=== PATIENT | female | born 1930 | race Caucasian/White ===

== ENCOUNTER 2017-04-16 09:51 | Inpatient (IN) | payer OTHER ==
[~2017-04-16] VITALS: Ht 152.4 cm; Wt 54.2 kg
[~2017-04-16 09:51] MED LIST: ACET1SUP84 PO; ALLO100T PO; CALC-220 PO; CEPH500C PO; FERR1TAB23 PO; GABA10PO PO; LSN/2025 PO; MELA1TAB4 PO; METO25TA56 PO; PANT40TA PO; PRT40 PO; PRVC/40 PO; SENN1TAB65 PO; TRAM-10 PO; ULT50X PO
[2017-04-16] MEDS ORDERED: ACET325T96 PO (10:09)
[2017-04-16] MEDS ORDERED: SODIUM CHLORIDE 0.9% 1000ML 500 ML IV STA (10:09)
[2017-04-16] MEDS ORDERED: CALC-354 PO (10:09)
--- NOTE | 2017-04-16 10:17 | EMERGENCY ROOM VISIT NOTE ---
History Report prepared by Portia: Niyah Fernandez Under the Supervision of: Dr. Hector Andrade M.D. First contact with patient: 10:01 Stated Complaint: ALTERED MENTAL STATUS History of Present Illness The patient is an 86 year old female who presents to the Emergency Room via ALS with an episode of confusion that occurred nine hours ago. Per the patient's daughter, the patient was started in Xarelto in February after finding a DVT from her left groin to her left lower leg. She notes that since then, the patient has been weak and fatigued. The patient's daughter states that the patient has had difficulty transferring herself from a scooter to the toilet. She states that the patient is supposed to be on Xarelto until April. The patient's daughter states that at 0100 this morning the patient needed to go to the bathroom, noting that the patient became combative. She states that the patient had difficulty walking back after using the bathroom. She additionally notes that this morning the patient has been experiencing shakiness, clamminess , and still appears confused, noting that she is not quite herself. The patient 's daughter notes that the patient has been following with the wound clinic, noting that her left lower extremity swelling has improved. She states that the patient has been experiencing intermittent vomiting and diarrhea, noting that the patient took Imodium yesterday. The patient's daughter denies the patient having any fever, urinary symptoms, melena, or hematochezia. Source of History: patient Onset: nine hours ago Position: other (global) Quality: other (confusion) Timing: other (an episode) Associated Symptoms: + vomiting, + diarrhea, + fatigue, + weakness, No fevers, No melena, No hematochezia, No urinary symptoms Review of Systems See HPI for pertinent positives & negatives. A total of 10 systems reviewed and were otherwise negative. Past Medical & Surgical Medical Problems: (1) Arthritis (2) CVA (cerebral vascular accident) (3) HTN (hypertension) (4) Intetinal removal of cancerous polyp (5) Kidney disease Family History Diabetes mellitus Hypertension Kidney disease Kidney stones Social History Smoking Status: Never Smoker Alcohol Use: none Drug Use: none Marital Status: Housing Status: lives with family Occupation Status: retired Current/Historical Medications Scheduled Allopurinol (Zyloprim), 100 MG PO QAM Calcium Carbonate-Cholecalcife (Caltrate 600+D), 1 TAB PO BID Ferrous Sulfate (Iron), 325 MG PO BID Gabapentin (Neurontin), 300 MG PO TID Hctz/Lisinopril (Lisinopril/Hctz 20/25 Mg), 1 TAB PO QAM Metoprolol Tartrate (Lopressor) (Lopressor), 25 MG PO BID Pantoprazole (Protonix), 40 MG PO QAM Pravastatin Sod (Pravastatin Sodium), 40 MG PO DAILY Prednisone (Prednisone), 5 MG PO DAILY Rivaroxaban (Xarelto), 15 MG PO DAILY Scheduled PRN Hydrocodone/Acetaminophen 5MG/325MG ([place] 5MG/325MG), 1 TABLET PO Q6H PRN for Pain Polyethylene Glycol-Propylene (Systane), 1 DROPS OPB DAILY PRN for DRYNESS Allergies Coded Allergies: Horse-derived Products (Verified Allergy, Unknown, Tetanus - with horse serum (equine), 04/16/17) NO KNOWN DRUG ALLERGIES (Verified Allergy, Unknown, ., 03/22/15) Physical Exam Vital Signs Date Time Temp Pulse Resp B/P (MAP) Pulse Ox O2 Delivery O2 Flow Rate FiO2 04/16/17 13:13 72 04/16/17 13:05 70 18 91/42 99 Room Air 04/16/17 12:58 Room Air 04/16/17 12:29 79 16 143/90 95 Room Air 04/16/17 11:11 84 18 143/90 94 Room Air 04/16/17 10:46 95 Room Air 04/16/17 10:11 36.6 108 18 170/82 95 Room Air 04/16/17 10:02 78 Physical Exam GENERAL: Patient is in no acute distress. HEENT: No acute trauma, normocephalic atraumatic, mucous membranes moist, no nasal congestion, no scleral icterus. NECK: No stridor, no adenopathy, no meningismus, trachea is midline. CHEST: Contusions to the right breast. LUNGS: Clear to auscultation bilaterally, no wheeze, no rhonchi, breath sounds equal. HEART: Without murmurs gallops or rubs, regular rate and rhythm. ABDOMEN: Soft, nontender, bowel sounds positive, no hernias, no peritonitis. EXTREMITIES: Healing wound to the distal left leg/ankle, no drainage, surrounding erythema and warmth from the ankle down, including the foot, edema of the left foot. NEUROLOGIC: Awake, somewhat confused, moving all extremities SKIN: No rash, no jaundice, no diaphoresis. Medical Decision & Procedures ER Provider Diagnostic Interpretation: Radiology results as stated below per my review and radiologist interpretation: CT OF THE HEAD WITHOUT CONTRAST CLINICAL HISTORY: Altered mental status. Weakness. COMPARISON STUDY: No previous studies for comparison. CT DOSE: 614.27 mGy.cm TECHNIQUE: Helical axial images of the head were obtained without IV contrast. Automated exposure control was utilized for the study. A dose lowering technique was utilized adhering to the principles of ALARA. FINDINGS: No acute intracranial hemorrhage, midline shift or mass effect is present. Ventricular system is mildly dilated likely to due atrophy. Basilar cisterns are patent. There are no extra-axial collections. Chang-white differentiation is maintained. There are no findings to suggest acute dural sinus thrombosis or acute territorial infarct. There are are no significant calvarial abnormalities. IMPRESSION: No acute intracranial findings. Electronically signed by: Felix Koroma M.D. 04/16/2017 11:34 AM Dictated Date/Time: 04/16/2017 11:32 AM CHEST ONE VIEW PORTABLE CLINICAL HISTORY: Altered mental status. Weakness. COMPARISON STUDY: Chest radiograph December 07, 2014. FINDINGS: The patient is rotated. Linear left midlung opacity represents atelectasis. There is no consolidation to suggest pneumonia and there is no evidence of pulmonary edema. Cardiac size is at upper limits of normal. No pneumothorax or pleural effusion is present. Elevation of the right humeral head may reflect a chronic rotator cuff tear. Extensive vascular calcification is noted within the upper abdomen. IMPRESSION: No acute cardiopulmonary findings. Electronically signed by: Felix Koroma M.D. 04/16/2017 11:18 AM Dictated Date/Time: 04/16/2017 11:16 AM Laboratory Results 04/16/17 09:25 Red Blood Count 3.63, Mean Corpuscular Volume 97.5, Mean Corpuscular Hemoglobin 33.6, Mean Corpuscular Hemoglobin Concent 34.5, Mean Platelet Volume 9.9, Neutrophils (%) (Auto) 83.3, Lymphocytes (%) (Auto) 6.8, Monocytes (%) (Auto) 9.0, Eosinophils (%) (Auto) 0.4, Basophils (%) (Auto) 0.1, Neutrophils # (Auto) 13.26, Lymphocytes # (Auto) 1.09, Monocytes # (Auto) 1.43, Eosinophils # (Auto) 0.07, Basophils # (Auto) 0.02 04/16/17 09:25 Test 04/16/17 09:25 04/16/17 10:30 04/16/17 10:45 White Blood Count 15.94 K/uL (4.8-10.8) Red Blood Count 3.63 M/uL (4.2-5.4) Hemoglobin 12.2 g/dL (12.0-16.0) Hematocrit 35.4 % (37-47) Mean Corpuscular Volume 97.5 fL (80-100) Mean Corpuscular Hemoglobin 33.6 pg (25-34) Mean Corpuscular Hemoglobin Concent 34.5 g/dl (32-36) Platelet Count 283 K/uL (130-400) Mean Platelet Volume 9.9 fL (7.4-10.4) Neutrophils (%) (Auto) 83.3 % Lymphocytes (%) (Auto) 6.8 % Monocytes (%) (Auto) 9.0 % Eosinophils (%) (Auto) 0.4 % Basophils (%) (Auto) 0.1 % Neutrophils # (Auto) 13.26 K/uL (1.4-6.5) Lymphocytes # (Auto) 1.09 K/uL (1.2-3.4) Monocytes # (Auto) 1.43 K/uL (0.11-0.59) Eosinophils # (Auto) 0.07 K/uL (0-0.5) Basophils # (Auto) 0.02 K/uL (0-0.2) RDW Standard Deviation 51.5 fL (36.4-46.3) RDW Coefficient of Variation 14.6 % (11.5-14.5) Immature Granulocyte % (Auto) 0.4 % Immature Granulocyte # (Auto) 0.07 K/uL (0.00-0.02) Prothrombin Time 19.4 SECONDS (9.0-12.0) Prothromb Time International Ratio 1.8 (0.9-1.1) Activated Partial Thromboplast Time 59.9 SECONDS (21.0-31.0) Partial Thromboplastin Ratio 2.3 Anion Gap 9.0 mmol/L (3-11) Est Creatinine Clear Calc Drug Dose 14.5 ml/min Estimated GFR () 25.6 Estimated GFR (Non- 22.0 BUN/Creatinine Ratio 24.4 (10-20) Calcium Level 8.9 mg/dl (8.5-10.1) Magnesium Level 1.5 mg/dl (1.8-2.4) Total Bilirubin 0.4 mg/dl (0.2-1) Aspartate Amino Transf (AST/SGOT) 18 U/L (15-37) Alanine Aminotransferase (ALT/SGPT) 14 U/L (12-78) Alkaline Phosphatase 99 U/L (45-117) Troponin I < 0.015 ng/ml (0-0.045) Total Protein 6.8 gm/dl (6.4-8.2) Albumin 2.8 gm/dl (3.4-5.0) Globulin 4.0 gm/dl (2.5-4.0) Albumin/Globulin Ratio 0.7 (0.9-2) Thyroid Stimulating Hormone (TSH) 1.900 uIu/ml (0.300-4.500) Chemistry Specimen Hemolysis Lactic Acid Level 1.5 mmol/L (0.4-2.0) Ammonia < 10.0 umol/L (11-32) Urine Color YELLOW Urine Appearance CLEAR (CLEAR) Urine pH 5.0 (4.5-7.5) Urine Specific [place] 1.015 (1.000-1.030) Urine Protein NEG (NEG) Urine Glucose (UA) NEG (NEG) Urine Ketones NEG (NEG) Urine Occult Blood NEG (NEG) Urine Nitrite NEG (NEG) Urine Bilirubin NEG (NEG) Urine Urobilinogen NEG (NEG) Urine Leukocyte Esterase MODERATE (NEG) Urine WBC (Auto) 10-30 /hpf (0-5) Urine RBC (Auto) 0-4 /hpf (0-4) Urine Hyaline Casts (Auto) 0 /lpf (0-5) Urine Epithelial Cells (Auto) 0-5 /lpf (0-5) Urine Bacteria (Auto) 1+ (NEG) Laboratory results reviewed by me. Medications Administered Medications (Trade) Dose Ordered Sig/Alicia Route Start Time Stop Time Status Last Admin Dose Admin Sodium Chloride 500 ml @ 999 mls/hr Q31M STAT IV 04/16/17 10:09 04/16/17 10:39 DC 04/16/17 10:09 999 MLS/HR Acetaminophen (Tylenol Tab) 1,000 mg NOW STAT PO 04/16/17 10:56 04/16/17 10:57 DC 04/16/17 11:06 1,000 MG Sodium Chloride 1,000 ml @ 125 mls/hr Q8H STAT IV 04/16/17 11:16 04/16/17 19:15 04/16/17 11:38 125 MLS/HR Piperacillin Sod/ Tazobactam Sod (Zosyn Iv) 4.5 gm NOW STAT IV 04/16/17 11:16 04/16/17 11:17 DC 04/16/17 11:38 4.5 GM Morphine Sulfate (MoRPHine SULFATE INJ) 2 mg NOW STAT IV 04/16/17 12:24 04/16/17 12:25 DC 04/16/17 12:29 2 MG ECG Indication: other (confusion) Rate (beats per minute): 84 Rhythm: normal sinus Findings: nonspecific-ST abn, no acute ischemic change, no ectopy, other ( significant baseline artifact) ED Course 1002: The patient was evaluated in room B5. A complete history and physical exam was performed. 1009: Ordered Sodium Chloride 500 ml @ 999 mls/hr IV. 1056: Ordered Tylenol Tab 1000 mg PO. 1116: Ordered Zosyn IV 4.5 gm IV, Sodium Chloride 1000 ml @ 125 mls/hr IV. 1147: I reevaluated the patient and she is resting. I discussed the exam findings with her daughters and I discussed the treatment plan. They verbalized complete understanding and agreement. The patient will be evaluated for further treatment. 1158: I discussed the patients case with Tawanna Forrest. He is going to evaluate the patient for further treatment. 1224: Ordered Morphine Sulfate 2 mg IV. Medical Decision The patient is an 86 year old female who presents to the ED with complaints of confusion. Differential diagnoses considered include Sepsis, cellulitis, dehydration, electrolyte imbalance, liver or renal failure, pneumonia, stroke, intracranial bleeding, UTI. There is a moderate leukocytosis which would be consistent with infection. No concerning anemia. There is evidence for dehydration and acute renal failure. Magnesium is somewhat low. No hepatitis or thyroid dysfunction. Urinalysis shows possible infection versus contamination, urine culture is pending. Blood cultures are pending. EKG shows a normal sinus rhythm, no acute ischemia. Cardiac enzyme testing times one is not consistent with acute cardiac injury. Chest x-ray does not show pneumonia or CHF. Brain CT shows no acute bleed or mass effect. Lactic acid level is not elevated making sepsis less likely. A coagulopathy is present, likely consistent with her Xarelto use. Ammonia level is not elevated. The patient received IV saline, oral Tylenol, IV morphine. She was given IV Zosyn. The patient appears to have a left ankle and foot cellulitis. I think this has caused her confusion. She also is acutely dehydrated and in some renal failure. Her white count is elevated. Admission/observation is warranted. I spoke to the family, I talked to the patient. Case management has been involved. The on-call hospitalist was consulted. Medication Reconcilliation Current Medication List: was personally reviewed by me Blood Pressure Screening Patient's blood pressure: Elevated blood pressure Blood pressure disposition: Elevated BP felt to be situational, Did not require urgent referral Consults Time Called: 1146 Consulting Physician: Tawanna Forrest Returned Call: 1158 I discussed the patients case with Tawanna Forrest. He is going to evaluate the patient for further treatment. Impression Primary Impression: Cellulitis of left foot Additional Impressions: Acute renal failure Change in mental status Scribe Attestation The scribe's documentation has been prepared under my direction and personally reviewed by me in its entirety. I confirm that the note above accurately reflects all work, treatment, procedures, and medical decision making performed by me. Departure Information Dispostion Being Evaluated By Hospitalist Referrals Santi Diaz M.D. (PCP) Problem Qualifiers
[2017-04-16] MEDS ORDERED: GABA-113 PO (10:25)
[2017-04-16] MEDS ORDERED: RIVA1.5T PO (10:31)
[2017-04-16] MEDS ORDERED: HYDR-5688 PO (10:32)
[2017-04-16] MEDS ORDERED: PRED-301 PO (10:34)
[2017-04-16] MEDS ORDERED: POLYSOL4 OPB (10:36)
[2017-04-16 10:42] LABS: BASO % 0.1 %; BASO ABS # 0.02 K/uL (0-0.2); COMPLETE YES; EOS % 0.4 %; HEMATOCRIT 35.4 % (37-47); IG% 0.4 %; LYMPH % 6.8 %; LYMPH ABS # 1.09 K/uL (1.2-3.4); MEAN CELL VOLUME 97.5 fL (80-100); MEAN CORPUSCULAR HEMOGLOBIN 33.6 pg (25-34); MEAN CORPUSCULAR HGB CONC 34.5 g/dl (32-36); MEAN PLATELET VOLUME 9.9 fL (7.4-10.4); NEUT % 83.3 %; PLATELET COUNT 283 K/uL (130-400); RED BLOOD COUNT 3.63 M/uL (4.2-5.4); WHITE BLOOD COUNT 15.94 K/uL (4.8-10.8)
[2017-04-16 10:56] LABS: ALT/SGPT 14 U/L (12-78); AST/SGOT 18 U/L (15-37); BLOOD UREA NITROGEN 49 mg/dl (7-18); BUN/CREATININE RATIO 24.4 (10-20); CALCIUM 8.9 mg/dl (8.5-10.1); CARBON DIOXIDE 24 mmol/L (21-32); CHLORIDE 100 mmol/L (98-107); GLUCOSE 99 mg/dl (70-99); MAGNESIUM 1.5 mg/dl (1.8-2.4); POTASSIUM 4.8 mmol/L (3.5-5.1); SODIUM 133 mmol/L (136-145)
[2017-04-16] MEDS ORDERED: ACETAMINOPHEN 500 MG TAB PO STA (10:56)
[2017-04-16 10:57] LABS: INR 1.8 (0.9-1.1); PARTIAL THROMBOPLASTIN RATIO 2.3; PROTHROMBIN TIME (PATIENT) 19.4 SECONDS (9.0-12.0)
[2017-04-16 11:01] LABS: URINE APPEARANCE CLEAR (CLEAR); URINE BILIRUBIN NEG (NEG); URINE COLOR YELLOW; URINE EPITHELIAL CELL AUTO 0-5 /lpf (0-5); URINE NITRITE NEG (NEG); URINE SPECIFIC GRAVITY 1.015 (1.000-1.030); UROBILINOGEN NEG (NEG); ZZURINE CULT IF INDIC CATH YES
[2017-04-16 11:02] LABS: MANUAL MICROSCOPIC REQUIRED? NO; REVIEW REQ? NO
[2017-04-16 11:03] LABS: ALB/GLOB RATIO 0.7 (0.9-2); ALKALINE PHOSPHATASE 99 U/L (45-117)
[2017-04-16] MEDS ORDERED: SODIUM CHLORIDE 0.9% 1000ML 1,000 ML IV STA (11:16)
[2017-04-16] MEDS ORDERED: PIPERACILLIN/TAZOBACTAM 4.5 GM/100ML D5W IV STA (11:16)
--- NOTE | 2017-04-16 11:19 | DIAGNOSTIC IMAGING REPORT ---
CHEST ONE VIEW PORTABLE CLINICAL HISTORY: Altered mental status. Weakness. COMPARISON STUDY: Chest radiograph December 07, 2014. FINDINGS: The patient is rotated. Linear left midlung opacity represents atelectasis. There is no consolidation to suggest pneumonia and there is no evidence of pulmonary edema. Cardiac size is at upper limits of normal. No pneumothorax or pleural effusion is present. Elevation of the right humeral head may reflect a chronic rotator cuff tear. Extensive vascular calcification is noted within the upper abdomen. IMPRESSION: No acute cardiopulmonary findings. Electronically signed by: Felix Koroma M.D. 04/16/2017 11:18 AM Dictated Date/Time: 04/16/2017 11:16 AM
--- NOTE | 2017-04-16 11:36 | DIAGNOSTIC IMAGING REPORT ---
CT OF THE HEAD WITHOUT CONTRAST CLINICAL HISTORY: Altered mental status. Weakness. COMPARISON STUDY: No previous studies for comparison. CT DOSE: 614.27 mGy.cm TECHNIQUE: Helical axial images of the head were obtained without IV contrast. Automated exposure control was utilized for the study. A dose lowering technique was utilized adhering to the principles of ALARA. FINDINGS: No acute intracranial hemorrhage, midline shift or mass effect is present. Ventricular system is mildly dilated likely to due atrophy. Basilar cisterns are patent. There are no extra-axial collections. Chang-white differentiation is maintained. There are no findings to suggest acute dural sinus thrombosis or acute territorial infarct. There are are no significant calvarial abnormalities. IMPRESSION: No acute intracranial findings. Electronically signed by: Felix Koroma M.D. 04/16/2017 11:34 AM Dictated Date/Time: 04/16/2017 11:32 AM
[2017-04-16] MEDS ORDERED: MoRPHine SULFATE 2 MG/ML CARP IV STA (12:24)
[2017-04-16 12:58] VITALS: Ht 152.4 cm; Wt 54.2 kg
--- NOTE | 2017-04-16 14:13 | DIAGNOSTIC IMAGING REPORT ---
ULTRASOUND BILATERAL LOWER EXTREMITY VENOUS CLINICAL HISTORY: Change in mental status. Reported history of deep venous thrombosis.. COMPARISON STUDY: No priors. TECHNIQUE: Real-time, grayscale, and color Doppler sonography of the deep veins of the right and left lower extremity was performed from the inguinal crease to the calf. Compression and augmentation were utilized. Examination is significantly degraded by lack of patient cooperation. FINDINGS: Right lower extremity: There is no sonographic evidence of deep venous thrombosis identified in the right lower extremity. The common femoral, superficial femoral, and popliteal veins are patent and normally compressible. The greater saphenous vein and the profunda femoris vein at the junction with the common femoral vein are clear. The visualized calf veins are patent. Left lower extremity: There is no sonographic evidence of deep venous thrombosis identified in the visualized vessels of the left lower extremity. The common femoral as well as the proximal to mid portions of the superficial femoral vein are patent and normally compressible. The distal superficial femoral vein, popliteal vein, and the calf vessels are not well visualized. The greater saphenous vein and the profunda femoris vein at the junction with the common femoral vein are clear. IMPRESSION: There is no sonographic evidence of deep venous thrombosis identified in the right or left lower extremity noting nonvisualization of the distal veins of the left lower extremity as detailed above. Electronically signed by: Hector Thakkar M.D. 04/16/2017 2:11 PM Dictated Date/Time: 04/16/2017 2:09 PM
[2017-04-16 14:56] VITALS: BP 123/71; PULSE 72; TEMP 36.4; O2SAT 100
[2017-04-16] MEDS ORDERED: PIPERACILL/TAZOBAC CONSULT ACTIVE PRN (15:00)
--- NOTE | 2017-04-16 15:43 | History and Physical ---
History & Physical Date & Time of Service: Apr 16, 2017 at 15:22 Chief Complaint: Cellulitis Of Left Foot, Cva, Kidney Disease Primary Care Physician: Santi Diaz M.D. History of Present Illness This is an 86yo F with a PMH of L lower extremity DVT, paroxysmal A fib, CKD III , HTN who presents with confusion and increased agitation at night over the past week. Patient lives with her daughter, who reports that patient has become combative and agitated at night. Family has also noticed patient become increasingly confused about short terms events and her location over the past few days. In February, patient was diagnosed with an extensive L DVT at an outside hospital and was discharged on Xarelto. Was originally taking 15mg BID for the first three weeks but dose has since been decreased to 15mg daily. Over the past few days, family has noticed her L LE, specifically around the lateral ankle, becoming red and swollen. Patient has also become increasingly fatigued. Patient was confused and lethargic on exam, resulting in a limited ROS. Endorsed pain in L LE as well as mild, diffuse abdominal pain. Denies fever, chills, CP, SOB, nausea/vomiting, urinary symptoms. 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 Past Medical/Surgical History Medical Problems: (1) Arthritis Status: Chronic (2) CVA (cerebral vascular accident) Status: Resolved (3) HTN (hypertension) Status: Chronic (4) Intetinal removal of cancerous polyp Status: Resolved (5) Kidney disease Status: Chronic Family History Diabetes mellitus Hypertension Kidney disease Kidney stones Social History Smoking Status: Never Smoker Drug Use: none Marital Status: Occupational Status: retired Allergies Coded Allergies: Horse-derived Products (Verified Allergy, Unknown, Tetanus - with horse serum (equine), 04/16/17) NO KNOWN DRUG ALLERGIES (Verified Allergy, Unknown, ., 03/22/15) Home Medications Scheduled Allopurinol (Zyloprim), 100 MG PO QAM Calcium Carbonate-Cholecalcife (Caltrate 600+D), 1 TAB PO BID Ferrous Sulfate (Iron), 325 MG PO BID Gabapentin (Neurontin), 300 MG PO TID Hctz/Lisinopril (Lisinopril/Hctz 20/25 Mg), 1 TAB PO QAM Metoprolol Tartrate (Lopressor) (Lopressor), 25 MG PO BID Pantoprazole (Protonix), 40 MG PO QAM Pravastatin Sod (Pravastatin Sodium), 40 MG PO DAILY Prednisone (Prednisone), 5 MG PO DAILY Rivaroxaban (Xarelto), 15 MG PO DAILY Scheduled PRN Hydrocodone/Acetaminophen 5MG/325MG ([place] 5MG/325MG), 1 TABLET PO Q6H PRN for Pain Polyethylene Glycol-Propylene (Systane), 1 DROPS OPB DAILY PRN for DRYNESS Review of Systems Ten systems reviewed and negative except as noted in the HPI. Physical Exam Vital Signs Date Time Temp Pulse Resp B/P (MAP) Pulse Ox O2 Delivery O2 Flow Rate FiO2 04/16/17 14:56 36.4 72 16 123/71 (88) 100 Room Air 04/16/17 13:13 72 04/16/17 13:05 70 18 91/42 99 Room Air 04/16/17 12:58 Room Air 04/16/17 12:29 79 16 143/90 95 Room Air 04/16/17 11:11 84 18 143/90 94 Room Air 04/16/17 10:46 95 Room Air 04/16/17 10:11 36.6 108 18 170/82 95 Room Air 04/16/17 10:02 78 General Appearance: WD/WN (Patient sleeping during exam but arousable to questions. Limited mobility 2/2 chronic L sided weakness ), + mild distress Head: normocephalic, atraumatic Eyes: normal inspection, sclerae normal ENT: hearing grossly normal Neck: supple, no adenopathy, trachea midline Respiratory/Chest: chest non-tender, lungs clear, normal breath sounds, no respiratory distress, no accessory muscle use Cardiovascular: regular rate, rhythm, no murmur Abdomen/GI: normal bowel sounds, non tender, soft, no organomegaly Back: normal inspection Extremities/Musculoskelatal: no calf tenderness, no pedal edema (Some breakdown noted on L heel that has been present for years, per daughter. No drainage, swelling, etc.), + pertinent finding (L lateral ankle with erythema, minimal swelling and a few small areas of skin breakdown. No warmth to touch or visbale drainage.) Neurologic/Psych: alert (Oriented to person and sitatuion, but not to time or place), + motor weakness (Chronic L sided weakness. Unable to fully assess due to pt with AMS ) Skin: normal color, warm/dry Diagnostics Laboratory Results Results Past 24 Hours Test 04/16/17 09:25 04/16/17 10:30 04/16/17 10:45 Range/Units White Blood Count 15.94 4.8-10.8 K/uL Red Blood Count 3.63 4.2-5.4 M/uL Hemoglobin 12.2 12.0-16.0 g/dL Hematocrit 35.4 37-47 % Mean Corpuscular Volume 97.5 80-100 fL Mean Corpuscular Hemoglobin 33.6 25-34 pg Mean Corpuscular Hemoglobin Concent 34.5 32-36 g/dl Platelet Count 283 130-400 K/uL Mean Platelet Volume 9.9 7.4-10.4 fL Neutrophils (%) (Auto) 83.3 % Lymphocytes (%) (Auto) 6.8 % Monocytes (%) (Auto) 9.0 % Eosinophils (%) (Auto) 0.4 % Basophils (%) (Auto) 0.1 % Neutrophils # (Auto) 13.26 1.4-6.5 K/uL Lymphocytes # (Auto) 1.09 1.2-3.4 K/uL Monocytes # (Auto) 1.43 0.11-0.59 K/uL Eosinophils # (Auto) 0.07 0-0.5 K/uL Basophils # (Auto) 0.02 0-0.2 K/uL RDW Standard Deviation 51.5 36.4-46.3 fL RDW Coefficient of Variation 14.6 11.5-14.5 % Immature Granulocyte % (Auto) 0.4 % Immature Granulocyte # (Auto) 0.07 0.00-0.02 K/uL Prothrombin Time 19.4 9.0-12.0 SECONDS Prothromb Time International Ratio 1.8 0.9-1.1 Activated Partial Thromboplast Time 59.9 21.0-31.0 SECONDS Partial Thromboplastin Ratio 2.3 Sodium Level 133 136-145 mmol/L Potassium Level 4.8 3.5-5.1 mmol/L Chloride Level 100 98-107 mmol/L Carbon Dioxide Level 24 21-32 mmol/L Anion Gap 9.0 3-11 mmol/L Blood Urea Nitrogen 49 7-18 mg/dl Creatinine 2.00 0.60-1.20 mg/dl Est Creatinine Clear Calc Drug Dose 14.5 ml/min Estimated GFR () 25.6 Estimated GFR (Non- 22.0 BUN/Creatinine Ratio 24.4 10-20 Random Glucose 99 70-99 mg/dl Calcium Level 8.9 8.5-10.1 mg/dl Magnesium Level 1.5 1.8-2.4 mg/dl Total Bilirubin 0.4 0.2-1 mg/dl Aspartate Amino Transf (AST/SGOT) 18 15-37 U/L Alanine Aminotransferase (ALT/SGPT) 14 12-78 U/L Alkaline Phosphatase 99 45-117 U/L Troponin I < 0.015 0-0.045 ng/ml Total Protein 6.8 6.4-8.2 gm/dl Albumin 2.8 3.4-5.0 gm/dl Globulin 4.0 2.5-4.0 gm/dl Albumin/Globulin Ratio 0.7 0.9-2 Thyroid Stimulating Hormone (TSH) 1.900 0.300-4.500 uIu/ml Chemistry Specimen Hemolysis Lactic Acid Level 1.5 0.4-2.0 mmol/L Ammonia < 10.0 11-32 umol/L Urine Color YELLOW Urine Appearance CLEAR CLEAR Urine pH 5.0 4.5-7.5 Urine Specific [place] 1.015 1.000-1.030 Urine Protein NEG NEG Urine Glucose (UA) NEG NEG Urine Ketones NEG NEG Urine Occult Blood NEG NEG Urine Nitrite NEG NEG Urine Bilirubin NEG NEG Urine Urobilinogen NEG NEG Urine Leukocyte Esterase MODERATE NEG Urine WBC (Auto) 10-30 0-5 /hpf Urine RBC (Auto) 0-4 0-4 /hpf Urine Hyaline Casts (Auto) 0 0-5 /lpf Urine Epithelial Cells (Auto) 0-5 0-5 /lpf Urine Bacteria (Auto) 1+ NEG Microbiology Results 04/16/17 Blood Culture, Received Pending 04/16/17 Blood Culture, Received Pending 04/16/17 Urine Culture, Received Pending Diagnostic Radiology Head CT: IMPRESSION: No acute intracranial findings. Bilateral LE U/S: IMPRESSION: There is no sonographic evidence of deep venous thrombosis identified in the right or left lower extremity noting nonvisualization of the distal veins of the left lower extremity as detailed above. CXR normal EKG Normal sinus rhythm Low voltage QRS Nonspecific ST and T wave abnormality Impression Assessment and Plan This is an 86yo F with a PMH of L lower extremity DVT, paroxysmal A fib, CKD III , HTN who presents with confusion and increased agitation at night over the past week. AMS: -Patient oriented to self but not place and time -Likely 2/2 L leg cellulitis vs. bacteria in urine -Denies urinary symptoms at this time -CT head without acute abnormalities -Started broad spectrum antibiotics -Will continue to monitor L LE Cellulitis: -Leukocytosis of 15.9 -Erythema and mild swelling on exam -Started on Zosyn -Monitor CBC L heel breakdown: -Chronic breakdown since a hospitalization a year prior -Patient with decreased sensation on L side 2/2 CVA years ago -Wound care consulted H/o L LE DVT: -Diagnosed in February, -No L LE DVT visualized on today's LE ultrasound -Continue course of Xarelto (3 months in total) -Follow up with PCP for continued management DICKSON on CKD III: -Cr elevated to 2 from a baseline ~1.2 -Renally dosed antibiotic -Held Lisinopril/HCTZ -Started IVF Paroxysmal A Fib: -Rate controlled -NSR on EKG -Continue metoprolol, anticoagulation Hypomagnesemia: -H/o fluctuating Mg -Replaced -Continue to monitor HTN: -Normotensive -Held Lisinopril/HCTZ 2/2 DICKSON -Started Amlodipine 5mg Remote CVA with residual L sided weakness: -Chronic L sided weakness -Unable to fully assess motor/sensory function due to AMS -Head CT with enlarged ventricles 2/2 atrophy -No acute findings on head CT DVT Ppx: On Xarelto Code status: FULL PCP: Alirio Dispo: SW consulted to help with discharge placement. Lives with daughter but may require rehab after admission. Attending Physician Dr. Hobbs Addendum I have seen and examined the patient with JANIS Magdaleno and agree with the assessment and plan and would like to comment This is a 86 F with history of deep vein thrombus of lower extremity who as per her daughter occurred around 3 months ago in December 2016 and has remaining tablets of Xarelto due for completion next month in April, who on ultrasound in the admission has no evidence of residual deep vein thrombosis. Patient has has history of lower extremity ulcers near the ankle area of left foot in stages of healing with areas of erythema. As per patient's daughter, this was noticeable x 4 days ago on Wednesday and patient has been following care at outpatient wound care center. However was observed to be more "combative" at night and daughter brought patient to the ED for evaluation. On labs patient has leukocytosis suggestive of infectious process likely due to cellulitis of left lower extremity. Patient was seen and examined in the ED. She was lethargic but arousable to voice and able to answer questions in short sentences but majority of history was provided by patient's daughter. The patient is alert to person but not to time or place. Patient has history of stroke in 1987 with residual weakness of left side but this was difficult to assess as patient was lethargic. No acute stroke on head CT on this admission Will treat cellulitis with renally dosed Zosyn because of CKD vs DICKSON on CKD. There is some pyuria in the urine however patient denies dsyuria. Give IV hydration and replace electrolytes including magnesium. Despite lack of deep vein thrombi found on this admission's ultrasound will continue Xarelto to complete outpatient DVT therapy and because of history of arrhythmia. May need to re-evaluate anticoagulation use as outpatient. Level of Care Med/Surg Advanced Directives Existing Living Will: No Existing Power of Crew Clerk: No Resuscitation Status FULL RESUSCITATION VTE Prophylaxis VTE Risk Assessment Done? Y/N: Yes Risk Level: High Given or contraindicated: Other Anticoagulation (Xarelto)
[2017-04-16] MEDS: GABAPENTIN 300 MG CAP PO SCH ×2 (15:51→20:05)
[2017-04-16] MEDS: SODIUM CHLORIDE 0.9% 1000ML 1,000 ML IV SCH (16:56)
[2017-04-16] MEDS: MAGNESIUM SULFATE 1GM / D5W 1 GM in PREMIXED IN D5W 100 ML IV SCH ×2 (16:56→18:09)
[2017-04-16] MEDS ORDERED: MAGNESIUM SULFATE 1GM / D5W 2 GM in PREMIXED IN D5W 100 ML IV SCH (18:00)
[2017-04-16] MEDS: PIPERACILL/TAZOBAC IV 3.375 GM in DEXTROSE 5% 100ML 100 ML IV SCH (18:10)
[2017-04-16 19:12] VITALS: BP 114/69; PULSE 82; TEMP 36.4; O2SAT 97
[2017-04-16] MEDS: METOPROLOL TARTRATE 25 MG TAB PO SCH (20:05)
[2017-04-16] MEDS: HYDROCODONE/ACETAMOPHEN 5/325MG TAB PO PRN (22:23)
[2017-04-17 00:17] VITALS: BP 122/65; PULSE 89; TEMP 36.5; O2SAT 98
[2017-04-17 03:52] VITALS: BP 125/74; PULSE 73; TEMP 36.3; O2SAT 97
[2017-04-17] MEDS: SODIUM CHLORIDE 0.9% 1000ML 1,000 ML IV SCH ×2 (05:19→17:35)
[2017-04-17] MEDS: PIPERACILL/TAZOBAC IV 3.375 GM in DEXTROSE 5% 100ML 100 ML IV SCH ×2 (05:19→17:32)
[2017-04-17] MEDS: HYDROCODONE/ACETAMOPHEN 5/325MG TAB PO PRN ×2 (07:47→13:37)
[2017-04-17] MEDS: PRAVASTATIN SOD 40 MG TAB PO SCH (07:48)
[2017-04-17] MEDS: PANTOprazole SOD 40 MG TAB PO SCH (07:48)
[2017-04-17] MEDS: RIVAROXABAN TAB 15 MG TAB PO SCH (07:48)
[2017-04-17] MEDS: METOPROLOL TARTRATE 25 MG TAB PO SCH ×2 (07:48→20:00)
[2017-04-17] MEDS: GABAPENTIN 300 MG CAP PO SCH ×3 (07:49→21:55)
[2017-04-17 07:55] VITALS: BP 111/58; PULSE 80; TEMP 36.3; O2SAT 99
[2017-04-17] MEDS ORDERED: AMLODIPINE BESYLATE 5 MG TAB PO SCH (08:00)
[2017-04-17 08:22] LABS: BASO % 0.2 %; BASO ABS # 0.03 K/uL (0-0.2); COMPLETE YES; EOS % 0.7 %; HEMATOCRIT 29.1 % (37-47); IG% 0.6 %; LYMPH % 7.4 %; LYMPH ABS # 0.95 K/uL (1.2-3.4); MEAN CORPUSCULAR HEMOGLOBIN 32.3 pg (25-34); MEAN CORPUSCULAR HGB CONC 33.3 g/dl (32-36); MEAN PLATELET VOLUME 9.2 fL (7.4-10.4); MONO % 7.8 %; NEUT % 83.3 %; PLATELET COUNT 214 K/uL (130-400); WHITE BLOOD COUNT 12.77 K/uL (4.8-10.8)
[2017-04-17 08:31] LABS: INR 1.3 (0.9-1.1); PROTHROMBIN TIME (PATIENT) 14.3 SECONDS (9.0-12.0)
[2017-04-17 08:52] LABS: BUN/CREATININE RATIO 24.8 (10-20); CALCIUM 8.1 mg/dl (8.5-10.1); CREATININE 1.6 mg/dl (0.60-1.20); POTASSIUM 4.1 mmol/L (3.5-5.1)
[2017-04-17 08:58] LABS: ALB/GLOB RATIO 0.7 (0.9-2)
[2017-04-17] MEDS ORDERED: LISINOPRIL/HCTZ 20/25MG TAB PO SCH (09:00)
[2017-04-17 11:43] VITALS: BP 94/52; PULSE 65; TEMP 36.8; O2SAT 99
[2017-04-17 15:55] VITALS: BP 94/53; PULSE 83; TEMP 36.4; O2SAT 95
[2017-04-17] MEDS: HYDROCODONE/ACETAMOPHEN 5/325MG TAB PO SCH (20:00)
[2017-04-17 20:04] VITALS: BP 88/50; PULSE 94; TEMP 36.6; O2SAT 98
--- NOTE | 2017-04-17 22:34 | Progress Note ---
Medicine Progress Note Date & Time of Visit: Apr 17, 2017 at 12:28. Subjective -tolerating PO -afebrile -reports that she is hospitalized for her leg but cannot verbalize whether her leg looks better or not -cannot report clearly if she feels pain or not -appears appropriate but cannot accurately tell her story -brother and sister are in the room but they don't see her often or know her baseline -lives with daughter Ros whom I called Objective Last 8 Hrs Date Time Temp Pulse Resp B/P (MAP) Pulse Ox O2 Delivery O2 Flow Rate FiO2 04/17/17 11:43 36.8 65 18 94/52 (66) 99 Room Air 04/17/17 08:00 Room Air 04/17/17 07:55 36.3 80 20 111/58 (75) 99 Room Air Physical Exam: GEN: frail, elderly, in no acute distress, alert and appropriate. Generally has contractures of L sided extremities. HEENT: NC/AT, normal sclerae CARDIO: reg rate, S1/2 heard without m/g/r LUNGS: CTA bilaterally, no crackles, rales or wheezes, good diaphragmatic excursion ABD: soft, non-tender, non-distended, no rebound or guarding, +BS, no CVA tenderness. EXTREMITY: RP and DP palpable 2+ bilat, no LE swelling or edema, extremities are warm and well-perfused NEURO: CN 2-12 grossly intact MUSC: generally weak and contracted on the L side. Very difficult for her to move her extremities the slightest bit SKIN: warm and dry, Stage II decub on heel. Small crusted lesion that is dry and non-draining on the L ankle. Some erythema surrounding this area. Laboratory Results: 04/17/17 07:33 Red Blood Count 3.00, Mean Corpuscular Volume 97.0, Mean Corpuscular Hemoglobin 32.3, Mean Corpuscular Hemoglobin Concent 33.3, Mean Platelet Volume 9.2, Neutrophils (%) (Auto) 83.3, Lymphocytes (%) (Auto) 7.4, Monocytes (%) (Auto) 7.8, Eosinophils (%) (Auto) 0.7, Basophils (%) (Auto) 0.2, Neutrophils # (Auto) 10.63, Lymphocytes # (Auto) 0.95, Monocytes # (Auto) 0.99, Eosinophils # (Auto) 0.09, Basophils # (Auto) 0.03 04/17/17 07:33 Test 04/16/17 09:25 04/16/17 10:30 04/16/17 10:45 04/17/17 07:33 Activated Partial Thromboplast Time 59.9 SECONDS (21.0-31.0) Partial Thromboplastin Ratio 2.3 Troponin I < 0.015 ng/ml (0-0.045) Thyroid Stimulating Hormone (TSH) 1.900 uIu/ml (0.300-4.500) Chemistry Specimen Hemolysis Lactic Acid Level 1.5 mmol/L (0.4-2.0) Ammonia < 10.0 umol/L (11-32) Urine Color YELLOW Urine Appearance CLEAR (CLEAR) Urine pH 5.0 (4.5-7.5) Urine Specific [place] 1.015 (1.000-1.030) Urine Protein NEG (NEG) Urine Glucose (UA) NEG (NEG) Urine Ketones NEG (NEG) Urine Occult Blood NEG (NEG) Urine Nitrite NEG (NEG) Urine Bilirubin NEG (NEG) Urine Urobilinogen NEG (NEG) Urine Leukocyte Esterase MODERATE (NEG) Urine WBC (Auto) 10-30 /hpf (0-5) Urine RBC (Auto) 0-4 /hpf (0-4) Urine Hyaline Casts (Auto) 0 /lpf (0-5) Urine Epithelial Cells (Auto) 0-5 /lpf (0-5) Urine Bacteria (Auto) 1+ (NEG) White Blood Count 12.77 K/uL (4.8-10.8) Red Blood Count 3.00 M/uL (4.2-5.4) Hemoglobin 9.7 g/dL (12.0-16.0) Hematocrit 29.1 % (37-47) Mean Corpuscular Volume 97.0 fL (80-100) Mean Corpuscular Hemoglobin 32.3 pg (25-34) Mean Corpuscular Hemoglobin Concent 33.3 g/dl (32-36) Platelet Count 214 K/uL (130-400) Mean Platelet Volume 9.2 fL (7.4-10.4) Neutrophils (%) (Auto) 83.3 % Lymphocytes (%) (Auto) 7.4 % Monocytes (%) (Auto) 7.8 % Eosinophils (%) (Auto) 0.7 % Basophils (%) (Auto) 0.2 % Neutrophils # (Auto) 10.63 K/uL (1.4-6.5) Lymphocytes # (Auto) 0.95 K/uL (1.2-3.4) Monocytes # (Auto) 0.99 K/uL (0.11-0.59) Eosinophils # (Auto) 0.09 K/uL (0-0.5) Basophils # (Auto) 0.03 K/uL (0-0.2) RDW Standard Deviation 51.6 fL (36.4-46.3) RDW Coefficient of Variation 14.5 % (11.5-14.5) Immature Granulocyte % (Auto) 0.6 % Immature Granulocyte # (Auto) 0.08 K/uL (0.00-0.02) Prothrombin Time 14.3 SECONDS (9.0-12.0) Prothromb Time International Ratio 1.3 (0.9-1.1) Anion Gap 9.0 mmol/L (3-11) Est Creatinine Clear Calc Drug Dose 18.1 ml/min Estimated GFR () 33.5 Estimated GFR (Non- 28.9 BUN/Creatinine Ratio 24.8 (10-20) Calcium Level 8.1 mg/dl (8.5-10.1) Magnesium Level 2.0 mg/dl (1.8-2.4) Total Bilirubin 0.3 mg/dl (0.2-1) Aspartate Amino Transf (AST/SGOT) 12 U/L (15-37) Alanine Aminotransferase (ALT/SGPT) 9 U/L (12-78) Alkaline Phosphatase 79 U/L (45-117) Total Protein 5.3 gm/dl (6.4-8.2) Albumin 2.1 gm/dl (3.4-5.0) Globulin 3.2 gm/dl (2.5-4.0) Albumin/Globulin Ratio 0.7 (0.9-2) Date/Time Source Procedure Growth Status 04/16/17 10:30 Blood Blood Culture Pending Received 04/16/17 10:45 Urine,Catheterized Urine Culture - Preliminary Gram Negative Bacilli Gram Negative Bacilli#2 Resulted Last 24 Hours Test 04/16/17 19:05 04/17/17 07:33 Magnesium Level 2.3 mg/dl 2.0 mg/dl White Blood Count 12.77 K/uL Red Blood Count 3.00 M/uL Hemoglobin 9.7 g/dL Hematocrit 29.1 % Mean Corpuscular Volume 97.0 fL Mean Corpuscular Hemoglobin 32.3 pg Mean Corpuscular Hemoglobin Concent 33.3 g/dl Platelet Count 214 K/uL Mean Platelet Volume 9.2 fL Neutrophils (%) (Auto) 83.3 % Lymphocytes (%) (Auto) 7.4 % Monocytes (%) (Auto) 7.8 % Eosinophils (%) (Auto) 0.7 % Basophils (%) (Auto) 0.2 % Neutrophils # (Auto) 10.63 K/uL Lymphocytes # (Auto) 0.95 K/uL Monocytes # (Auto) 0.99 K/uL Eosinophils # (Auto) 0.09 K/uL Basophils # (Auto) 0.03 K/uL RDW Standard Deviation 51.6 fL RDW Coefficient of Variation 14.5 % Immature Granulocyte % (Auto) 0.6 % Immature Granulocyte # (Auto) 0.08 K/uL Prothrombin Time 14.3 SECONDS Prothromb Time International Ratio 1.3 Sodium Level 136 mmol/L Potassium Level 4.1 mmol/L Chloride Level 105 mmol/L Carbon Dioxide Level 22 mmol/L Anion Gap 9.0 mmol/L Blood Urea Nitrogen 40 mg/dl Creatinine 1.60 mg/dl Est Creatinine Clear Calc Drug Dose 18.1 ml/min Estimated GFR () 33.5 Estimated GFR (Non- 28.9 BUN/Creatinine Ratio 24.8 Random Glucose 67 mg/dl Calcium Level 8.1 mg/dl Total Bilirubin 0.3 mg/dl Aspartate Amino Transf (AST/SGOT) 12 U/L Alanine Aminotransferase (ALT/SGPT) 9 U/L Alkaline Phosphatase 79 U/L Total Protein 5.3 gm/dl Albumin 2.1 gm/dl Globulin 3.2 gm/dl Albumin/Globulin Ratio 0.7 Assessment & Plan 86 yo F presented to ER via EMS after family had difficulty with her bring confused and combative at home in addition to noticing more weakness than usual. She had a stroke in the past with chronic L sided weakness and has limited mobility as a result. Her baseline is bedbound and she is able to perform transfers on her own only. She recently underwent two rounds of abx for 10 days at a time which ended recently; she simultaneously had issues with diarrhea off and on for about one week that was controlled with Imodium per daughter/paint formulator. She is noted to be on [place] 5/325mg BID and chronic daily prednisone at home for pain control with severe OA. She also was recently diagnosed with an extensive DVT in the L leg for which she is on Xarelto and has almost completed her 3 month treatment. Venous doppler of the leg revealed no evidence of DVT yesterday. She had some increased agitation overnight but when Hedrick was placed she calmed down per nursing staff. They report she was having issues with urinary retention. 1. Metabolic encephalopathy-multifactorial including UTI with urinary retention , DICKSON 2/2 dehydration from diarrhea, [place], steroid use, etc. CT head was nonacute and patient seems improved from a mental standpoint today. She is alert and following the conversation. Leg wound does not appear infected. 2. UTI-GNB on culture, cont with empiric Zosyn until culture returns. Leukocytosis has improved. 3. Acute urinary retention likely 2/2 UTI-cont Hedrick and after a few days of treatment of infection, attempt Hedrick trial. 4. L ankle wound-two rounds of abx as outpatient and no infection present at this time. Wound is closed and non-draining. Appreciate wound care consult for this and heel pressure ulcer that is more chronic. 5. Stage II heel ulcer-h/o stroke, turn [id number]. Wound care. Waffle boots are in place. 6. LLE DVT-on Xarelto, patient has leg pain and knee pain which may be related to thromboembolic disease, however, no residual major DVT was seen on admission doppler u/s. She also has severe OA for which she is on prednisone 5mg PO daily , [place] and gabapentin. Finish 3 month Xarelto course. 7. Long-term steroid use-restarted prednisone held on admission to avoid adrenal insufficiency 8. OA-severe, cont [place] BID (now scheduled), gabapentin and prednisone, however, may want to do a trial of Tylenol/Tramadol scheduled to get pain under better control. Will follow clinical course. 9. DICKSON on CKD III-likely related to recent diarrhea with diuretic use. Meds renally dosed and lis/HCTZ held. IVF continued until she is reliably tolerating PO. Improved. 10. h/o stroke with residual L sided weakness and decreased baseline functioning. PT/OT to evaluate. 11. PAF-rate controlled, sinus on EKG and on exam. Cont metoprolol and on Xarelto at this time 12. HTN-Lis/HCTZ held and amlodipine 5mg started. 13. Anemia-uncertain etiology, poss phlebotomy vs dilution from IVF. No indication for transfusion at this time. Will monitor. DVT Ppx: On Xarelto Code status: FULL PCP: Alirio Dispo: SW consulted to help with discharge placement. Lives with daughter but may require rehab after admission. PT/OT ordered for evaluation. Kimberly Silva DO [facility] Hospitalist 1800: I spoke with daughter shantell for 20 minutes and reviewed the assessment and plan with her. All questions were answered. Current Inpatient Medications: Current Inpatient Medications Medications (Trade) Dose Ordered Sig/Alicia Route Start Time Stop Time Status Last Admin Dose Admin Piperacillin Sod/ Tazobactam Sod 3.375 gm/Dextrose 115 ml @ 28.75 mls/ hr Q12H IV 04/16/17 18:00 04/26/17 17:59 04/17/17 05:19 28.75 MLS/HR Gabapentin (Neurontin Cap) 300 mg TID PO 04/16/17 14:00 05/16/17 13:59 04/17/17 07:49 300 MG Metoprolol Tartrate (Lopressor Tab) 25 mg BID PO 04/16/17 20:00 05/16/17 20:59 04/17/17 07:48 25 MG Pantoprazole Sodium (Protonix Tab) 40 mg QAM PO 04/17/17 08:00 05/17/17 08:59 04/17/17 07:48 40 MG Pravastatin Sodium (Pravachol Tab) 40 mg DAILY PO 04/17/17 08:00 05/17/17 08:59 04/17/17 07:48 40 MG Rivaroxaban (Xarelto Tab) 15 mg DAILY PO 04/17/17 08:00 05/17/17 08:59 04/17/17 07:48 15 MG Amlodipine Besylate (Norvasc Tab) 5 mg QAM PO 04/17/17 08:00 05/17/17 08:59 04/17/17 07:49 5 MG Piperacillin Sod/ Tazobactam Sod (Consult) 1 ea UD PRN N/A 04/16/17 15:00 05/16/17 14:59 Sodium Chloride 1,000 ml @ 75 mls/hr [id number] IV 04/16/17 16:00 05/16/17 15:59 04/17/17 05:19 75 MLS/HR Acetaminophen/ Hydrocodone Bitart ([place] 5/325 Tab) 1 tab Q6H PRN PO 04/16/17 22:00 04/30/17 21:59 04/17/17 07:47 1 TAB
[2017-04-18] VITALS (8 sets, daily range): BP systolic 82–119; BP diastolic 47–79; PULSE 64–106; TEMP 36.3–36.7; O2SAT 93–98
[2017-04-18] MEDS: HYDROCODONE/ACETAMOPHEN 5/325MG TAB PO SCH (04:18)
[2017-04-18] MEDS: SODIUM CHLORIDE 0.9% 1000ML 1,000 ML IV SCH (05:02)
[2017-04-18] MEDS: PIPERACILL/TAZOBAC IV 3.375 GM in DEXTROSE 5% 100ML 100 ML IV SCH (05:55)
[2017-04-18 08:32] LABS: HEMATOCRIT 27.1 % (37-47); MEAN CELL VOLUME 97.5 fL (80-100); MEAN CORPUSCULAR HEMOGLOBIN 33.1 pg (25-34); MEAN CORPUSCULAR HGB CONC 33.9 g/dl (32-36); PLATELET COUNT 204 K/uL (130-400); RED BLOOD COUNT 2.78 M/uL (4.2-5.4); WHITE BLOOD COUNT 8.37 K/uL (4.8-10.8)
[2017-04-18 08:58] LABS: BUN/CREATININE RATIO 22.5 (10-20); CALCIUM 7.4 mg/dl (8.5-10.1); CREATININE 1.2 mg/dl (0.60-1.20)
[2017-04-18] MEDS: PRAVASTATIN SOD 40 MG TAB PO SCH (09:21)
[2017-04-18] MEDS: RIVAROXABAN TAB 15 MG TAB PO SCH (09:21)
[2017-04-18] MEDS: PANTOprazole SOD 40 MG TAB PO SCH (09:21)
[2017-04-18] MEDS: GABAPENTIN 300 MG CAP PO SCH ×3 (09:21→21:12)
[2017-04-18] MEDS: CIPROFLOXACIN 500 MG TAB PO SCH ×2 (11:09→21:12)
[2017-04-18] MEDS ORDERED: POLYETHYLENE (MIRALAX) 17 GM PACK PO ONE (14:43)
[2017-04-18] MEDS ORDERED: SODIUM CHLORIDE 0.9% 500ML 500 ML IV SCH (15:00)
[2017-04-18] MEDS: ACETAMINOPHEN 500 MG TAB PO SCH ×2 (15:28→21:53)
[2017-04-18] MEDS: TRAMADOL HCL 50 MG TAB PO SCH ×2 (15:33→22:17)
[2017-04-19] MEDS: ACETAMINOPHEN 500 MG TAB PO SCH ×3 (05:32→22:34)
[2017-04-19] MEDS: TRAMADOL HCL 50 MG TAB PO SCH (06:26)
[2017-04-19 07:45] VITALS: BP 121/65; PULSE 82; TEMP 36.5; O2SAT 100
[2017-04-19] MEDS: POLYETHYLENE (MIRALAX) 17 GM PACK PO SCH (09:00)
--- NOTE | 2017-04-19 09:12 | Progress Note ---
Medicine Progress Note Date & Time of Visit: Apr 18, 2017 at 14:45. Subjective tolerating PO mentating well reporting pain in her L knee that is significant and not much improved with the norco no diarrhea or BM today moved closer to nurses station overnight Objective Last 8 Hrs Date Time Temp Pulse Resp B/P (MAP) Pulse Ox O2 Delivery O2 Flow Rate FiO2 04/18/17 08:00 Room Air 04/18/17 07:42 36.6 89 16 96/57 (70) 98 Room Air Physical Exam: GEN: frail, elderly, in slight distress holding her L knee and reporting pain, alert and appropriate. Generally has contractures of L sided extremities. HEENT: NC/AT, normal sclerae CARDIO: reg rate, S1/2 heard without m/g/r LUNGS: CTA bilaterally, no crackles, rales or wheezes, good diaphragmatic excursion ABD: soft, non-tender, non-distended, no rebound or guarding, +BS, no CVA tenderness. EXTREMITY: RP and DP palpable 2+ bilat, no LE swelling or edema, extremities are warm and well-perfused NEURO: CN 2-12 grossly intact MUSC: generally weak and contracted on the L side. Very difficult for her to move her extremities or move around in the bed on her own. SKIN: warm and dry, Stage II decub on heel. Small crusted lesion that is dry and non-draining on the L ankle. Some pink area surrounding. Laboratory Results: Last 24 Hours Test 04/18/17 07:51 White Blood Count 8.37 K/uL Red Blood Count 2.78 M/uL Hemoglobin 9.2 g/dL Hematocrit 27.1 % Mean Corpuscular Volume 97.5 fL Mean Corpuscular Hemoglobin 33.1 pg Mean Corpuscular Hemoglobin Concent 33.9 g/dl RDW Standard Deviation 52.0 fL RDW Coefficient of Variation 14.4 % Platelet Count 204 K/uL Mean Platelet Volume 9.0 fL Sodium Level 136 mmol/L Potassium Level 4.0 mmol/L Chloride Level 109 mmol/L Carbon Dioxide Level 20 mmol/L Anion Gap 7.0 mmol/L Blood Urea Nitrogen 27 mg/dl Creatinine 1.20 mg/dl Est Creatinine Clear Calc Drug Dose 24.2 ml/min Estimated GFR () 47.4 Estimated GFR (Non- 40.9 BUN/Creatinine Ratio 22.5 Random Glucose 71 mg/dl Calcium Level 7.4 mg/dl Assessment & Plan 86 yo F presented to ER via EMS after family had difficulty with her bring confused and combative at home in addition to noticing more weakness than usual. She had a stroke in the past with chronic L sided weakness and has limited mobility as a result. Her baseline is bedbound and she is able to perform transfers on her own only. She recently underwent two rounds of abx for 10 days at a time which ended recently; she simultaneously had issues with diarrhea off and on for about one week that was controlled with Imodium per daughter/javascript ui developer. She is noted to be on Cambria 5/325mg BID and chronic daily prednisone at home for pain control with severe OA. She also was recently diagnosed with an extensive DVT in the L leg for which she is on Xarelto and has almost completed her 3 month treatment. Venous doppler of the leg revealed no evidence of DVT on admission. She had some increased agitation overnight just after arriving to floor, but when Hedrick was placed she calmed down per nursing staff. They report she was having issues with urinary retention. The patient has a UTI. 1. Metabolic encephalopathy-multifactorial including UTI with urinary retention , DICKSON 2/2 dehydration from diarrhea, Cambria, steroid use, etc. CT head was nonacute and patient seems improved from a mental standpoint today. She is alert and following the conversation. Leg wound does not appear infected. DICKSON is improved to baseline, no diarrhea noted this admission. However, she has significant pain in her L knee presumably from OA for which daily prednisone, gabapentin and Cambria do not seem to be helping. Stopping Cambria at this time, starting scheduled Tylenol 1000mg q8hrs with Tramadol 50 q8h to get more in control of the pain. Gave some Miralax to help her continue to move her bowels in light of narcotics. 2. UTI-E coli and Klebsiella present in urine. Zosyn changed to Cipro PO 3. Acute urinary retention likely 2/2 UTI-cont Hedrick and after a few days of treatment of infection, attempt Hedrick trial. I would like to see her more clinically improved prior to removing. 4. L ankle wound-two rounds of abx as outpatient and no infection present at this time. Wound is closed and non-draining. Appreciate wound care consult for this and heel pressure ulcer that is more chronic. 5. Stage II heel ulcer-h/o stroke, turn [id number]. Wound care. Waffle boots are in place. 6. LLE DVT-on Xarelto, patient has leg pain and knee pain which may be related to thromboembolic disease, however, no residual major DVT was seen on admission doppler u/s. She also has severe OA for which she is on prednisone 5mg PO daily , Cambria and gabapentin. Finish 3 month Xarelto course. 7. Long-term steroid use-restarted prednisone held on admission to avoid adrenal insufficiency. consider stopping as outpatient as appears to have none to minimal benefit in controlling her pain. 8. OA-severe, plan as above. 9. DICKSON on CKD III-resolved to baseline. Likely related to recent diarrhea with diuretic use. Meds renally dosed and lis/HCTZ held. IVF. 10. h/o stroke with residual L sided weakness and decreased baseline functioning. PT/OT to evaluate. 11. PAF-rate controlled, sinus on EKG and on exam. Cont metoprolol and on Xarelto at this time 12. HTN-Lis/HCTZ held and amlodipine 5mg started, which was held after patient became hypotensive requiring fluids. No antihypertensives at this time. 13. Anemia-uncertain etiology, poss phlebotomy vs dilution from IVF. No indication for transfusion at this time. Will monitor. DVT Ppx: On Xarelto Code status: FULL PCP: Alirio Dispo: KB consulted to help with discharge placement. Lives with daughter but may require rehab/ permanent placement? after admission. PT/OT ordered for evaluation. Kimberly Silva DO [facility] Hospitalist Current Inpatient Medications: Current Inpatient Medications Medications (Trade) Dose Ordered Sig/Alicia Route Start Time Stop Time Status Last Admin Dose Admin Gabapentin (Neurontin Cap) 300 mg TID PO 04/16/17 14:00 05/16/17 13:59 04/18/17 13:49 300 MG Metoprolol Tartrate (Lopressor Tab) 25 mg BID PO 04/16/17 20:00 05/16/17 20:59 Future Hold 04/17/17 07:48 25 MG Pantoprazole Sodium (Protonix Tab) 40 mg QAM PO 04/17/17 08:00 05/17/17 08:59 04/18/17 09:21 40 MG Pravastatin Sodium (Pravachol Tab) 40 mg DAILY PO 04/17/17 08:00 05/17/17 08:59 04/18/17 09:21 40 MG Rivaroxaban (Xarelto Tab) 15 mg DAILY PO 04/17/17 08:00 05/17/17 08:59 04/18/17 09:21 15 MG Prednisone (PredniSONE TAB) 5 mg DAILY PO 04/18/17 08:00 05/18/17 07:59 04/18/17 09:21 5 MG Acetaminophen/ Hydrocodone Bitart (Cambria 5/325 Tab) 1 tab BID PO 04/17/17 20:00 04/30/17 21:59 04/18/17 04:18 1 TAB Ciprofloxacin (Cipro Tab) 500 mg BID PO 04/18/17 09:30 04/22/17 09:29 04/18/17 11:09 500 MG
[2017-04-19] MEDS: GABAPENTIN 300 MG CAP PO SCH ×3 (09:20→20:21)
[2017-04-19] MEDS: CIPROFLOXACIN 500 MG TAB PO SCH ×2 (09:20→20:21)
[2017-04-19] MEDS: PANTOprazole SOD 40 MG TAB PO SCH (09:20)
[2017-04-19] MEDS: RIVAROXABAN TAB 15 MG TAB PO SCH (09:20)
[2017-04-19] MEDS: PRAVASTATIN SOD 40 MG TAB PO SCH (09:20)
[2017-04-19 14:57] VITALS: BP 144/82; PULSE 106; TEMP 36.5; O2SAT 96
[2017-04-19 23:32] VITALS: BP 137/73; PULSE 117; TEMP 36.7; O2SAT 93
--- NOTE | 2017-04-20 00:08 | Progress Note ---
Medicine Progress Note Date & Time of Visit: Apr 19, 2017 at 14:19. Subjective tolerating PO had BM today states that her pain is well controlled on the Tylenol/Tramadol combination schedule-would continue with this and stop Bountiful. afebrile Feeling well Objective Last 8 Hrs Date Time Temp Pulse Resp B/P (MAP) Pulse Ox O2 Delivery O2 Flow Rate FiO2 04/19/17 07:55 Room Air 04/19/17 07:45 36.5 82 16 121/65 (83) 100 Room Air Physical Exam: GEN: frail, elderly, in slight distress holding her L knee and reporting pain, alert and appropriate. Generally has contractures of L sided extremities. HEENT: NC/AT, normal sclerae CARDIO: reg rate, S1/2 heard without m/g/r LUNGS: CTA bilaterally, no crackles, rales or wheezes, good diaphragmatic excursion ABD: soft, non-tender, non-distended, no rebound or guarding, +BS, no CVA tenderness. EXTREMITY: RP and DP palpable 2+ bilat, no LE swelling or edema, extremities are warm and well-perfused NEURO: CN 2-12 grossly intact MUSC: generally weak and contracted on the L side. Very difficult for her to move her extremities or move around in the bed on her own. SKIN: warm and dry, Stage II decub on heel. Small crusted lesion that is dry and non-draining on the L ankle. Some pink area surrounding. Assessment & Plan 86 yo F presented to ER via EMS after family had difficulty with her bring confused and combative at home in addition to noticing more weakness than usual. She had a stroke in the past with chronic L sided weakness and has limited mobility as a result. Her baseline is bedbound and she is able to perform transfers on her own only. She recently underwent two rounds of abx for 10 days at a time which ended recently; she simultaneously had issues with diarrhea off and on for about one week that was controlled with Imodium per daughter/crib tender. She is noted to be on Bountiful 5/325mg BID and chronic daily prednisone at home for pain control with severe OA. She also was recently diagnosed with an extensive DVT in the L leg for which she is on Xarelto and has almost completed her 3 month treatment. Venous doppler of the leg revealed no evidence of DVT on admission. She had some increased agitation overnight just after arriving to floor, but when Hedrick was placed she calmed down per nursing staff. They report she was having issues with urinary retention. The patient has a UTI. 1. Metabolic encephalopathy-multifactorial including UTI with urinary retention , DICKSON 2/2 dehydration from diarrhea, Bountiful, steroid use, etc. CT head was nonacute and patient seems improved from a mental standpoint today. She is alert and following the conversation. Leg wound does not appear infected. DICKSON is improved to baseline, no diarrhea noted this admission. However, she has significant pain in her L knee presumably from OA for which daily prednisone, gabapentin and Bountiful do not seem to be helping. Stopping Bountiful at this time, starting scheduled Tylenol 1000mg q8hrs with Tramadol 50 q8h to get more in control of the pain. Gave some Miralax to help her continue to move her bowels in light of narcotics. 2. UTI-E coli and Klebsiella present in urine. Zosyn changed to Cipro PO 3. Acute urinary retention likely 2/2 UTI-Hedrick removed on 04/20 4. L ankle wound-two rounds of abx as outpatient and no infection present at this time. Wound is closed and non-draining. Appreciate wound care consult for this and heel pressure ulcer that is more chronic. 5. Stage II heel ulcer-h/o stroke, turn [id number]. Wound care. Waffle boots are in place. 6. LLE DVT-on Xarelto, patient has leg pain and knee pain which may be related to thromboembolic disease, however, no residual major DVT was seen on admission doppler u/s. She also has severe OA for which she is on prednisone 5mg PO daily , Bountiful and gabapentin. Finish 3 month Xarelto course. 7. Long-term steroid use-restarted prednisone held on admission to avoid adrenal insufficiency. consider stopping as outpatient as appears to have none to minimal benefit in controlling her pain. 8. OA-severe, plan as above. She is out of pain today. 9. DICKSON on CKD III-resolved to baseline. Likely related to recent diarrhea with diuretic use. Meds renally dosed and lis/HCTZ held. IVF. 10. h/o stroke with residual L sided weakness and decreased baseline functioning. PT/OT to evaluate. 11. PAF-rate controlled, sinus on EKG and on exam. Cont metoprolol and on Xarelto at this time 12. HTN-Lis/HCTZ held and amlodipine 5mg started, which was held after patient became hypotensive requiring fluids. No antihypertensives at this time. 13. Anemia-uncertain etiology, poss phlebotomy vs dilution from IVF. No indication for transfusion at this time. Will monitor. DVT Ppx: On Xarelto Code status: FULL PCP: Alirio Dispo: SW consulted to help with discharge placement. Lives with daughter but may require rehab/ permanent placement? after admission. PT/OT ordered for evaluation and recommends 24/7 supervision or SNF. Will need to discuss with the daughter what she would like to do. Pt is currently against any rehab centers despite being bedbound. Appreciate CM assistance with this. Kimberly Silva DO [facility] Hospitalist Current Inpatient Medications: Current Inpatient Medications Medications (Trade) Dose Ordered Sig/Alicia Route Start Time Stop Time Status Last Admin Dose Admin Gabapentin (Neurontin Cap) 300 mg TID PO 04/16/17 14:00 05/16/17 13:59 04/19/17 13:57 300 MG Metoprolol Tartrate (Lopressor Tab) 25 mg BID PO 04/16/17 20:00 05/16/17 20:59 Future Hold 04/17/17 07:48 25 MG Pantoprazole Sodium (Protonix Tab) 40 mg QAM PO 04/17/17 08:00 05/17/17 08:59 04/19/17 09:20 40 MG Pravastatin Sodium (Pravachol Tab) 40 mg DAILY PO 04/17/17 08:00 05/17/17 08:59 04/19/17 09:20 40 MG Rivaroxaban (Xarelto Tab) 15 mg DAILY PO 04/17/17 08:00 05/17/17 08:59 04/19/17 09:20 15 MG Prednisone (PredniSONE TAB) 5 mg DAILY PO 04/18/17 08:00 05/18/17 07:59 04/19/17 09:20 5 MG Ciprofloxacin (Cipro Tab) 500 mg BID PO 04/18/17 09:30 04/22/17 09:29 04/19/17 09:20 500 MG Acetaminophen (Tylenol Tab) 1,000 mg Q8 PO 04/18/17 14:45 05/18/17 14:44 04/19/17 13:57 1,000 MG Tramadol HCl (Ultram Tab) 50 mg Q8H PO 04/18/17 14:45 04/19/17 14:44 04/19/17 06:26 50 MG Polyethylene (Miralax Powder Packet) 17 gm DAILY PO 04/19/17 09:00 05/19/17 08:59
[2017-04-20] MEDS: ACETAMINOPHEN 500 MG TAB PO SCH ×3 (06:23→20:20)
[2017-04-20 07:25] VITALS: BP 102/67; PULSE 127; TEMP 36.5; O2SAT 99
[2017-04-20] MEDS: POLYETHYLENE (MIRALAX) 17 GM PACK PO SCH (08:41)
[2017-04-20] MEDS: CIPROFLOXACIN 500 MG TAB PO SCH ×2 (08:43→20:20)
[2017-04-20] MEDS: PANTOprazole SOD 40 MG TAB PO SCH (08:43)
[2017-04-20] MEDS: RIVAROXABAN TAB 15 MG TAB PO SCH (08:43)
[2017-04-20] MEDS: PRAVASTATIN SOD 40 MG TAB PO SCH (08:43)
[2017-04-20] MEDS: GABAPENTIN 300 MG CAP PO SCH ×3 (08:43→20:20)
--- NOTE | 2017-04-20 10:56 | Progress Note ---
Subjective Date of Service: Apr 20, 2017. Subjective Pt evaluation today including: conversation w/ patient, physical exam, lab review, review of studies, review of inpatient medication list Saw/examined the patient in room 254 Family is in the room at bedside patient is seated in a chair conversing appropriately Problem List Medical Problems: (1) Acute renal failure Status: Acute (2) Cellulitis of left foot Status: Acute (3) Kidney disease Status: Chronic Review of Systems Cardiac: No chest pain All Other Systems: Reviewed and Negative Medications Current Inpatient Medications Medications (Trade) Dose Ordered Sig/Alicia Route Start Time Stop Time Status Last Admin Dose Admin Gabapentin (Neurontin Cap) 300 mg TID PO 04/16/17 14:00 05/16/17 13:59 04/20/17 08:43 300 MG Metoprolol Tartrate (Lopressor Tab) 25 mg BID PO 04/16/17 20:00 05/16/17 20:59 Future hold 04/17/17 07:48 25 MG Pantoprazole Sodium (Protonix Tab) 40 mg QAM PO 04/17/17 08:00 05/17/17 08:59 04/20/17 08:43 40 MG Pravastatin Sodium (Pravachol Tab) 40 mg DAILY PO 04/17/17 08:00 05/17/17 08:59 04/20/17 08:43 40 MG Rivaroxaban (Xarelto Tab) 15 mg DAILY PO 04/17/17 08:00 05/17/17 08:59 04/20/17 08:43 15 MG Prednisone (PredniSONE TAB) 5 mg DAILY PO 04/18/17 08:00 05/18/17 07:59 04/20/17 08:43 5 MG Ciprofloxacin (Cipro Tab) 500 mg BID PO 04/18/17 09:30 04/22/17 09:29 04/20/17 08:43 500 MG Acetaminophen (Tylenol Tab) 1,000 mg Q8 PO 04/18/17 14:45 05/18/17 14:44 04/20/17 06:23 1,000 MG Polyethylene (Miralax Powder Packet) 17 gm DAILY PO 04/19/17 09:00 05/19/17 08:59 Objective Vital Signs Date Time Temp Pulse Resp B/P (MAP) Pulse Ox O2 Delivery O2 Flow Rate FiO2 04/20/17 08:00 Room Air 04/20/17 07:25 36.5 127 18 102/67 (79) 99 Room Air 04/20/17 00:00 Room Air 04/19/17 23:32 36.7 117 18 137/73 (94) 93 Room Air 04/19/17 16:00 Room Air 04/19/17 14:57 36.5 106 18 144/82 (102) 96 Room Air Physical Exam General Appearance: no apparent distress, + pertinent finding (seated in a chair, no distress) Respiratory/Chest: lungs clear, normal breath sounds, no respiratory distress, no accessory muscle use Cardiovascular: regular rate, rhythm, no edema, no murmur Extremities: normal inspection, no pedal edema Neurologic/Psychiatric: alert, normal mood/affect, + motor weakness (chronic motor weakness, does not ambulate much at baseline) Assessment and Plan This is an 86 year old female with a PMH of L LE DVT, paroxysmal atrial fibrillation on long-term anticoagulation, HTN, HLD, CKD stage 3, anemia of chronic kidney disease presents with encephalopathy and altered mental status Metabolic Encephalopathy - improving secondary to UTI/Cellulitis and Dehydration multifactorial: UTI, cellulitis, uremia/dehydration patient presented with dehydrated; UTI Urine culture - Klebsiella and E. coli - pansensitive currently on Cipro Cellulitic changes of the LLE - improving was given IVFs, improved kidney function Acute Kidney Injury superimposed on CKD stage 3 secondary to Dehydration creat on admission = 2.0 improving to 1.2 no current IVFs running, encouraged PO intake and doing well Paroxysmal A. Fib rates are elevated slightly this morning restart Metoprolol, as blood pressures are improving currently on Xarelto, which we will continue L LE DVT Xarelto x3 months continue until outpatient PCP follow-up Anemia of Chronic Kidney Disease Hgb ~ 9.2 today (04/20) - monitor no need for transfusion currently HTN blood pressure improving can continue b-deb Gouty Arthritis continue prednisone DVT ppx Xarelto FULL CODE
[2017-04-20] MEDS ORDERED: TRAMADOL HCL 50 MG TAB PO PRN (14:45)
[2017-04-20 15:50] VITALS: BP 152/81; PULSE 111; TEMP 36.4; O2SAT 98
[2017-04-20] MEDS ORDERED: OXYCODONE/ACETAMINOPHEN 5-325 TAB PO PRN (19:45)
[2017-04-20] MEDS ORDERED: ONDANSETRON INJ 2 MG/ML 2 ML VIAL IV PRN (19:45)
[2017-04-20] MEDS: HYDROmorphone INJ 0.5 MG/0.5 ML SYR IV PRN (20:18)
[2017-04-20] MEDS: METOPROLOL TARTRATE 25 MG TAB PO SCH (20:20)
[2017-04-21] MEDS: ACETAMINOPHEN 500 MG TAB PO SCH (06:27)
[2017-04-21] MEDS: HYDROmorphone INJ 0.5 MG/0.5 ML SYR IV PRN (06:27)
[2017-04-21] MEDS: POLYETHYLENE (MIRALAX) 17 GM PACK PO SCH (07:23)
[2017-04-21 08:10] LABS: HEMATOCRIT 30.6 % (37-47); MEAN CORPUSCULAR HEMOGLOBIN 31.1 pg (25-34); MEAN CORPUSCULAR HGB CONC 31.4 g/dl (32-36); MEAN PLATELET VOLUME 8.6 fL (7.4-10.4); PLATELET COUNT 284 K/uL (130-400); RED BLOOD COUNT 3.09 M/uL (4.2-5.4); WHITE BLOOD COUNT 5.99 K/uL (4.8-10.8)
[2017-04-21 08:16] VITALS: BP 163/76; PULSE 93; TEMP 36.7; O2SAT 98
[2017-04-21 08:38] LABS: BUN/CREATININE RATIO 11.5 (10-20); CALCIUM 8.2 mg/dl (8.5-10.1); CREATININE 1.1 mg/dl (0.60-1.20)
[2017-04-21 08:45] VITALS: BP 159/82; PULSE 111
[2017-04-21] MEDS: GABAPENTIN 300 MG CAP PO SCH ×2 (08:48→13:31)
[2017-04-21] MEDS: CIPROFLOXACIN 500 MG TAB PO SCH (08:48)
[2017-04-21] MEDS: PANTOprazole SOD 40 MG TAB PO SCH (08:48)
[2017-04-21] MEDS: RIVAROXABAN TAB 15 MG TAB PO SCH (08:48)
[2017-04-21] MEDS: METOPROLOL TARTRATE 25 MG TAB PO SCH (08:49)
[2017-04-21] MEDS: PRAVASTATIN SOD 40 MG TAB PO SCH (09:08)
[2017-04-21] MEDS: TRAMADOL HCL 50 MG TAB PO PRN ×2 (09:12→12:59)
[2017-04-21] MEDS ORDERED: CPR500 PO (12:35)
--- NOTE | 2017-04-21 12:35 | Progress Note ---
Subjective Date of Service: Apr 21, 2017. Subjective Pt evaluation today including: conversation w/ patient, conversation w/ family , physical exam, lab review, review of studies, review of inpatient medication list Saw/examined the patient in room 254 She is doing okay, as per family; mentally back to baseline No other complaints; eager to go home Problem List Medical Problems: (1) Acute renal failure Status: Acute (2) Cellulitis of left foot Status: Acute (3) Kidney disease Status: Chronic Review of Systems Constitutional: No fever, No chills Respiratory: No shortness of breath Cardiac: No chest pain Abdomen: No pain, No nausea, No vomiting, No diarrhea Medications Current Inpatient Medications Medications (Trade) Dose Ordered Sig/Alicia Route Start Time Stop Time Status Last Admin Dose Admin Gabapentin (Neurontin Cap) 300 mg TID PO 04/16/17 14:00 05/16/17 13:59 04/21/17 08:48 300 MG Metoprolol Tartrate (Lopressor Tab) 25 mg BID PO 04/16/17 20:00 05/16/17 20:59 Future hold 04/21/17 08:49 25 MG Pantoprazole Sodium (Protonix Tab) 40 mg QAM PO 04/17/17 08:00 05/17/17 08:59 04/21/17 08:48 40 MG Pravastatin Sodium (Pravachol Tab) 40 mg DAILY PO 04/17/17 08:00 05/17/17 08:59 04/21/17 09:08 40 MG Rivaroxaban (Xarelto Tab) 15 mg DAILY PO 04/17/17 08:00 05/17/17 08:59 04/21/17 08:48 15 MG Prednisone (PredniSONE TAB) 5 mg DAILY PO 04/18/17 08:00 05/18/17 07:59 04/21/17 08:48 5 MG Ciprofloxacin (Cipro Tab) 500 mg BID PO 04/18/17 09:30 04/22/17 09:29 04/21/17 08:48 500 MG Acetaminophen (Tylenol Tab) 1,000 mg Q8 PO 04/18/17 14:45 05/18/17 14:44 04/21/17 06:27 1,000 MG Polyethylene (Miralax Powder Packet) 17 gm DAILY PO 04/19/17 09:00 05/19/17 08:59 Tramadol HCl (Ultram Tab) not relieved by tylenol @ Q6H PRN PO 04/20/17 19:45 05/20/17 19:44 04/21/17 09:12 50 MG Oxycodone/ Acetaminophen (Percocet 5-325mg Tab) 1 tab Q6H PRN PO 04/20/17 19:45 05/04/17 19:44 04/21/17 01:33 1 TAB Hydromorphone HCl (Dilaudid Inj) 0.5 mg Q3H PRN IV 04/20/17 19:45 05/04/17 19:44 04/21/17 06:27 0.5 MG Ondansetron HCl (Zofran Inj) 4 mg Q6H PRN IV 04/20/17 19:45 05/20/17 19:44 Objective Vital Signs Date Time Temp Pulse Resp B/P (MAP) Pulse Ox O2 Delivery O2 Flow Rate FiO2 04/21/17 08:45 111 159/82 (107) 04/21/17 08:16 36.7 93 18 163/76 (105) 98 Room Air 04/21/17 08:00 Room Air 04/21/17 00:00 Room Air 04/20/17 20:00 Room Air 04/20/17 16:00 Room Air 04/20/17 15:50 36.4 111 18 152/81 (104) 98 Room Air Physical Exam General Appearance: no apparent distress Respiratory/Chest: no respiratory distress, no accessory muscle use Cardiovascular: no edema, no murmur, + tachycardia Extremities: normal inspection, no pedal edema Laboratory Results Last 24 Hours Test 04/21/17 07:34 White Blood Count 5.99 K/uL Red Blood Count 3.09 M/uL Hemoglobin 9.6 g/dL Hematocrit 30.6 % Mean Corpuscular Volume 99.0 fL Mean Corpuscular Hemoglobin 31.1 pg Mean Corpuscular Hemoglobin Concent 31.4 g/dl RDW Standard Deviation 53.5 fL RDW Coefficient of Variation 14.8 % Platelet Count 284 K/uL Mean Platelet Volume 8.6 fL Sodium Level 139 mmol/L Potassium Level 4.0 mmol/L Chloride Level 109 mmol/L Carbon Dioxide Level 24 mmol/L Anion Gap 6.0 mmol/L Blood Urea Nitrogen 13 mg/dl Creatinine 1.10 mg/dl Est Creatinine Clear Calc Drug Dose 26.4 ml/min Estimated GFR () 52.6 Estimated GFR (Non- 45.4 BUN/Creatinine Ratio 11.5 Random Glucose 71 mg/dl Calcium Level 8.2 mg/dl Assessment and Plan This is an 86 year old female with a PMH of L LE DVT, paroxysmal atrial fibrillation on long-term anticoagulation, HTN, HLD, CKD stage 3, anemia of chronic kidney disease presents with encephalopathy and altered mental status Metabolic Encephalopathy - improving secondary to UTI/Cellulitis and Dehydration 04/21 doing better today; plan is to d/c home with home health will d/c with Cipro x 4 days outpatient PCP follow-up 04/20 multifactorial: UTI, cellulitis, uremia/dehydration patient presented with dehydrated; UTI Urine culture - Klebsiella and E. coli - pansensitive currently on Cipro Cellulitic changes of the LLE - improving was given IVFs, improved kidney function Acute Kidney Injury superimposed on CKD stage 3 secondary to Dehydration 04/21 creatinine at around 1.1 good PO intake 04/20 creat on admission = 2.0 improving to 1.2 no current IVFs running, encouraged PO intake and doing well Paroxysmal A. Fib rates are elevated slightly this morning restart Metoprolol, as blood pressures are improving currently on Xarelto, which we will continue L LE DVT Xarelto x3 months continue until outpatient PCP follow-up Anemia of Chronic Kidney Disease Hgb ~ 9.2 today (04/20) - monitor no need for transfusion currently HTN blood pressure improving can continue b-deb Gouty Arthritis continue prednisone DVT ppx Xarelto FULL CODE
--- NOTE | 2017-04-21 12:37 | Discharge Instructions ---
Discharge Instructions Date of Service Apr 21, 2017. Admission Reason for Admission: Cellulitis Of Left Foot, Cva, Kidney Disease Discharge Discharge Diagnosis / Problem: Cellulitis of the L foot, Urinary tract infection, dehydration Discharge Goals Goal(s): Decrease discomfort, Improve function, Diagnostic testing, Therapeutic intervention Activity Recommendations Activity Limitations: resume your previous activity . Instructions / Follow-Up Instructions / Follow-Up Please follow-up with Dr. Diaz on April 28 at 12:45PM (your appointment for April 22 is canceled) * You will be discharged on Cipro twice a day for four days (antibiotic) * Continue taking Xarelto for now until it is okay with your primary care physician to stop Current Hospital Diet Patient's current hospital diet: Regular Diet Discharge Diet Recommended Diet: Regular Diet Pending Studies Studies pending at discharge: no Medical Emergencies . Who to Call and When: Medical Emergencies: If at any time you feel your situation is an emergency, please call 911 immediately. . Non-Emergent Contact Non-Emergency issues call your: Primary Care Provider . . "Provider Documentation" section prepared by Lakeshia Gracia. . VTE Core Measure Inpt VTE Proph given/why not?: Other Anticoagulation (Xarelto)
--- NOTE | 2017-04-21 12:45 | Discharge Summary ---
Discharge Summary Date of Service Apr 21, 2017. Discharge Summary Admission Date: Apr 16, 2017 at 12:57 Discharge Date: Apr 21, 2017 Discharge Disposition: Home with services Principal Diagnosis: L foot cellulitis Urinary Tract infection Acute Kidney Injury superimposed on CKD stage 3 Medication Reconciliation New Medications: Ciprofloxacin (Ciprofloxacin HCl) 500 Mg Tab 500 MG PO BID for 4 Days, #8 TAB Continued Medications: Allopurinol (Zyloprim) 100 Mg Tab 100 MG PO QAM, TAB Calcium Carbonate-Cholecalcife (Caltrate 600+D) 1 Tab Tab 1 TAB PO BID Ferrous Sulfate (Iron) 325 Mg Tab 325 MG PO BID Gabapentin (Neurontin) 300 Mg Cap 300 MG PO TID, CAP Hctz/Lisinopril (Lisinopril/Hctz 20/25 Mg) 1 Ea Tab 1 TAB PO QAM, TAB Hydrocodone/Acetaminophen 5MG/325MG ([place] 5MG/325MG) Tab 1 TABLET PO Q6H PRN for Pain, TAB PRN PAIN Metoprolol Tartrate (Lopressor) (Lopressor) 25 Mg Tab 25 MG PO BID, TAB Pantoprazole (Protonix) 40 Mg Tab 40 MG PO QAM, #30 TAB Polyethylene Glycol-Propylene (Systane) 1 Thi Thi 1 DROPS OPB DAILY PRN for DRYNESS, #30 ML 6 Refills Pravastatin Sod (Pravastatin Sodium) 40 Mg Tab 40 MG PO DAILY Prednisone (Prednisone) 5 Mg Tab 5 MG PO DAILY, TAB Rivaroxaban (Xarelto) 15 Mg Tab 15 MG PO DAILY, TAB TAKE 15MG DAILY TILL GONE Admission Information HPI (per Admitting provider): This is an 86yo F with a PMH of L lower extremity DVT, paroxysmal A fib, CKD III , HTN who presents with confusion and increased agitation at night over the past week. Patient lives with her daughter, who reports that patient has become combative and agitated at night. Family has also noticed patient become increasingly confused about short terms events and her location over the past few days. In February, patient was diagnosed with an extensive L DVT at an outside hospital and was discharged on Xarelto. Was originally taking 15mg BID for the first three weeks but dose has since been decreased to 15mg daily. Over the past few days, family has noticed her L LE, specifically around the lateral ankle, becoming red and swollen. Patient has also become increasingly fatigued. Patient was confused and lethargic on exam, resulting in a limited ROS. Endorsed pain in L LE as well as mild, diffuse abdominal pain. Denies fever, chills, CP, SOB, nausea/vomiting, urinary symptoms. 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 Physical Exam (per Admitting): General Appearance: WD/WN (Patient sleeping during exam but arousable to questions. Limited mobility 2/2 chronic L sided weakness ), + mild distress Head: normocephalic, atraumatic Eyes: normal inspection, sclerae normal ENT: hearing grossly normal Neck: supple, no adenopathy, trachea midline Respiratory/Chest: chest non-tender, lungs clear, normal breath sounds, no respiratory distress, no accessory muscle use Cardiovascular: regular rate, rhythm, no murmur Abdomen/GI: normal bowel sounds, non tender, soft, no organomegaly Back: normal inspection Extremities/Musculoskelatal: no calf tenderness, no pedal edema (Some breakdown noted on L heel that has been present for years, per daughter. No drainage, swelling, etc.), + pertinent finding (L lateral ankle with erythema, minimal swelling and a few small areas of skin breakdown. No warmth to touch or visbale drainage.) Neurologic/Psych: alert (Oriented to person and sitatuion, but not to time or place), + motor weakness (Chronic L sided weakness. Unable to fully assess due to pt with AMS ) Skin: normal color, warm/dry Hospital Course This is an 86 year old female with a PMH of L LE DVT, paroxysmal atrial fibrillation on long-term anticoagulation, HTN, HLD, CKD stage 3, anemia of chronic kidney disease presents with encephalopathy and altered mental status Metabolic Encephalopathy - improving secondary to UTI/Cellulitis and Dehydration 04/21 doing better today; plan is to d/c home with home health will d/c with Cipro x 4 days outpatient PCP follow-up 04/20 multifactorial: UTI, cellulitis, uremia/dehydration patient presented with dehydrated; UTI Urine culture - Klebsiella and E. coli - pansensitive currently on Cipro Cellulitic changes of the LLE - improving was given IVFs, improved kidney function Acute Kidney Injury superimposed on CKD stage 3 secondary to Dehydration 04/21 creatinine at around 1.1 good PO intake 04/20 creat on admission = 2.0 improving to 1.2 no current IVFs running, encouraged PO intake and doing well Paroxysmal A. Fib rates are elevated slightly this morning restart Metoprolol, as blood pressures are improving currently on Xarelto, which we will continue L LE DVT Xarelto x3 months continue until outpatient PCP follow-up Anemia of Chronic Kidney Disease Hgb ~ 9.2 today (04/20) - monitor no need for transfusion currently HTN blood pressure improving can continue b-deb Gouty Arthritis continue prednisone DVT ppx Xarelto FULL CODE Total time spent on discharge = 40 minutes This includes examination of the patient, discharge planning, medication reconciliation, and communication with other providers. Discharge Instructions Please follow-up with Dr. Diaz on April 28 at 12:45PM (your appointment for April 22 is canceled) * You will be discharged on Cipro twice a day for four days (antibiotic) * Continue taking Xarelto for now until it is okay with your primary care physician to stop
[2017-04-21] MEDS ORDERED: NURSING VERBAL MED ORDER ONE (13:00)
[2017-04-21 13:14] VITALS: BP 159/82; PULSE 111; TEMP 36.7; O2SAT 98
[2017-04-21] MEDS ORDERED: TRAMADOL HCL 50 MG TAB PO ONE (13:15)
== END 2017-04-21 13:35 | disposition home health service (06) | DRG 602 ==
LOC: EDBD 09:51 → C.EDB 09:53 → C.4E 12:57 → ENRESERV 13:18 → C.MS2W 04-17 22:27
PROVIDERS: ADMIT Hospitalist; ATTEND Family Medicine
DX: L03.116 Cellulitis of left lower limb (principal); G93.41 Metabolic encephalopathy; N39.0 Urinary tract infection, site not specified; N17.9 Acute kidney failure, unspecified; I69.354 Hemiplegia and hemiparesis following cerebral infarction affecting left non-dominant side; E86.0 Dehydration; B96.20 Unspecified Escherichia coli [E. coli] as the cause of diseases classified elsewhere; B96.1 Klebsiella pneumoniae [K. pneumoniae] as the cause of diseases classified elsewhere; E83.42 Hypomagnesemia; L89.622 Pressure ulcer of left heel, stage 2; R33.8 Other retention of urine; N18.3 Chronic kidney disease, stage 3 (moderate); I48.0 Paroxysmal atrial fibrillation; M19.90 Unspecified osteoarthritis, unspecified site; I13.10 Hypertensive heart and chronic kidney disease without heart failure, with stage 1 through stage 4 chronic kidney disease, or unspecified chronic kidney disease; D63.1 Anemia in chronic kidney disease; M10.9 Gout, unspecified; Z51.81 Encounter for therapeutic drug level monitoring; Z79.899 Other long term (current) drug therapy; Z79.01 Long term (current) use of anticoagulants; Z79.52 Long term (current) use of systemic steroids; Z86.718 Personal history of other venous thrombosis and embolism; Z83.3 Family history of diabetes mellitus; Z82.49 Family history of ischemic heart disease and other diseases of the circulatory system; Z84.1 Family history of disorders of kidney and ureter

== ENCOUNTER 2017-10-19 11:15 | Inpatient (IN) | payer OTHER ==
[~2017-10-19] VITALS: Ht 157.5 cm; Wt 60.1 kg
[~2017-10-19 11:15] MED LIST changes: -ACET1SUP84 PO; -CALC-220 PO; +CALC-354 PO; -CEPH500C PO; +CPR500 PO; +GABA-113 PO; -GABA10PO PO; +HYDR-5688 PO; -MELA1TAB4 PO; +POLYSOL4 OPB; +PRED-301 PO; -PRT40 PO; +RIVA1.5T PO; -SENN1TAB65 PO; -TRAM-10 PO; -ULT50X PO
[2017-10-19] MEDS ORDERED: ACET-1256 PO (11:47)
[2017-10-19] MEDS ORDERED: SODIUM CHLORIDE 0.9% 1000ML 500 ML IV STA ×2 (12:09→14:02)
--- NOTE | 2017-10-19 13:18 | EMERGENCY ROOM VISIT NOTE ---
History Report prepared by Portia: Lance Lino Under the Supervision of: Dr. Edmar Garcia M.D. First contact with patient: 11:59 Chief Complaint: ILLNESS Stated Complaint: ILLNESS History of Present Illness The patient is a 87 year old female who presents to the Emergency Room by EMS with complaints of persistent generalized illness beginning eight hours ago. Her symptoms include generalized weakness, diarrhea, and vomiting. Patient has taken Pepto Bismol for her symptoms. She was given IV fluids en route which appears to have improved her symptoms. Per family, the patient has had no blood in her stool, or fevers. She notes that the patient was able to eat breakfast today after her symptoms began. The patient denies chest pain, SOB, cough, abdominal pain, urinary symptoms, or headache. She has a history of chronic joint pain secondary to arthritis, and states that this is unchanged from her normal. She is not currently on blood thinners. Source of History: patient Onset: Eight hours ago Position: other (generalized) Quality: other (illness) Timing: other (persistent) Modifying Factors (Relieving): other (IV fluids) Associated Symptoms: + vomiting, + diarrhea, + weakness (generalized), No fevers, No headache, No cough, No chest pain, No SOB, No abdominal pain, No hematochezia, No urinary symptoms Review of Systems See HPI for pertinent positives & negatives. A total of 10 systems reviewed and were otherwise negative. Past Medical & Surgical Medical Problems: (1) Arthritis (2) Colon cancer (3) H/O: CVA (cerebrovascular accident) (4) HTN (hypertension) (5) Kidney disease (6) Left leg DVT (7) Macular degeneration (8) Paroxysmal atrial fibrillation Old medical records were reviewed. Nurse's notes were reviewed and I agree with. Family History Diabetes mellitus Hypertension Kidney disease Kidney stones Social History Smoking Status: Unknown if Ever Smoked Alcohol Use: none Drug Use: none Marital Status: Housing Status: lives with family Occupation Status: retired Current/Historical Medications Scheduled Allopurinol (Zyloprim), 100 MG PO QAM Calcium Carbonate-Cholecalcife (Caltrate 600+D), 1 TAB PO BID Ferrous Sulfate (Iron), 325 MG PO BID Gabapentin (Neurontin), 300 MG PO TID Hctz/Lisinopril (Lisinopril/Hctz 20/25 Mg), 1 TAB PO QAM Metoprolol Tartrate (Metoprolol Tartrate), 50 MG PO BID Pantoprazole (Protonix), 40 MG PO QAM Pravastatin Sod (Pravastatin Sodium), 40 MG PO DAILY Prednisone (Prednisone), 10 MG PO DAILY Scheduled PRN Acetaminophen (Tylenol), 500 MG PO Q8 PRN for Pain Hydrocodone/Acetaminophen 5MG/325MG ([place] 5MG/325MG), 1 TABLET PO Q6H PRN for Pain Polyethylene Glycol-Propylene (Systane), 1 DROPS OPB DAILY PRN for DRYNESS Allergies Coded Allergies: Horse-derived Products (Verified Allergy, Unknown, Tetanus - with horse serum (equine), 10/19/17) NO KNOWN DRUG ALLERGIES (Verified Allergy, Unknown, ., 10/19/17) Physical Exam Vital Signs Date Time Temp Pulse Resp B/P (MAP) Pulse Ox O2 Delivery O2 Flow Rate FiO2 10/19/17 16:12 81 16 120/68 96 Room Air 10/19/17 14:32 79 20 101/57 96 Room Air 10/19/17 14:08 77 18 91/56 96 Room Air 10/19/17 13:00 75 20 88/47 95 Room Air 10/19/17 11:54 77 10/19/17 11:17 37.3 80 20 108/57 94 Room Air Physical Exam General: Non-ill appearing older female in no acute distress. HEENT: Normal cephalic atraumatic. Pupils are equal round and reactive to light. Extraocular movements are intact. Oropharynx is pink with moist mucous membranes. No swelling of the mouth lips or tongue. Neck: Supple with a midline trachea. No meningeal signs or stiffness, no JVD or bruits. No Stridor. Chest: Clear to auscultation bilaterally. No wheezes or rhonchi. No increased work of breathing. Heart: regular rate and rhythm. Abdomen: Soft nontender, nondistended without rebound guarding or rigidity. Extremities: No cyanosis clubbing or edema. No calf tenderness or assymetry. Healed ulcer on the left heel. Spine/Back. Non tender to palpation. No CVA tenderness Skin: Good turgor without rashes. Neurologic exam: Cranial nerves two through 12 are intact. Baseline weakness of the left arm and contracture of left leg. Medical Decision & Procedures Laboratory Results 2/27/18 13:46 Red Blood Count 3.46, Mean Corpuscular Volume 94.2, Mean Corpuscular Hemoglobin 31.8, Mean Corpuscular Hemoglobin Concent 33.7, Mean Platelet Volume 9.6, Neutrophils (%) (Auto) 86.0, Lymphocytes (%) (Auto) 5.0, Monocytes (%) (Auto) 7.3, Eosinophils (%) (Auto) 0.0, Basophils (%) (Auto) 0.2, Neutrophils # (Auto) 20.76, Lymphocytes # (Auto) 1.20, Monocytes # (Auto) 1.76, Eosinophils # (Auto) 0.01, Basophils # (Auto) 0.04 10/19/17 12:44 Test 10/19/17 12:44 10/19/17 13:46 10/19/17 15:21 Anion Gap 8.0 mmol/L (3-11) Est Creatinine Clear Calc Drug Dose 19.7 ml/min Estimated GFR () 33.5 Estimated GFR (Non- 28.9 BUN/Creatinine Ratio 20.7 (10-20) Calcium Level 8.5 mg/dl (8.5-10.1) Total Bilirubin 0.4 mg/dl (0.2-1) Direct Bilirubin < 0.1 mg/dl (0-0.2) Aspartate Amino Transf (AST/SGOT) 14 U/L (15-37) Alanine Aminotransferase (ALT/SGPT) 12 U/L (12-78) Alkaline Phosphatase 50 U/L (45-117) Troponin I 0.051 ng/ml (0-0.045) Total Protein 5.3 gm/dl (6.4-8.2) Albumin 2.7 gm/dl (3.4-5.0) Lipase 107 U/L (73-393) White Blood Count 24.12 K/uL (4.8-10.8) Red Blood Count 3.46 M/uL (4.2-5.4) Hemoglobin 11.0 g/dL (12.0-16.0) Hematocrit 32.6 % (37-47) Mean Corpuscular Volume 94.2 fL (80-100) Mean Corpuscular Hemoglobin 31.8 pg (25-34) Mean Corpuscular Hemoglobin Concent 33.7 g/dl (32-36) Platelet Count 134 K/uL (130-400) Mean Platelet Volume 9.6 fL (7.4-10.4) Neutrophils (%) (Auto) 86.0 % Lymphocytes (%) (Auto) 5.0 % Monocytes (%) (Auto) 7.3 % Eosinophils (%) (Auto) 0.0 % Basophils (%) (Auto) 0.2 % Neutrophils # (Auto) 20.76 K/uL (1.4-6.5) Lymphocytes # (Auto) 1.20 K/uL (1.2-3.4) Monocytes # (Auto) 1.76 K/uL (0.11-0.59) Eosinophils # (Auto) 0.01 K/uL (0-0.5) Basophils # (Auto) 0.04 K/uL (0-0.2) RDW Standard Deviation 52.2 fL (36.4-46.3) RDW Coefficient of Variation 15.2 % (11.5-14.5) Immature Granulocyte % (Auto) 1.5 % Immature Granulocyte # (Auto) 0.35 K/uL (0.00-0.02) Toxic Vacuolation 1+ Urine Color YELLOW Urine Appearance CLOUDY (CLEAR) Urine pH 5.0 (4.5-7.5) Urine Specific [place] 1.015 (1.000-1.030) Urine Protein NEG (NEG) Urine Glucose (UA) NEG (NEG) Urine Ketones NEG (NEG) Urine Occult Blood NEG (NEG) Urine Nitrite POS (NEG) Urine Bilirubin NEG (NEG) Urine Urobilinogen NEG (NEG) Urine Leukocyte Esterase SMALL (NEG) Urine WBC (Auto) 10-30 /hpf (0-5) Urine RBC (Auto) 0-4 /hpf (0-4) Urine Hyaline Casts (Auto) 1-5 /lpf (0-5) Urine Epithelial Cells (Auto) >30 /lpf (0-5) Urine Bacteria (Auto) 2+ (NEG) Laboratory studies as stated above per my review. Medications Administered Medications (Trade) Dose Ordered Sig/Alicia Route Start Time Stop Time Status Last Admin Dose Admin Sodium Chloride 500 ml @ 999 mls/hr Q31M STAT IV 10/19/17 12:09 10/19/17 12:39 DC 10/19/17 12:55 999 MLS/HR Sodium Chloride 500 ml @ 999 mls/hr Q31M STAT IV 10/19/17 14:02 10/19/17 14:32 DC 10/19/17 14:02 999 MLS/HR Piperacillin Sod/ Tazobactam Sod 3.375 gm/Dextrose 115 ml @ 230 mls/hr NOW ONCE IV 10/19/17 14:30 10/19/17 14:59 DC 10/19/17 15:18 230 MLS/HR Vancomycin HCl 1250 mg/Sodium Chloride 275 ml @ 125 mls/hr NOW ONCE IV 10/19/17 14:45 10/19/17 16:56 DC 10/19/17 15:52 125 MLS/HR ECG Per My Interpretation Indication: weakness Rate (beats per minute): 73 Rhythm: normal sinus Findings: other (LVH. Poor baseline. T-wave abnormalities inferior and lateral. ) Comparison ECG Date: April 16, 2015 Change: no significant change ED Course 1200: Past medical records reviewed. The patient was evaluated in room B2, and a complete history and physical examination were performed. 1209: Ordered Sodium Chloride 500 ml @ 999 mls/hr IV. 1305: I reassessed the patient. She appears comfortable and in no distress. She has just had blood work. 1402: Ordered Sodium Chloride 500 ml @ 999 mls/hr IV. 1400: Upon reevaluation, the patient is resting comfortably and is non-ill appearing. I discussed the results and treatment plan with the patient. She verbalized agreement of the treatment plan. The patient will be evaluated for further management. 1430: I checked in on the patient. She appears comfortable. She denies any abdominal pain. The patient's systolic blood pressure is in the 90's. Medical Decision Differentials include, but are not limited to; dehydration, gastroenteritis, cardiac disease, sepsis, and electrolyte or metabolic abnormality. This patient comes in as described above. She was placed in room B2. She's had nausea vomiting diarrhea since last evening she received 800 mL of IV normal saline prior arrival is feeling better. She was normotensive upon arrival. IV access had been established and blood testing was obtained also chest x-ray and EKG. She's had no fever. She's had no blood in her stool. She has no significant complaints specifically she has no abdominal pain or urinary symptoms. Extensive workup was done. EKG does not suggest acute coronary syndrome or arrhythmia. Her troponin is minimally elevated 0.05 her BUN and creatinine are also moderately elevated and this could be relation hydration status. Her white count came back significantly elevated at 24,000. Lactic acid is mildly elevated 2.5. She received additional IV fluids here and received another liter which put her over 30 mL/kg IV in the ER. She was reassessed frequently. Her blood pressure did seem to drop into the 80s and it did seem to respond to fluids and came up into the 90s but was still a little on the low side. I did a CAT scan of her abdomen there is no obstruction. She does apparently have a pneumonia. Her urinalysis on a cath specimen also suggest a UTI. She was given broad-spectrum IV antibiotics for presumed sepsis with IV Zosyn and IV vancomycin. This was done in consultation with her eating pharmacist. I have consulted Dr. Marcelino as I do think she needs to be admitted for further treatment and evaluation Medication Reconcilliation Current Medication List: was personally reviewed by me Blood Pressure Screening Patient's blood pressure: Normal blood pressure Blood pressure disposition: Did not require urgent referral Consults Time Called: 1400 Consulting Physician: Dr. Marcelino [facility] Hospitalist Returned Call: [phone] Discussed the patient's case. The patient will be evaluated for further management. Impression Primary Impression: Sepsis Additional Impressions: Dehydration Hypotension Critical Care I have personally spent greater than 35 minutes of critical care time in the direct management of this patient. This includes bedside care, interpretation of diagnostic studies, and testing, discussion with consultants, patient, and family members, and other required patient management activities. This 30 minutes is in excess of all separately billable procedures. Scribe Attestation The scribe's documentation has been prepared under my direction and personally reviewed by me in its entirety. I confirm that the note above accurately reflects all work, treatment, procedures, and medical decision making performed by me. Departure Information Dispostion Being Evaluated By Hospitalist Referrals Santi Diaz M.D. (PCP) Patient Instructions [facility] Problem Qualifiers
[2017-10-19 13:31] LABS: ALBUMIN 2.7 gm/dl (3.4-5.0); BLOOD UREA NITROGEN 33 mg/dl (7-18); CALCIUM 8.5 mg/dl (8.5-10.1); CARBON DIOXIDE 24 mmol/L (21-32); GLUCOSE 79 mg/dl (70-99); LIPASE 107 U/L (73-393); SODIUM 135 mmol/L (136-145)
[2017-10-19 13:39] LABS: ALT/SGPT 12 U/L (12-78); CREATININE 1.59 mg/dl (0.60-1.20); POTASSIUM 4.1 mmol/L (3.5-5.1)
[2017-10-19 13:41] LABS: AST/SGOT 14 U/L (15-37)
[2017-10-19 13:48] LABS: ALKALINE PHOSPHATASE 50 U/L (45-117); TOTAL PROTEIN 5.3 gm/dl (6.4-8.2)
[2017-10-19 14:00] LABS: HEMATOCRIT 32.6 % (37-47); MEAN CELL VOLUME 94.2 fL (80-100); MEAN CORPUSCULAR HEMOGLOBIN 31.8 pg (25-34); MEAN CORPUSCULAR HGB CONC 33.7 g/dl (32-36); MEAN PLATELET VOLUME 9.6 fL (7.4-10.4); PLATELET COUNT 134 K/uL (130-400); RED CELL DISTRIBUTION WIDTH CV 15.2 % (11.5-14.5); RED CELL DISTRIBUTION WIDTH SD 52.2 fL (36.4-46.3); WHITE BLOOD COUNT 24.12 K/uL (4.8-10.8)
[2017-10-19 14:19] LABS: BASO % 0.2 %; BASO ABS # 0.04 K/uL (0-0.2); EOS ABS # 0.01 K/uL (0-0.5); IG# 0.35 K/uL (0.00-0.02); MONO % 7.3 %; MONO ABS # 1.76 K/uL (0.11-0.59); NEUT ABS # 20.76 K/uL (1.4-6.5)
--- NOTE | 2017-10-19 14:22 | DIAGNOSTIC IMAGING REPORT ---
CHEST ONE VIEW PORTABLE HISTORY: 87 years-old Female CHEST PAIN acute atypical chest pain. COMPARISON: Chest radiograph 04/16/2017 TECHNIQUE: Portable AP view of the chest FINDINGS: Cardiac silhouette is again enlarged, unchanged. The patient is slightly rotated to the left. There is atherosclerosis of the aorta. There is mild pulmonary vascular congestion without overt pulmonary edema. There is no pneumothorax or large pleural effusion. There are hazy subsegmental left basilar opacities noted. The bones of the chest appear grossly intact. Osteoporotic appearance of the bones noted with severe degenerative changes of the spine and shoulders. IMPRESSION: 1. Cardiomegaly and mild pulmonary vascular congestion without overt pulmonary edema. 2. Subsegmental left basilar opacities favor atelectasis. The above report was generated using voice recognition software. It may contain grammatical, syntax or spelling errors. Electronically signed by: Joe Soriano M.D. 10/19/2017 2:21 PM Dictated Date/Time: 10/19/2017 2:19 PM
[2017-10-19] MEDS ORDERED: PIPERACILL/TAZOBAC IV 3.375 GM in DEXTROSE 5% 100ML IV ONE (14:30)
[2017-10-19] MEDS ORDERED: VANCOMYCIN IV 1,250 MG in SODIUM CHLORIDE 0.9% 250ML 250 ML IV ONE (14:45)
--- NOTE | 2017-10-19 15:00 | DIAGNOSTIC IMAGING REPORT ---
ABD/PELVIS NO IV OR ORAL CONT CLINICAL HISTORY: 87 years-old Female presenting with eval for infection, diarrhea and vomiting. TECHNIQUE: Multidetector CT of the abdomen and pelvis was performed without the use of intravenous contrast. IV contrast: None. A dose lowering technique was used consistent with the principles of ALARA (as low as reasonably achievable). COMPARISON: 11/30/2014. CT DOSE (mGy.cm): The estimated cumulative dose is 416.45 mGy.cm. FINDINGS: Conciliator topogram: Splenic arterial calcification. Lung bases: Interval increase in peribronchovascular consolidation in the left lower lobe, which is extensive. Less extensive patchy groundglass opacities in the right lower lobe. Bronchial wall thickening. Multichamber enlargement of the heart. Coronary artery calcification. No pericardial or pleural effusion. Liver: Normal morphology. No liver lesion. Patent hepatic vasculature. Biliary: Mild biliary ductal prominence suggested allowing for noncontrast technique. Physiologic distention of the normal-appearing gallbladder. Pancreas: Moderate parenchymal atrophy. Spleen: Normal. Adrenal glands: Normal. Kidneys and ureters: Normal noncontrast appearance of the kidneys. Extensive renal vascular calcification. Extrarenal pelvises bilaterally. No hydronephrosis. No nephrolithiasis. Ureters normal. Bladder: Normal. Pelvic organs: Normal noncontrast appearance. Bowel: Anastomotic suture line noted in the mid rectum. This is unchanged from prior exam and likely implies prior partial sigmoidectomy. Fluid noted in the right and transverse colon consistent with a diarrheal state. No bowel obstruction. Appendix not visualized. Prominent duodenal diverticulum posterior to the superior mesenteric artery. Peritoneal cavity: No free fluid or intraperitoneal gas. Lymph nodes: No gross lymphadenopathy allowing for noncontrast technique. Vasculature: Extensive atherosclerosis. Slight tortuosity or ectasia of the infrarenal abdominal aorta. Abdominal wall: Diastasis of the rectus abdominis. Musculoskeletal: Degenerative changes of the spine. Severe degenerative changes of the bilateral hip joints and muscular atrophy in the pelvis likely from chronic contractures. Osteopenia. Chronic fracture of the left sixth rib. Few old healed fracture deformities and other ribs also noted. Compression deformities of several vertebral bodies, including L4, L1, T12 and T8. IMPRESSION: 1. Extensive peribronchovascular consolidation in the left lower lobe consistent with pneumonia. 2. Fluid in the colon suggests a diarrheal state. No evidence to suggest severe colitis. No free air for bowel obstruction. 3. Osteopenia with multiple compression deformities which are fairly similar to the prior exam 2014. 4. Postsurgical changes of partial sigmoidectomy with rectal anastomosis. Electronically signed by: Vel Gallardo M.D. 10/19/2017 2:58 PM Dictated Date/Time: 10/19/2017 2:48 PM
[2017-10-19] MEDS ORDERED: ONDANSETRON INJ 2 MG/ML 2 ML VIAL IV PRN (16:30)
[2017-10-19] MEDS ORDERED: ACETAMINOPHEN 325 MG TAB PO PRN (16:30)
[2017-10-19] MEDS ORDERED: LPR50X PO (16:32)
--- NOTE | 2017-10-19 16:37 | History and Physical ---
History & Physical Date & Time of Service: Oct 19, 2017 at 16:36 . Chief Complaint: Nausea, vomiting, diarrhea, weakness . Primary Care Physician: Santi Diaz M.D. . History of Present Illness Source: patient, clinic records, hospital records 87-year-old female followed by Dr. Amezquita. History of paroxysmal atrial fibrillation, cerebrovascular disease, DVT, and other problems as noted below. She is bed-chair bound due to history of stroke and arthritis. Lives at home, cared for by her family. She has had a mild cough for about a week, but did not feel ill. This morning she experienced nausea, vomiting, diarrhea. No associated hematemesis, melena, hematochezia, abdominal pain. No fever, chills, sweats. Brought to the ED for evaluation. Found to be hypertensive and received fluid resuscitation with improvement of blood pressures. . Past Medical/Surgical History Chronic Medical Problems: (1) Arthritis Status: Chronic (2) Chronic kidney disease (CKD), stage III (moderate) Status: Chronic (3) H/O: CVA (cerebrovascular accident) Permanent Comment: With residual L sided weakness Status: Chronic (4) History of colon cancer Status: Chronic (5) History of DVT of lower extremity Status: Chronic (6) HTN (hypertension) Status: Chronic (7) Kidney disease Status: Chronic (8) Macular degeneration Status: Chronic (9) Paroxysmal atrial fibrillation Status: Chronic Surgical Problems: (1) S/P exploratory laparotomy Permanent Comment: 2014 perforated viscus Status: Chronic Family History Diabetes mellitus Hypertension Kidney disease Kidney stones Social History Smoking Status: Never Smoker Alcohol Use: none Drug Use: none Marital Status: Occupational Status: retired Allergies Coded Allergies: Horse-derived Products (Verified Allergy, Unknown, Tetanus - with horse serum (equine), 10/19/17) NO KNOWN DRUG ALLERGIES (Verified Allergy, Unknown, ., 10/19/17) Home Medications Scheduled Allopurinol (Zyloprim), 100 MG PO QAM Calcium Carbonate-Cholecalcife (Caltrate 600+D), 1 TAB PO BID Ferrous Sulfate (Iron), 325 MG PO BID Gabapentin (Neurontin), 300 MG PO TID Hctz/Lisinopril (Lisinopril/Hctz 20/25 Mg), 1 TAB PO QAM Metoprolol Tartrate (Metoprolol Tartrate), 50 MG PO BID Pantoprazole (Protonix), 40 MG PO QAM Pravastatin Sod (Pravastatin Sodium), 40 MG PO DAILY Prednisone (Prednisone), 10 MG PO DAILY Scheduled PRN Acetaminophen (Tylenol), 500 MG PO Q8 PRN for Pain Hydrocodone/Acetaminophen 5MG/325MG ([place] 5MG/325MG), 1 TABLET PO Q6H PRN for Pain Polyethylene Glycol-Propylene (Systane), 1 DROPS OPB DAILY PRN for DRYNESS Review of Systems Constitutional: No fever, No weight loss Eyes: + worsening of vision (Macular degeneration) ENT: No hearing loss, No nasal symptoms, No sore throat Respiratory: + cough (Mild), No shortness of breath Cardiovascular: + edema (Chronic), No chest pain Abdomen: + problem reported (As noted above in HPI) Musculoskeletal: + joint pain (Chronic arthritis) Genitourinary - Female: No dysuria, No hematuria Neurologic: + problem reported (No headaches), No memory loss Endocrine: + fatigue, No excessive thirst, No excessive urination Hematologic / Lymphatic: + abnormal bleeding/bruising (Bruises easily), No swollen lymph nodes Integumentary: + problem reported (Skin tear left arm), No rash, No new/ changing skin lesions Physical Exam Vital Signs Date Time Temp Pulse Resp B/P (MAP) Pulse Ox O2 Delivery O2 Flow Rate FiO2 10/19/17 16:12 81 16 120/68 96 Room Air 10/19/17 14:32 79 20 101/57 96 Room Air 10/19/17 14:08 77 18 91/56 96 Room Air 10/19/17 13:00 75 20 88/47 95 Room Air 10/19/17 11:54 77 10/19/17 11:17 37.3 80 20 108/57 94 Room Air Constitutional- vital signs as noted above; elderly female well-developed well- nourished ; no acute distress Eyes- PERRL; sclerae anicteric; conjunctivae clear ENT -external examination of ears and nose unremarkable; hearing grossly intact ; edentulous; oropharynx clear Neck- no masses; trachea midline; no thyromegaly or thyroid masses Lungs- rales left base clear to percussion; no respiratory distress Cardiovascular- RRR; 2/6 systolic murmur at base; no gallop appreciated; no JVD ; trace pretibial edema; pedal pulses diminished Abdomen-quiet bowel sounds; nondistended; nontender; no palpable masses or hepatosplenomegaly Extremities- no cyanosis; no calf tenderness Musculoskeletal- neck supple; contractures of left hip and left knee Neuro- alert, oriented; PERRL, EOMI, no facial palsy; no dysarthria; left hemiparesis Psychiatric- normal affect Skin- warm & dry; chronic venous stasis changes left lower extremity; skin tear left upper arm . Diagnostics Laboratory Results Results Past 24 Hours Test 10/19/17 12:44 10/19/17 13:46 10/19/17 15:21 10/19/17 16:24 Range/Units Sodium Level 135 136-145 mmol/L Potassium Level 4.1 3.5-5.1 mmol/L Chloride Level 102 98-107 mmol/L Carbon Dioxide Level 24 21-32 mmol/L Anion Gap 8.0 3-11 mmol/L Blood Urea Nitrogen 33 7-18 mg/dl Creatinine 1.59 0.60-1.20 mg/dl Est Creatinine Clear Calc Drug Dose 19.7 ml/min Estimated GFR () 33.5 Estimated GFR (Non- 28.9 BUN/Creatinine Ratio 20.7 10-20 Random Glucose 79 70-99 mg/dl Calcium Level 8.5 8.5-10.1 mg/dl Total Bilirubin 0.4 0.2-1 mg/dl Direct Bilirubin < 0.1 0-0.2 mg/dl Aspartate Amino Transf (AST/SGOT) 14 15-37 U/L Alanine Aminotransferase (ALT/SGPT) 12 12-78 U/L Alkaline Phosphatase 50 45-117 U/L Troponin I 0.051 0-0.045 ng/ml Total Protein 5.3 6.4-8.2 gm/dl Albumin 2.7 3.4-5.0 gm/dl Lipase 107 73-393 U/L White Blood Count 24.12 4.8-10.8 K/uL Red Blood Count 3.46 4.2-5.4 M/uL Hemoglobin 11.0 12.0-16.0 g/dL Hematocrit 32.6 37-47 % Mean Corpuscular Volume 94.2 80-100 fL Mean Corpuscular Hemoglobin 31.8 25-34 pg Mean Corpuscular Hemoglobin Concent 33.7 32-36 g/dl Platelet Count 134 130-400 K/uL Mean Platelet Volume 9.6 7.4-10.4 fL Neutrophils (%) (Auto) 86.0 % Lymphocytes (%) (Auto) 5.0 % Monocytes (%) (Auto) 7.3 % Eosinophils (%) (Auto) 0.0 % Basophils (%) (Auto) 0.2 % Neutrophils # (Auto) 20.76 1.4-6.5 K/uL Lymphocytes # (Auto) 1.20 1.2-3.4 K/uL Monocytes # (Auto) 1.76 0.11-0.59 K/uL Eosinophils # (Auto) 0.01 0-0.5 K/uL Basophils # (Auto) 0.04 0-0.2 K/uL RDW Standard Deviation 52.2 36.4-46.3 fL RDW Coefficient of Variation 15.2 11.5-14.5 % Immature Granulocyte % (Auto) 1.5 % Immature Granulocyte # (Auto) 0.35 0.00-0.02 K/uL Toxic Vacuolation 1+ Urine Color YELLOW Urine Appearance CLOUDY CLEAR Urine pH 5.0 4.5-7.5 Urine Specific [place] 1.015 1.000-1.030 Urine Protein NEG NEG Urine Glucose (UA) NEG NEG Urine Ketones NEG NEG Urine Occult Blood NEG NEG Urine Nitrite POS NEG Urine Bilirubin NEG NEG Urine Urobilinogen NEG NEG Urine Leukocyte Esterase SMALL NEG Urine WBC (Auto) 10-30 0-5 /hpf Urine RBC (Auto) 0-4 0-4 /hpf Urine Hyaline Casts (Auto) 1-5 0-5 /lpf Urine Epithelial Cells (Auto) >30 0-5 /lpf Urine Bacteria (Auto) 2+ NEG Microbiology Results 10/19/17 Blood Culture, Received Pending 10/19/17 Blood Culture, Received Pending 10/19/17 MRSA DNA Surveillance Screen, Daniela Batch Pending 10/19/17 C.difficile Toxin B Gene (PCR), Daniela Batch Pending 10/19/17 Urine Culture, Received Pending Diagnostic Radiology CHEST X-RAY IMPRESSION: 1. Cardiomegaly and mild pulmonary vascular congestion without overt pulmonary edema. 2. Subsegmental left basilar opacities favor atelectasis. The above report was generated using voice recognition software. It may contain grammatical, syntax or spelling errors. Electronically signed by: Joe Soriano M.D. 10/19/2017 2:21 PM Dictated Date/Time: 10/19/2017 2:[address] ABDOMEN & PELVIS IMPRESSION: 1. Extensive peribronchovascular consolidation in the left lower lobe consistent with pneumonia. 2. Fluid in the colon suggests a diarrheal state. No evidence to suggest severe colitis. No free air for bowel obstruction. 3. Osteopenia with multiple compression deformities which are fairly similar to the prior exam 2014. 4. Postsurgical changes of partial sigmoidectomy with rectal anastomosis. Electronically signed by: Vel Gallardo M.D. 10/19/2017 2:58 PM Dictated Date/Time: 10/19/2017 2:48 PM . EKG EKG performed at 1313 demonstrated normal sinus rhythm at 70/minute, baseline artifact, biphasic T waves inferior leads, biphasic/inverted T waves lateral precordial leads. . Impression Assessment and Plan PNEUMONIA Patient reports cough for 1 week. Chest x-ray demonstrates left lower lobe infiltrate. WBC elevated, but does not meet other SIRS criteria. Blood cultures obtained. Received intravenous piperacillin/tazobactam in the ED which will be continued. Also received intravenous vancomycin in ED. Nasal MRSA swab negative, so MRSA pneumonia very unlikely. POSSIBLE UTI Urinalysis demonstrates pyuria and bacteriuria; epithelial cells were also noted. Patient denies urinary symptoms. Check urine culture. Received intravenous piperacillin/tazobactam in the ED which will be continued. DIARRHEA Multiple episodes of diarrhea at home. Check stools for C. difficile. HYPOTENSION BP as low as 88 systolic in the ED. Improved with fluid resuscitation. IV hydrocortisone ordered in light of chronic prednisone therapy. Follow hemodynamics. ABNORMAL EKG / ELEVATED TROPONIN Patient denies any chest pain. Serum troponin slightly elevated at 0.051-may be nonspecific elevation secondary to infection. EKG shows inferolateral T-wave changes. Continue metoprolol and statin. Add aspirin. Check follow-up EKG and troponin. HYPERTENSION Blood pressure usually managed with metoprolol 50 mg twice daily and lisinopril/ hydrochlorothiazide. BP low in the ED. Hold lisinopril/hydrochlorothiazide. Decrease metoprolol to 25 mg twice daily. Follow and titrate therapy. CKD III Serum creatinine 1.59. Received IV fluids. Follow. GOUT Continue allopurinol and prednisone. Continue usual analgesics. RESUSCITATION STATUS Discussed with patient and her family. She believes that she has a living will. She would like resuscitation attempted in the event of a cardiopulmonary arrest if there is a reasonable chance of a meaningful recovery, but does not want prolonged extraordinary measures if prognosis is poor. Therefore, code status = "Level 1" (full resuscitation). VTE PROPHYLAXIS High risk for VTE. Nonambulatory. SQ heparin. DISPOSITION Admit to Telemetry Unit. Expected discharge to home. Family Medicine follow-up with Dr. Diaz. . VTE Prophylaxis VTE Risk Assessment Done? Y/N: Yes Risk Level: High Given or contraindicated: Unfractionated heparin SQ
[2017-10-19] MEDS ORDERED: PIPERACILL/TAZOBAC CONSULT ACTIVE PRN (16:45)
[2017-10-19 17:09] LABS: INR 1.1 (0.9-1.1); PTT PATIENT 26.7 SECONDS (21.0-31.0)
[2017-10-19 18:38] VITALS: BP 145/57; PULSE 81; TEMP 36.7; BMI 21.5
[2017-10-19 18:50] VITALS: O2SAT 100
[2017-10-19] MEDS ORDERED: HYDROCORTISONE IV 50 MG in SYRINGE 0 ML IV ONE (19:30)
[2017-10-19 19:49] VITALS: BP 117/64; PULSE 75; TEMP 37.1; O2SAT 96
[2017-10-19 20:00] VITALS: O2SAT 97
[2017-10-19] MEDS: HYDROCODONE/ACETAMIN 5/325MG TAB PO PRN (20:09)
[2017-10-19] MEDS: GABAPENTIN 300 MG CAP PO SCH (20:10)
[2017-10-19] MEDS: PRAVASTATIN SOD 40 MG TAB PO SCH (20:10)
[2017-10-19] MEDS: HEPARIN SOD 5000 UNIT/0.5 ML CARP SQ SCH (20:12)
[2017-10-19 23:48] VITALS: BP 104/52; PULSE 81; TEMP 36.8; O2SAT 100
[2017-10-20] MEDS: PIPERACILL/TAZOBAC IV 3.375 GM in DEXTROSE 5% 100ML 100 ML IV SCH ×3 (00:04→23:35)
[2017-10-20 05:39] VITALS: BP 106/51; PULSE 70; TEMP 36.6; O2SAT 100
[2017-10-20 06:35] LABS: HEMATOCRIT 31.2 % (37-47); HEMOGLOBIN 10.6 g/dL (12.0-16.0); MEAN CORPUSCULAR HEMOGLOBIN 31.9 pg (25-34); MEAN PLATELET VOLUME 9.2 fL (7.4-10.4); PLATELET COUNT 138 K/uL (130-400); RED CELL DISTRIBUTION WIDTH CV 15.5 % (11.5-14.5); RED CELL DISTRIBUTION WIDTH SD 52.4 fL (36.4-46.3); WHITE BLOOD COUNT 22.89 K/uL (4.8-10.8)
[2017-10-20 06:45] LABS: CREATININE 1.33 mg/dl (0.60-1.20)
[2017-10-20 06:46] LABS: CALCIUM 8.2 mg/dl (8.5-10.1)
[2017-10-20 08:00] VITALS: BP 119/62; PULSE 76; TEMP 36.7; O2SAT 100
[2017-10-20] MEDS: ASPIRIN 81 MG ECTAB PO SCH (09:07)
[2017-10-20] MEDS: METOPROLOL TARTRATE 25 MG TAB PO SCH ×2 (09:08→21:25)
[2017-10-20] MEDS: GABAPENTIN 300 MG CAP PO SCH ×3 (09:09→21:25)
[2017-10-20] MEDS: PANTOprazole SOD 40 MG TAB PO SCH (09:09)
[2017-10-20] MEDS: ALLOPURINOL 100 MG TAB PO SCH (09:10)
[2017-10-20] MEDS: HEPARIN SOD 5000 UNIT/0.5 ML CARP SQ SCH ×2 (09:12→21:30)
[2017-10-20] MEDS: HYDROCODONE/ACETAMIN 5/325MG TAB PO PRN (10:43)
[2017-10-20 11:47] VITALS: BP 149/80; PULSE 76; TEMP 36.7; O2SAT 100
--- NOTE | 2017-10-20 15:57 | Progress Note ---
Medicine Progress Note Date & Time of Visit: Oct 20, 2017 at 15:36. Subjective Pt was seen and examined Lying in bed with no distress with daughter at bedside Pt is very pleasant Denies any pain Daughter said that pt has been having diarrhea twice a week. She said that she is constipated for the other days. Pt said that her cough improved Denies any palpitation, dizziness and sob Objective Last 8 Hrs Date Time Temp Pulse Resp B/P (MAP) Pulse Ox O2 Delivery O2 Flow Rate FiO2 10/20/17 12:00 Room Air 10/20/17 11:47 36.7 76 20 149/80 (103) 100 Room Air 10/20/17 10:37 Room Air 10/20/17 08:00 100 Room Air 10/20/17 08:00 36.7 76 20 119/62 (81) 100 Nasal Cannula 2.0 Physical Exam: General- No acute distress Head- atraumatic Eyes- PERRL, EOMI ENT- oropharynx clear Neck- supple, no JVD Lungs- Poor air entry Heart- regular rhythm, +murmur Abdomen- normal bowel sounds, soft Extremities- no calf tenderness Neuro- alert, oriented x 3; PERRL Skin- warm & dry Laboratory Results: Last 24 Hours Test 10/19/17 16:46 10/20/17 06:08 Prothrombin Time 11.2 SECONDS Prothromb Time International Ratio 1.1 Activated Partial Thromboplast Time 26.7 SECONDS Partial Thromboplastin Ratio 1.0 Lactic Acid Level 2.0 mmol/L White Blood Count 22.89 K/uL Red Blood Count 3.32 M/uL Hemoglobin 10.6 g/dL Hematocrit 31.2 % Mean Corpuscular Volume 94.0 fL Mean Corpuscular Hemoglobin 31.9 pg Mean Corpuscular Hemoglobin Concent 34.0 g/dl RDW Standard Deviation 52.4 fL RDW Coefficient of Variation 15.5 % Platelet Count 138 K/uL Mean Platelet Volume 9.2 fL Sodium Level 137 mmol/L Potassium Level 4.0 mmol/L Chloride Level 106 mmol/L Carbon Dioxide Level 23 mmol/L Anion Gap 8.0 mmol/L Blood Urea Nitrogen 32 mg/dl Creatinine 1.33 mg/dl Est Creatinine Clear Calc Drug Dose 23.6 ml/min Estimated GFR () 41.6 Estimated GFR (Non- 35.9 BUN/Creatinine Ratio 24.1 Random Glucose 84 mg/dl Calcium Level 8.2 mg/dl Troponin I 0.036 ng/ml Date/Time Source Procedure Growth Status 10/19/17 16:52 Nasal MRSA DNA Surveillance Screen - Final Specimen Negative for MRSA by DNA Probe Complete 10/20/17 05:26 Stool C.difficile Toxin B Gene (PCR) Pending Ordered Assessment & Plan PNEUMONIA CXR on admission showed left lower lobe infiltrate. Elevated WBC Blood cultures pending Received intravenous piperacillin/tazobactam and Vanco in the ED Continue IV Zosyn Monitor CBC Clinically improved UTI Urine cx growth gram negative bacilli On IV Zosyn Will follow sensitivity. . DIARRHEA No more episode of diarrhea Stool for C-diff did not collected Daughter said pt has diarrhea twice a week and constipated for the other days HYPOTENSION BP was low in the ER Resolved ABNORMAL EKG / ELEVATED TROPONIN Troponin was 0.051 on admission Possible related to infection vs dehydration EKG shows inferolateral T-wave changes. Repeat trop trending down to normal denies any chest pain Continue metoprolol, aspirin and statin. HYPERTENSION BP stable Metoprolol decreased to 25mg mg twice daily lisinopril/hydrochlorothiazide on hold Continue monitor BP, if starting to elevating, will resume lisinopril/hctz CKD III Serum creatinine 1.59 on admission Received IV fluids. Creatine improved to 1.33 GOUT Continue allopurinol and prednisone. Stable RESUSCITATION STATUS FULL CODE VTE PROPHYLAXIS Nonambulatory. SQ heparin. DISPOSITION Will discharge once medically stable Current Inpatient Medications: Current Inpatient Medications Medications (Trade) Dose Ordered Sig/Alicia Route Start Time Stop Time Status Last Admin Dose Admin Heparin Sodium (Porcine) (Heparin Sq 5000 Unit/0.5ml) 5,000 unit Q12 SQ 10/19/17 21:00 11/18/17 20:59 10/20/17 09:12 5,000 UNIT Acetaminophen (Tylenol Tab) 650 mg Q4H PRN PO 10/19/17 16:30 11/18/17 16:29 Ondansetron HCl (Zofran Inj) 4 mg Q6H PRN IV 10/19/17 16:30 11/18/17 16:29 Allopurinol (Zyloprim Tab) 100 mg QAM PO 10/20/17 09:00 11/19/17 08:59 10/20/17 09:10 100 MG Gabapentin (Neurontin Cap) 300 mg TID PO 10/19/17 21:00 11/18/17 20:59 10/20/17 14:19 300 MG Acetaminophen/ Hydrocodone Bitart ([place] 5/325 Tab) 1 tab Q6H PRN PO 10/19/17 16:30 11/02/17 16:29 10/20/17 10:43 1 TAB Pantoprazole Sodium (Protonix Tab) 40 mg QAM PO 10/20/17 09:00 11/19/17 08:59 10/20/17 09:09 40 MG Pravastatin Sodium (Pravachol Tab) 40 mg HS PO 10/19/17 21:00 11/18/17 20:59 10/19/17 20:10 40 MG Prednisone (PredniSONE TAB) 10 mg DAILY PO 10/20/17 09:00 11/19/17 08:59 10/20/17 09:09 10 MG Piperacillin Sod/ Tazobactam Sod 3.375 gm/Dextrose 115 ml @ 28.75 mls/ hr Q12H IV 10/20/17 00:00 10/26/17 14:59 10/20/17 11:06 28.75 MLS/HR Miscellaneous Information (Consult) 1 ea UD PRN N/A 10/19/17 16:45 11/18/17 16:44 Metoprolol Tartrate (Lopressor Tab) 25 mg BID PO 10/20/17 09:00 11/19/17 08:59 10/20/17 09:08 25 MG Aspirin (Ecotrin Tab) 81 mg QAM PO 10/20/17 09:00 11/19/17 08:59 10/20/17 09:07 81 MG
[2017-10-20 15:58] VITALS: BP 102/46; PULSE 78; TEMP 36.7; O2SAT 100
[2017-10-20 19:41] VITALS: BP 125/51; PULSE 84; TEMP 36.6; O2SAT 100
[2017-10-20] MEDS: PRAVASTATIN SOD 40 MG TAB PO SCH (21:25)
[2017-10-20 23:33] VITALS: BP 147/87; PULSE 78; TEMP 36.5; O2SAT 92
[2017-10-21] MEDS: HYDROCODONE/ACETAMIN 5/325MG TAB PO PRN ×3 (01:12→14:11)
[2017-10-21 03:50] VITALS: BP 145/80; PULSE 76; TEMP 36.6; O2SAT 95
[2017-10-21 06:46] LABS: HEMATOCRIT 31.1 % (37-47); HEMOGLOBIN 10.7 g/dL (12.0-16.0); MEAN CELL VOLUME 93.1 fL (80-100); MEAN CORPUSCULAR HGB CONC 34.4 g/dl (32-36); MEAN PLATELET VOLUME 9.6 fL (7.4-10.4); PLATELET COUNT 168 K/uL (130-400); RED CELL DISTRIBUTION WIDTH CV 15.3 % (11.5-14.5); RED CELL DISTRIBUTION WIDTH SD 51.8 fL (36.4-46.3); WHITE BLOOD COUNT 19.02 K/uL (4.8-10.8)
[2017-10-21 07:21] LABS: CALCIUM 8.4 mg/dl (8.5-10.1); CREATININE 1.33 mg/dl (0.60-1.20); POTASSIUM 3.9 mmol/L (3.5-5.1)
[2017-10-21 07:55] VITALS: BP 184/110; PULSE 89; TEMP 36.6; O2SAT 96
[2017-10-21] MEDS: GABAPENTIN 300 MG CAP PO SCH ×3 (07:56→21:18)
[2017-10-21] MEDS: ASPIRIN 81 MG ECTAB PO SCH (07:56)
[2017-10-21] MEDS: ALLOPURINOL 100 MG TAB PO SCH (07:57)
[2017-10-21] MEDS: PANTOprazole SOD 40 MG TAB PO SCH (07:58)
[2017-10-21] MEDS: METOPROLOL TARTRATE 25 MG TAB PO SCH (07:58)
[2017-10-21] MEDS: HEPARIN SOD 5000 UNIT/0.5 ML CARP SQ SCH ×2 (08:01→21:35)
[2017-10-21 11:32] VITALS: BP 144/71; PULSE 68; TEMP 36.3; O2SAT 100
[2017-10-21] MEDS: PIPERACILL/TAZOBAC IV 3.375 GM in DEXTROSE 5% 100ML 100 ML IV SCH (11:47)
[2017-10-21 15:14] VITALS: BP_SYST 204; BP_SYST 220; BP_DIAS 105; PULSE 97; TEMP 36.6; O2SAT 96
[2017-10-21 16:02] VITALS: BP 180/80; PULSE 86
--- NOTE | 2017-10-21 21:08 | Progress Note ---
Medicine Progress Note Date & Time of Visit: Oct 21, 2017 at 21:08. Subjective Pt was seen and examined Lying in bed with no distress Pt said that she is having black pain just by lying in the bed Denies any chest pain, palpitation and sob Objective Last 8 Hrs Date Time Temp Pulse Resp B/P (MAP) Pulse Ox O2 Delivery O2 Flow Rate FiO2 10/21/17 16:02 86 180/80 (113) 10/21/17 16:00 Room Air 10/21/17 15:14 36.6 97 20 204/105 (138) 96 Room Air 220/105 (143) Physical Exam: General- No acute distress Head- atraumatic Eyes- PERRL, EOMI ENT- oropharynx clear Neck- supple, no JVD Lungs- Poor air entry Heart- regular rhythm, +murmur Abdomen- normal bowel sounds, soft Extremities- no calf tenderness Neuro- alert, oriented x 3; PERRL Skin- warm & dry Laboratory Results: Last 24 Hours Test 10/21/17 06:29 White Blood Count 19.02 K/uL Red Blood Count 3.34 M/uL Hemoglobin 10.7 g/dL Hematocrit 31.1 % Mean Corpuscular Volume 93.1 fL Mean Corpuscular Hemoglobin 32.0 pg Mean Corpuscular Hemoglobin Concent 34.4 g/dl RDW Standard Deviation 51.8 fL RDW Coefficient of Variation 15.3 % Platelet Count 168 K/uL Mean Platelet Volume 9.6 fL Sodium Level 137 mmol/L Potassium Level 3.9 mmol/L Chloride Level 106 mmol/L Carbon Dioxide Level 22 mmol/L Anion Gap 9.0 mmol/L Blood Urea Nitrogen 31 mg/dl Creatinine 1.33 mg/dl Est Creatinine Clear Calc Drug Dose 23.5 ml/min Estimated GFR () 41.6 Estimated GFR (Non- 35.9 BUN/Creatinine Ratio 23.3 Random Glucose 72 mg/dl Calcium Level 8.4 mg/dl Assessment & Plan PNEUMONIA CXR on admission showed left lower lobe infiltrate. Elevated WBC Blood cultures no growth Received intravenous piperacillin/tazobactam and Vanco in the ED Continue IV Zosyn Monitor CBC Clinically improved UTI Urine cx growth gram negative bacilli- Growth E-coli and Klebsiella On IV Zosyn Will change abx to po . DIARRHEA No more episode of diarrhea Stool for C-diff did not collected Daughter said pt has diarrhea twice a week and constipated for the other days HYPOTENSION BP was low in the ER Resolved ABNORMAL EKG / ELEVATED TROPONIN Troponin was 0.051 on admission Possible related to infection vs dehydration EKG shows inferolateral T-wave changes. Repeat trop trending down to normal denies any chest pain Continue metoprolol, aspirin and statin. HYPERTENSION BP elevated Metoprolol increased back to 50mg BID hydrochlorothiazide on hold Resume lisinopril Starting on IV hydralazine prn Continue monitor BP CKD III Serum creatinine 1.59 on admission Received IV fluids. Creatine improved to 1.33 GOUT Continue allopurinol and prednisone. Stable RESUSCITATION STATUS FULL CODE VTE PROPHYLAXIS Nonambulatory. SQ heparin. DISPOSITION Will discharge once medically stable Current Inpatient Medications: Current Inpatient Medications Medications (Trade) Dose Ordered Sig/Alicia Route Start Time Stop Time Status Last Admin Dose Admin Heparin Sodium (Porcine) (Heparin Sq 5000 Unit/0.5ml) 5,000 unit Q12 SQ 10/19/17 21:00 11/18/17 20:59 10/21/17 08:01 5,000 UNIT Acetaminophen (Tylenol Tab) 650 mg Q4H PRN PO 10/19/17 16:30 11/18/17 16:29 Ondansetron HCl (Zofran Inj) 4 mg Q6H PRN IV 10/19/17 16:30 11/18/17 16:29 Allopurinol (Zyloprim Tab) 100 mg QAM PO 10/20/17 09:00 11/19/17 08:59 10/21/17 07:57 100 MG Gabapentin (Neurontin Cap) 300 mg TID PO 10/19/17 21:00 11/18/17 20:59 10/21/17 14:11 300 MG Acetaminophen/ Hydrocodone Bitart ([place] 5/325 Tab) 1 tab Q6H PRN PO 10/19/17 16:30 11/02/17 16:29 10/21/17 14:11 1 TAB Pantoprazole Sodium (Protonix Tab) 40 mg QAM PO 10/20/17 09:00 11/19/17 08:59 10/21/17 07:58 40 MG Pravastatin Sodium (Pravachol Tab) 40 mg HS PO 10/19/17 21:00 11/18/17 20:59 10/20/17 21:25 40 MG Prednisone (PredniSONE TAB) 10 mg DAILY PO 10/20/17 09:00 11/19/17 08:59 10/21/17 07:57 10 MG Piperacillin Sod/ Tazobactam Sod 3.375 gm/Dextrose 115 ml @ 28.75 mls/ hr Q12H IV 10/20/17 00:00 10/26/17 14:59 10/21/17 11:47 28.75 MLS/HR Miscellaneous Information (Consult) 1 ea UD PRN N/A 10/19/17 16:45 11/18/17 16:44 Metoprolol Tartrate (Lopressor Tab) 25 mg BID PO 10/20/17 09:00 11/19/17 08:59 10/21/17 07:58 25 MG Aspirin (Ecotrin Tab) 81 mg QAM PO 10/20/17 09:00 11/19/17 08:59 10/21/17 07:56 81 MG
[2017-10-21] MEDS: PRAVASTATIN SOD 40 MG TAB PO SCH (21:19)
[2017-10-21] MEDS ORDERED: METOPROLOL TARTRATE 25 MG TAB PO ONE (21:30)
[2017-10-21 23:48] VITALS: BP 197/106; PULSE 84; TEMP 36.4; O2SAT 95
[2017-10-22] VITALS (12 sets, daily range): BP systolic 70–193; BP diastolic 53–127; PULSE 78–164; TEMP 36.3–36.7; O2SAT 92–99
[2017-10-22] MEDS: PIPERACILL/TAZOBAC IV 3.375 GM in DEXTROSE 5% 100ML 100 ML IV SCH ×3 (00:36→23:53)
[2017-10-22] MEDS: HydrALAZINE HCL 20 MG/ML VIAL IV. PRN ×2 (04:33→15:45)
[2017-10-22] MEDS ORDERED: METOPROLOL TARTRATE 50 MG TAB PO ONE (05:25)
[2017-10-22] MEDS ORDERED: LISINOPRIL 20 MG TAB PO ONE (05:25)
[2017-10-22] MEDS: TRAMADOL HCL 50 MG TAB PO PRN (06:02)
[2017-10-22 07:18] LABS: HEMATOCRIT 37.5 % (37-47); HEMOGLOBIN 12.8 g/dL (12.0-16.0); MEAN CELL VOLUME 92.4 fL (80-100); MEAN CORPUSCULAR HEMOGLOBIN 31.5 pg (25-34); MEAN CORPUSCULAR HGB CONC 34.1 g/dl (32-36); MEAN PLATELET VOLUME 9.7 fL (7.4-10.4); PLATELET COUNT 203 K/uL (130-400); RED CELL DISTRIBUTION WIDTH CV 15.1 % (11.5-14.5); RED CELL DISTRIBUTION WIDTH SD 50.9 fL (36.4-46.3); WHITE BLOOD COUNT 18.73 K/uL (4.8-10.8)
[2017-10-22] MEDS: HEPARIN SOD 5000 UNIT/0.5 ML CARP SQ SCH ×2 (08:38→20:51)
[2017-10-22] MEDS: ASPIRIN 81 MG ECTAB PO SCH (08:39)
[2017-10-22] MEDS: PANTOprazole SOD 40 MG TAB PO SCH (08:39)
[2017-10-22] MEDS: ALLOPURINOL 100 MG TAB PO SCH (08:39)
[2017-10-22] MEDS: GABAPENTIN 300 MG CAP PO SCH ×3 (08:39→20:49)
[2017-10-22] MEDS ORDERED: METOPROLOL TARTRATE 50 MG TAB PO SCH (09:00)
[2017-10-22] MEDS ORDERED: LISINOPRIL 20 MG TAB PO SCH (09:00)
[2017-10-22] MEDS: HYDROCODONE/ACETAMIN 5/325MG TAB PO PRN (15:44)
[2017-10-22] MEDS ORDERED: AMIODARONE IV BOLUS / DRIP IV STA (17:23)
[2017-10-22] MEDS ORDERED: METOPROLOL TARTRATE 1 MG/ML VIAL IV SCH (17:30)
[2017-10-22] MEDS ORDERED: AMIODARONE / D5W 100 ML IV ONE (17:35)
[2017-10-22] MEDS ORDERED: AMIODARONE 150MG / 100ML D5W ONE (17:35)
[2017-10-22] MEDS ORDERED: AMIODARONE 360MG / 200ML D5W ONE (17:35)
[2017-10-22] MEDS ORDERED: AMIODARONE / D5W 200 ML IV SCH ×2 (17:45→23:45)
--- NOTE | 2017-10-22 18:16 | Progress Note ---
Medicine Progress Note Date & Time of Visit: Oct 22, 2017 at 17:55. Subjective Pt was seen and examined Lying in bed with no distress Pt is very anxious to go home She thought she was going to go home today but I told her that she is going home tomorrow Pt said that she is starting to get afraid by staying in the hospital Later Nurse called and pt was in Afib with RVR Pt said that she is afraid that she might not go home tomorrow because it is going to snow and she might end up to stay until next week she said that as soon as she thought about that, she is starting to have palpitation Denies any chest pain, dizziness and sob Objective Last 8 Hrs Date Time Temp Pulse Resp B/P (MAP) Pulse Ox O2 Delivery O2 Flow Rate FiO2 10/22/17 17:30 164 70/53 10/22/17 17:20 164 70/53 (59) 10/22/17 17:10 156 94/66 (75) 10/22/17 16:00 Room Air 10/22/17 15:43 168/93 (118) 10/22/17 15:39 36.3 106 22 191/116 (141) 97 Room Air 192/127 (148) 10/22/17 12:00 Room Air 10/22/17 11:56 36.4 80 18 167/80 (109) 93 Physical Exam: General- No acute distress Head- atraumatic Eyes- PERRL, EOMI ENT- oropharynx clear Neck- supple, no JVD Lungs- Poor air entry Heart- irregular rhythm, +murmur Abdomen- normal bowel sounds, soft Extremities- no calf tenderness Neuro- alert, oriented x 3; PERRL Skin- warm & dry Laboratory Results: Last 24 Hours Test 10/22/17 06:48 10/22/17 17:14 White Blood Count 18.73 K/uL Red Blood Count 4.06 M/uL Hemoglobin 12.8 g/dL Hematocrit 37.5 % Mean Corpuscular Volume 92.4 fL Mean Corpuscular Hemoglobin 31.5 pg Mean Corpuscular Hemoglobin Concent 34.1 g/dl RDW Standard Deviation 50.9 fL RDW Coefficient of Variation 15.1 % Platelet Count 203 K/uL Mean Platelet Volume 9.7 fL Assessment & Plan AFIB WITH RVR Hx of paroxysmal afib Possible due to anxiety to go home because BP was low, unable to start on cardizem or lopressor Starting on Amiodarone drip/bolus After about 30 minutes, pt was converted back to sinus rhythm with rate control Will run the amiodarone for now and stopped it when receiving her metoprolol [id number] - score about 5 (Age,sex,CVA, HTN) Since pt converted back in less than 30 minutes, not a fpc candidate of anticoagulant due to unsteady gait Will hold on anticoagulant. If converts back to Afib will start on heparin drip Cardiology consult Check Echo Check TSH, Mg Troponin and Potassium Continue monitor in tele PNEUMONIA CXR on admission showed left lower lobe infiltrate. Elevated WBC Blood cultures no growth Received intravenous piperacillin/tazobactam and Vanco in the ED Continue IV Zosyn Monitor CBC Clinically improved UTI Urine cx growth gram negative bacilli- Growth E-coli and Klebsiella On IV Zosyn Will change abx to po tomorrow on discharge . DIARRHEA No more episode of diarrhea Stool for C-diff negative Daughter said pt has diarrhea twice a week and constipated for the other days HYPOTENSION BP was low in the ER Resolved ABNORMAL EKG / ELEVATED TROPONIN Troponin was 0.051 on admission Possible related to infection vs dehydration EKG shows inferolateral T-wave changes. Repeat trop trending down to normal denies any chest pain Continue metoprolol, aspirin and statin. HYPERTENSION BP elevated Metoprolol increased back to 50mg BID hydrochlorothiazide on hold Resume lisinopril Starting on IV hydralazine prn Continue monitor BP 3/2 BP was low Lisinopril and HCTZ on hold Continue monitor BP CKD III Serum creatinine 1.59 on admission Received IV fluids. Creatine improved to 1.33 GOUT Continue allopurinol and prednisone. Stable RESUSCITATION STATUS FULL CODE VTE PROPHYLAXIS Nonambulatory. SQ heparin. DISPOSITION Will discharge once medically stable Current Inpatient Medications: Current Inpatient Medications Medications (Trade) Dose Ordered Sig/Alicia Route Start Time Stop Time Status Last Admin Dose Admin Heparin Sodium (Porcine) (Heparin Sq 5000 Unit/0.5ml) 5,000 unit Q12 SQ 10/19/17 21:00 11/18/17 20:59 10/22/17 08:38 5,000 UNIT Ondansetron HCl (Zofran Inj) 4 mg Q6H PRN IV 10/19/17 16:30 11/18/17 16:29 Allopurinol (Zyloprim Tab) 100 mg QAM PO 10/20/17 09:00 11/19/17 08:59 10/22/17 08:39 100 MG Gabapentin (Neurontin Cap) 300 mg TID PO 10/19/17 21:00 11/18/17 20:59 10/22/17 14:37 300 MG Acetaminophen/ Hydrocodone Bitart ([place] 5/325 Tab) 1 tab Q6H PRN PO 10/19/17 16:30 11/02/17 16:29 10/22/17 15:44 1 TAB Pantoprazole Sodium (Protonix Tab) 40 mg QAM PO 10/20/17 09:00 11/19/17 08:59 10/22/17 08:39 40 MG Pravastatin Sodium (Pravachol Tab) 40 mg HS PO 10/19/17 21:00 11/18/17 20:59 10/21/17 21:19 40 MG Prednisone (PredniSONE TAB) 10 mg DAILY PO 10/20/17 09:00 11/19/17 08:59 10/22/17 08:39 10 MG Piperacillin Sod/ Tazobactam Sod 3.375 gm/Dextrose 115 ml @ 28.75 mls/ hr Q12H IV 10/20/17 00:00 10/26/17 14:59 10/22/17 11:50 28.75 MLS/HR Miscellaneous Information (Consult) 1 ea UD PRN N/A 10/19/17 16:45 11/18/17 16:44 Aspirin (Ecotrin Tab) 81 mg QAM PO 10/20/17 09:00 11/19/17 08:59 10/22/17 08:39 81 MG Hydralazine HCl (HydrALAZINE INJ) 5 mg Q4 PRN IV. 10/21/17 21:15 11/20/17 21:14 10/22/17 15:45 5 MG Tramadol HCl (Ultram Tab) 25 mg Q6H PRN PO 10/22/17 05:30 11/21/17 05:29 10/22/17 06:02 25 MG Acetaminophen (Tylenol Tab) 650 mg Q6H PRN PO 10/22/17 05:30 11/21/17 05:29 Lisinopril (Zestril Tab) 20 mg QAM PO 10/23/17 09:00 11/21/17 08:59 Metoprolol Tartrate (Lopressor Tab) 50 mg BID PO 10/22/17 21:00 11/21/17 08:59 Future Hold Metoprolol Tartrate (Lopressor Iv) 5 mg TODAY@1730 IV 10/22/17 17:30 10/22/17 19:00 Amiodarone HCL/ Dextrose 200 ml @ 33.3 mls/hr Q6H1M IV 10/22/17 17:45 10/22/17 23:45 10/22/17 17:42 33.3 MLS/HR Amiodarone HCL/ Dextrose 200 ml @ 16.7 mls/hr [id number] IV 10/22/17 23:45 11/21/17 23:44
[2017-10-22 18:19] LABS: POTASSIUM 3.8 mmol/L (3.5-5.1)
[2017-10-22] MEDS ORDERED: POTASSIUM CHLORIDE 10 MEQ TABCR PO ONE (20:00)
[2017-10-22] MEDS: MAGNESIUM SULFATE 1GM / D5W 1 GM in PREMIXED IN D5W 100 ML IV SCH ×2 (20:47→21:00)
[2017-10-22] MEDS: METOPROLOL TARTRATE 50 MG TAB PO SCH (20:49)
[2017-10-22] MEDS: PRAVASTATIN SOD 40 MG TAB PO SCH (20:49)
[2017-10-23] VITALS (8 sets, daily range): BP systolic 96–167; BP diastolic 40–97; PULSE 64–95; TEMP 36.5–36.7; O2SAT 92–99; Ht 157.5 cm; Wt 60.1 kg
[2017-10-23] MEDS: HydrALAZINE HCL 20 MG/ML VIAL IV. PRN ×2 (00:56→04:18)
[2017-10-23 07:39] LABS: CREATININE 1.34 mg/dl (0.60-1.20); POTASSIUM 3.7 mmol/L (3.5-5.1)
[2017-10-23 08:26] LABS: HEMATOCRIT 36.8 % (37-47); HEMOGLOBIN 12.8 g/dL (12.0-16.0); MEAN CELL VOLUME 91.8 fL (80-100); MEAN CORPUSCULAR HEMOGLOBIN 31.9 pg (25-34); MEAN CORPUSCULAR HGB CONC 34.8 g/dl (32-36); PLATELET COUNT 182 K/uL (130-400); RED CELL DISTRIBUTION WIDTH CV 15.5 % (11.5-14.5); RED CELL DISTRIBUTION WIDTH SD 51.7 fL (36.4-46.3); WHITE BLOOD COUNT 11.47 K/uL (4.8-10.8)
[2017-10-23] MEDS: METOPROLOL TARTRATE 50 MG TAB PO SCH ×2 (08:37→21:00)
[2017-10-23] MEDS: LISINOPRIL 20 MG TAB PO SCH (08:37)
[2017-10-23] MEDS: PANTOprazole SOD 40 MG TAB PO SCH (08:53)
[2017-10-23] MEDS: ASPIRIN 81 MG ECTAB PO SCH (08:53)
[2017-10-23] MEDS: ALLOPURINOL 100 MG TAB PO SCH (08:53)
[2017-10-23] MEDS: GABAPENTIN 300 MG CAP PO SCH ×3 (08:53→21:35)
[2017-10-23] MEDS: HEPARIN SOD 5000 UNIT/0.5 ML CARP SQ SCH (08:58)
--- NOTE | 2017-10-23 09:01 | Cardiology Consultation ---
Cardiology Consultation Date of Service Oct 23, 2017. Cardiology Consultation Indication: Consultation for atrial fibrillation with RVR History: This is an 87-year-old female who is cared for by her family at home. She was originally admitted with pneumonia, UTI and diarrhea. She is demented and combative. This morning the senior electronics technician tried to do an echocardiogram but had to stop because the patient was not cooperative. The information is taken from the medical record. The patient was being treated by the hospitalist for the above when she developed atrial fibrillation RVR. She got a bolus of amiodarone and a drip was started. Soon afterwards patient converted to a normal sinus rhythm. She is now clinically stable and remains in sinus rhythm. I agree with the hospitalist service that she is not a candidate for anticoagulation at this time. Allergies: Horse derived products Current Inpatient Medications Medications (Trade) Dose Ordered Sig/Alicia Route Start Time Stop Time Status Last Admin Dose Admin Heparin Sodium (Porcine) (Heparin Sq 5000 Unit/0.5ml) 5,000 unit Q12 SQ 10/19/17 21:00 11/18/17 20:59 10/22/17 20:51 5,000 UNIT Ondansetron HCl (Zofran Inj) 4 mg Q6H PRN IV 10/19/17 16:30 11/18/17 16:29 Allopurinol (Zyloprim Tab) 100 mg QAM PO 10/20/17 09:00 11/19/17 08:59 10/22/17 08:39 100 MG Gabapentin (Neurontin Cap) 300 mg TID PO 10/19/17 21:00 11/18/17 20:59 10/22/17 20:49 300 MG Acetaminophen/ Hydrocodone Bitart ([place] 5/325 Tab) 1 tab Q6H PRN PO 10/19/17 16:30 11/02/17 16:29 10/22/17 15:44 1 TAB Pantoprazole Sodium (Protonix Tab) 40 mg QAM PO 10/20/17 09:00 11/19/17 08:59 10/22/17 08:39 40 MG Pravastatin Sodium (Pravachol Tab) 40 mg HS PO 10/19/17 21:00 11/18/17 20:59 10/22/17 20:49 40 MG Prednisone (PredniSONE TAB) 10 mg DAILY PO 10/20/17 09:00 11/19/17 08:59 10/22/17 08:39 10 MG Piperacillin Sod/ Tazobactam Sod 3.375 gm/Dextrose 115 ml @ 28.75 mls/ hr Q12H IV 10/20/17 00:00 10/26/17 14:59 10/22/17 23:53 28.75 MLS/HR Miscellaneous Information (Consult) 1 ea UD PRN N/A 10/19/17 16:45 11/18/17 16:44 Aspirin (Ecotrin Tab) 81 mg QAM PO 10/20/17 09:00 11/19/17 08:59 10/22/17 08:39 81 MG Hydralazine HCl (HydrALAZINE INJ) 5 mg Q4 PRN IV. 10/21/17 21:15 11/20/17 21:14 10/23/17 04:18 5 MG Tramadol HCl (Ultram Tab) 25 mg Q6H PRN PO 10/22/17 05:30 11/21/17 05:29 10/22/17 06:02 25 MG Acetaminophen (Tylenol Tab) 650 mg Q6H PRN PO 10/22/17 05:30 11/21/17 05:29 Lisinopril (Zestril Tab) 20 mg QAM PO 10/23/17 09:00 11/21/17 08:59 Metoprolol Tartrate (Lopressor Tab) 50 mg BID PO 10/22/17 21:00 11/21/17 08:59 Future hold 10/22/17 20:49 50 MG Amiodarone HCl (Cordarone Tab) 400 mg TIDM PO 10/23/17 11:30 11/22/17 11:29 UNV Past Medical/Surgical History Chronic Medical Problems: (1) Arthritis Status: Chronic (2) Chronic kidney disease (CKD), stage III (moderate) Status: Chronic (3) H/O: CVA (cerebrovascular accident) Permanent Comment: With residual L sided weakness Status: Chronic (4) History of colon cancer Status: Chronic (5) History of DVT of lower extremity Status: Chronic (6) HTN (hypertension) Status: Chronic (7) Kidney disease Status: Chronic (8) Macular degeneration Status: Chronic (9) Paroxysmal atrial fibrillation Status: Chronic Surgical Problems: (1) S/P exploratory laparotomy Permanent Comment: 2014 perforated viscus Status: Chronic Family History Diabetes mellitus Hypertension Kidney disease Kidney stones Social History Smoking Status: Never Smoker Alcohol Use: none Drug Use: none Marital Status: Occupational Status: retired Review of systems: Unobtainable Vital Signs Past 12 Hours Date Time Temp Pulse Resp B/P (MAP) Pulse Ox O2 Delivery O2 Flow Rate FiO2 10/23/17 08:38 36.7 82 20 96/49 (65) 92 Room Air 10/23/17 04:00 99 Room Air 10/23/17 03:06 36.7 95 24 167/97 (120) 97 Room Air 10/23/17 00:08 36.5 66 22 152/89 (110) 95 Room Air 10/23/17 00:00 99 Room Air Gen.: The patient is disoriented. She is also contractured up into the position. HEENT: normocephalic, mucous membranes are moist Neck: The neck veins are flat carotids have good upstrokes bilaterally, thyroid is nonpalpable Respiratory: Rest sounds are equal bilaterally Cardiovascular: Heart has a regular rhythm, no murmurs, no S3 or S4 Abdomen: Soft and nontender Neuro: Grossly intact Extremities: Negative digital clubbing, cyanosis or edema Skin: Warm to touch Lymph nodes: Negative palpation Last 24 Hours Test 10/22/17 17:55 10/23/17 01:47 10/23/17 06:33 Potassium Level 3.8 mmol/L 3.7 mmol/L Magnesium Level 1.4 mg/dl 2.1 mg/dl Troponin I 0.095 ng/ml 0.497 ng/ml 0.565 ng/ml Thyroid Stimulating Hormone (TSH) 2.010 uIu/ml White Blood Count 11.47 K/uL Red Blood Count 4.01 M/uL Hemoglobin 12.8 g/dL Hematocrit 36.8 % Mean Corpuscular Volume 91.8 fL Mean Corpuscular Hemoglobin 31.9 pg Mean Corpuscular Hemoglobin Concent 34.8 g/dl RDW Standard Deviation 51.7 fL RDW Coefficient of Variation 15.5 % Platelet Count 182 K/uL Mean Platelet Volume 10.0 fL Sodium Level 134 mmol/L Chloride Level 100 mmol/L Carbon Dioxide Level 21 mmol/L Anion Gap 13.0 mmol/L Blood Urea Nitrogen 24 mg/dl Creatinine 1.34 mg/dl Est Creatinine Clear Calc Drug Dose 23.4 ml/min Estimated GFR () 41.2 Estimated GFR (Non- 35.5 BUN/Creatinine Ratio 17.9 Random Glucose 76 mg/dl Calcium Level 9.0 mg/dl Impression: 1. Paroxysmal atrial fibrillation 2. Dementia 3. Pneumonia, UTI, diarrhea 4. Chronic kidney disease 5. History of previous stroke Recommendations: I agree with not starting this patient on anticoagulation due to her risk of bleeding. I would recommend however that we start her on oral amiodarone's that she does not develop atrial fibrillation with RVR again. I will start her on a loading dose of 400 mg amiodarone 3 times a day. Eventually she should be discharged on 200 mg daily.
[2017-10-23] MEDS ORDERED: HEPARIN IV LOW DOSE NO BOLUS SCH (09:40)
[2017-10-23 10:41] LABS: INR 0.9 (0.9-1.1)
[2017-10-23] MEDS: AMIODARONE 200 MG TAB PO SCH ×2 (10:53→16:46)
[2017-10-23] MEDS: HYDROCODONE/ACETAMIN 5/325MG TAB PO PRN (10:54)
[2017-10-23 10:57] LABS: BASO % 0.3 %; BASO ABS # 0.03 K/uL (0-0.2); EOS % 0.6 %; EOS ABS # 0.07 K/uL (0-0.5); IG# 0.44 K/uL (0.00-0.02); LYMPH % 2.9 %; LYMPH ABS # 0.33 K/uL (1.2-3.4); MONO % 8.2 %; MONO ABS # 0.92 K/uL (0.11-0.59); NEUT % 84.1 %; NEUT ABS # 9.42 K/uL (1.4-6.5)
[2017-10-23 10:58] LABS: PTT PATIENT 31.8 SECONDS (21.0-31.0)
[2017-10-23] MEDS: PIPERACILL/TAZOBAC IV 3.375 GM in DEXTROSE 5% 100ML 100 ML IV SCH (11:54)
[2017-10-23] MEDS: HEPARIN 25,000 UNIT/500ML D5W 500 ML IV PRN (12:04)
[2017-10-23] MEDS: AMOXICILLIN/CLAVULANATE TAB 500 MG TAB PO SCH (16:57)
--- NOTE | 2017-10-23 18:18 | Progress Note ---
Medicine Progress Note Date & Time of Visit: Oct 23, 2017 at 18:13. Subjective Pt was seen and examined Lying in bed with no distress Pt said that she would like to go home has been very calm Denies any chest pain, palpitation and SOB Objective Last 8 Hrs Date Time Temp Pulse Resp B/P (MAP) Pulse Ox O2 Delivery O2 Flow Rate FiO2 10/23/17 15:30 Room Air 10/23/17 12:26 36.6 93 20 109/52 (71) 94 Room Air 10/23/17 12:00 Room Air Physical Exam: General- No acute distress Head- atraumatic Eyes- PERRL, EOMI ENT- oropharynx clear Neck- supple, no JVD Lungs- Poor air entry Heart- irregular rhythm, +murmur Abdomen- normal bowel sounds, soft Extremities- no calf tenderness Neuro- alert, oriented x 3; PERRL Skin- warm & dry Laboratory Results: Last 24 Hours Test 10/23/17 01:47 10/23/17 06:33 10/23/17 10:16 10/23/17 14:06 Troponin I 0.497 ng/ml 0.565 ng/ml 0.354 ng/ml White Blood Count 11.47 K/uL Red Blood Count 4.01 M/uL Hemoglobin 12.8 g/dL Hematocrit 36.8 % Mean Corpuscular Volume 91.8 fL Mean Corpuscular Hemoglobin 31.9 pg Mean Corpuscular Hemoglobin Concent 34.8 g/dl Platelet Count 182 K/uL Mean Platelet Volume 10.0 fL Neutrophils (%) (Auto) 84.1 % Lymphocytes (%) (Auto) 2.9 % Monocytes (%) (Auto) 8.2 % Eosinophils (%) (Auto) 0.6 % Basophils (%) (Auto) 0.3 % Neutrophils # (Auto) 9.42 K/uL Lymphocytes # (Auto) 0.33 K/uL Monocytes # (Auto) 0.92 K/uL Eosinophils # (Auto) 0.07 K/uL Basophils # (Auto) 0.03 K/uL RDW Standard Deviation 51.7 fL RDW Coefficient of Variation 15.5 % Immature Granulocyte % (Auto) 3.9 % Immature Granulocyte # (Auto) 0.44 K/uL Nucleated RBC Absolute Count (auto) 0.00 K/uL Nucleated Red Blood Cells % 0.0 % Sodium Level 134 mmol/L Potassium Level 3.7 mmol/L Chloride Level 100 mmol/L Carbon Dioxide Level 21 mmol/L Anion Gap 13.0 mmol/L Blood Urea Nitrogen 24 mg/dl Creatinine 1.34 mg/dl Est Creatinine Clear Calc Drug Dose 23.4 ml/min Estimated GFR () 41.2 Estimated GFR (Non- 35.5 BUN/Creatinine Ratio 17.9 Random Glucose 76 mg/dl Calcium Level 9.0 mg/dl Magnesium Level 2.1 mg/dl Prothrombin Time 9.7 SECONDS Prothromb Time International Ratio 0.9 Activated Partial Thromboplast Time 31.8 SECONDS Partial Thromboplastin Ratio 1.2 Test 10/23/17 18:08 Assessment & Plan AFIB WITH RVR Hx of paroxysmal afib Possible due to anxiety to go home because BP was low, unable to start on cardizem or lopressor Starting on Amiodarone drip/bolus After about 30 minutes, pt was converted back to sinus rhythm with rate control Will run the amiodarone for now and stopped it when receiving her metoprolol [id number] - score about 5 (Age,sex,CVA, HTN) Since pt converted back in less than 30 minutes, not a ch[facility] candidate of anticoagulant due to unsteady gait Will hold on anticoagulant. If converts back to Afib will start on heparin drip Cardiology consult Check Echo Check TSH, Mg Troponin and Potassium Continue monitor in tele 10/23 Convert back to NSR yesterday Amiodarone drip was d/c las night Starting on Po amiodarone No a good candidate of chcf anticoagulant Will start on low dose of heparin drip while in the hospital due to Elevated trop [id number] - score greater than 5 (Age,sex,CVA, HTN) Continue monitor in tele cardio on board PNEUMONIA CXR on admission showed left lower lobe infiltrate. Elevated WBC Blood cultures no growth Received intravenous piperacillin/tazobactam and Vanco in the ED Continue IV Zosyn Monitor CBC Clinically improved UTI Urine cx growth gram negative bacilli- Growth E-coli and Klebsiella On IV Zosyn Abx change to amoxicillin . DIARRHEA No more episode of diarrhea Stool for C-diff negative Daughter said pt has diarrhea twice a week and constipated for the other days HYPOTENSION BP was low in the ER Resolved ABNORMAL EKG / ELEVATED TROPONIN Troponin was 0.051 on admission Possible related to infection vs dehydration EKG shows inferolateral T-wave changes. Repeat trop trending down to normal denies any chest pain Continue metoprolol, aspirin and statin. HYPERTENSION BP elevated Metoprolol increased back to 50mg BID hydrochlorothiazide on hold Resume lisinopril Starting on IV hydralazine prn Continue monitor BP 10/22 BP was low Lisinopril and HCTZ on hold Continue monitor BP CKD III Serum creatinine 1.59 on admission Received IV fluids. Creatine improved to 1.33 GOUT Continue allopurinol and prednisone. Stable RESUSCITATION STATUS FULL CODE VTE PROPHYLAXIS Nonambulatory. heparin drip DISPOSITION Will discharge once medically stable Current Inpatient Medications: Current Inpatient Medications Medications (Trade) Dose Ordered Sig/Alicia Route Start Time Stop Time Status Last Admin Dose Admin Ondansetron HCl (Zofran Inj) 4 mg Q6H PRN IV 10/19/17 16:30 11/18/17 16:29 Allopurinol (Zyloprim Tab) 100 mg QAM PO 10/20/17 09:00 11/19/17 08:59 10/23/17 08:53 100 MG Gabapentin (Neurontin Cap) 300 mg TID PO 10/19/17 21:00 11/18/17 20:59 10/23/17 14:00 300 MG Acetaminophen/ Hydrocodone Bitart ([place] 5/325 Tab) 1 tab Q6H PRN PO 10/19/17 16:30 11/02/17 16:29 10/23/17 10:54 1 TAB Pantoprazole Sodium (Protonix Tab) 40 mg QAM PO 10/20/17 09:00 11/19/17 08:59 10/23/17 08:53 40 MG Pravastatin Sodium (Pravachol Tab) 40 mg HS PO 10/19/17 21:00 11/18/17 20:59 10/22/17 20:49 40 MG Prednisone (PredniSONE TAB) 10 mg DAILY PO 10/20/17 09:00 11/19/17 08:59 10/23/17 08:53 10 MG Aspirin (Ecotrin Tab) 81 mg QAM PO 10/20/17 09:00 11/19/17 08:59 10/23/17 08:53 81 MG Hydralazine HCl (HydrALAZINE INJ) 5 mg Q4 PRN IV. 10/21/17 21:15 11/20/17 21:14 10/23/17 04:18 5 MG Tramadol HCl (Ultram Tab) 25 mg Q6H PRN PO 10/22/17 05:30 11/21/17 05:29 10/22/17 06:02 25 MG Acetaminophen (Tylenol Tab) 650 mg Q6H PRN PO 10/22/17 05:30 11/21/17 05:29 Lisinopril (Zestril Tab) 20 mg QAM PO 10/23/17 09:00 11/21/17 08:59 Metoprolol Tartrate (Lopressor Tab) 50 mg BID PO 10/22/17 21:00 11/21/17 08:59 Future hold 10/22/17 20:49 50 MG Amiodarone HCl (Cordarone Tab) 400 mg TIDM PO 10/23/17 11:30 11/22/17 11:29 10/23/17 16:46 400 MG Heparin Sodium/ Dextrose 500 ml @ 12 mls/hr Q24H PRN IV 10/23/17 11:00 11/22/17 10:59 10/23/17 12:04 12 MLS/HR Amoxicillin/ Clavulanate Potassium (Augmentin Tab) 500 mg BIDM PO 10/23/17 16:45 10/26/17 16:45 10/23/17 16:57 500 MG
[2017-10-23 18:43] LABS: PTT PATIENT 75.3 SECONDS (21.0-31.0)
[2017-10-23] MEDS: PRAVASTATIN SOD 40 MG TAB PO SCH (21:37)
[2017-10-24] VITALS (23 sets, daily range): BP systolic 49–168; BP diastolic 30–92; PULSE 57–77; TEMP 36.3–36.9; O2SAT 93–98
[2017-10-24 01:19] LABS: PTT PATIENT 64.4 SECONDS (21.0-31.0)
[2017-10-24 05:51] LABS: CALCIUM 8.1 mg/dl (8.5-10.1); CREATININE 1.68 mg/dl (0.60-1.20); HEMATOCRIT 34.4 % (37-47); HEMOGLOBIN 11.8 g/dL (12.0-16.0); MEAN CORPUSCULAR HEMOGLOBIN 31.6 pg (25-34); MEAN CORPUSCULAR HGB CONC 34.3 g/dl (32-36); MEAN PLATELET VOLUME 9.7 fL (7.4-10.4); PLATELET COUNT 168 K/uL (130-400); POTASSIUM 3.8 mmol/L (3.5-5.1); RED CELL DISTRIBUTION WIDTH CV 15.7 % (11.5-14.5); RED CELL DISTRIBUTION WIDTH SD 52.5 fL (36.4-46.3); WHITE BLOOD COUNT 7.48 K/uL (4.8-10.8)
[2017-10-24] MEDS ORDERED: POTASSIUM CHLORIDE 10 MEQ TABCR PO STA (06:02)
[2017-10-24 06:18] LABS: BASO % 0.5 %; BASO ABS # 0.04 K/uL (0-0.2); EOS % 0.8 %; EOS ABS # 0.06 K/uL (0-0.5); IG# 0.64 K/uL (0.00-0.02); LYMPH % 11.2 %; LYMPH ABS # 0.84 K/uL (1.2-3.4); MONO ABS # 0.67 K/uL (0.11-0.59); NEUT % 69.9 %; NEUT ABS # 5.23 K/uL (1.4-6.5)
[2017-10-24 06:22] LABS: PTT PATIENT 66.1 SECONDS (21.0-31.0)
[2017-10-24] MEDS: GABAPENTIN 300 MG CAP PO SCH ×3 (08:41→23:17)
[2017-10-24] MEDS: ASPIRIN 81 MG ECTAB PO SCH (08:42)
[2017-10-24] MEDS: METOPROLOL TARTRATE 50 MG TAB PO SCH (08:42)
[2017-10-24] MEDS: ALLOPURINOL 100 MG TAB PO SCH (08:42)
[2017-10-24] MEDS: PANTOprazole SOD 40 MG TAB PO SCH (08:42)
[2017-10-24] MEDS: LISINOPRIL 20 MG TAB PO SCH (08:42)
[2017-10-24] MEDS: AMIODARONE 200 MG TAB PO SCH ×3 (08:43→16:47)
[2017-10-24] MEDS: AMOXICILLIN/CLAVULANATE TAB 500 MG TAB PO SCH ×2 (08:43→16:47)
[2017-10-24] MEDS: ACETAMINOPHEN 325 MG TAB PO PRN ×2 (08:52→15:04)
--- NOTE | 2017-10-24 10:37 | Cardiology Follow-Up ---
Subjective Subjective Date of Service: Oct 24, 2017. Pt evaluation today including: conversation w/ patient, conversation w/ family , physical exam, chart review, lab review, review of studies, review of inpatient medication list Additional Details: The patient has no new complaints this morning. She had a run of atrial fibrillation with heart rates in the 120s for about 2 hours early this morning. She was asymptomatic and now has returned to normal sinus rhythm. Problem List Medical Problems: (1) Acute renal failure Status: Acute (2) Cellulitis of left foot Status: Acute (3) Dehydration Status: Acute (4) Hypotension Status: Acute (5) Sepsis Status: Acute Review of Systems Musculoskeletal: + see HPI Female : + see HPI Psychiatric: + anxiety Objective Vital Signs Last Vital Signs Documentation Date Time Temp Pulse Resp B/P (MAP) Pulse Ox O2 Delivery O2 Flow Rate FiO2 10/24/17 08:21 36.4 76 28 164/90 (114) 98 Room Air 10/21/17 04:00 2.0 Physical Exam: General Appearance: no apparent distress ENT: normal ENT inspection, hearing grossly normal, pharynx normal Neck: thyroid normal, no JVD Respiratory/Chest: lungs clear, no respiratory distress, no accessory muscle use Cardiovascular: regular rate, rhythm, no edema, no murmur, + tachycardia Abdomen: normal bowel sounds, non tender, soft, no organomegaly Extremities: normal inspection, no pedal edema Neurologic/Psychiatric: alert, normal mood/affect, + motor weakness Skin: normal color, warm/dry, no rash Lymphatic: no adenopathy Assessment and Plan Impression: 1. Paroxysmal atrial fibrillation 2. Dementia 3. Pneumonia, UTI, diarrhea 4. Chronic kidney disease 5. History of previous stroke Recommendations: At this point the patient is clinically stable. I would continue to load her with amiodarone. Medications: Current Inpatient Medications Medications (Trade) Dose Ordered Sig/Alicia Route Start Time Stop Time Status Last Admin Dose Admin Ondansetron HCl (Zofran Inj) 4 mg Q6H PRN IV 10/19/17 16:30 11/18/17 16:29 Allopurinol (Zyloprim Tab) 100 mg QAM PO 10/20/17 09:00 11/19/17 08:59 10/24/17 08:42 100 MG Gabapentin (Neurontin Cap) 300 mg TID PO 10/19/17 21:00 11/18/17 20:59 10/24/17 08:41 300 MG Acetaminophen/ Hydrocodone Bitart ([place] 5/325 Tab) 1 tab Q6H PRN PO 10/19/17 16:30 11/02/17 16:29 10/23/17 10:54 1 TAB Pantoprazole Sodium (Protonix Tab) 40 mg QAM PO 10/20/17 09:00 11/19/17 08:59 10/24/17 08:42 40 MG Pravastatin Sodium (Pravachol Tab) 40 mg HS PO 10/19/17 21:00 11/18/17 20:59 10/23/17 21:37 40 MG Prednisone (PredniSONE TAB) 10 mg DAILY PO 10/20/17 09:00 11/19/17 08:59 10/24/17 08:43 10 MG Aspirin (Ecotrin Tab) 81 mg QAM PO 10/20/17 09:00 11/19/17 08:59 10/24/17 08:42 81 MG Hydralazine HCl (HydrALAZINE INJ) 5 mg Q4 PRN IV. 10/21/17 21:15 11/20/17 21:14 10/23/17 04:18 5 MG Tramadol HCl (Ultram Tab) 25 mg Q6H PRN PO 10/22/17 05:30 11/21/17 05:29 10/22/17 06:02 25 MG Acetaminophen (Tylenol Tab) 650 mg Q6H PRN PO 10/22/17 05:30 11/21/17 05:29 10/24/17 08:52 650 MG Lisinopril (Zestril Tab) 20 mg QAM PO 10/23/17 09:00 11/21/17 08:59 10/24/17 08:42 20 MG Metoprolol Tartrate (Lopressor Tab) 50 mg BID PO 10/22/17 21:00 11/21/17 08:59 Future hold 10/24/17 08:42 50 MG Amiodarone HCl (Cordarone Tab) 400 mg TIDM PO 10/23/17 11:30 11/22/17 11:29 10/24/17 08:43 400 MG Heparin Sodium/ Dextrose 500 ml @ 11 mls/hr Q24H PRN IV 10/23/17 11:00 11/22/17 10:59 10/23/17 12:04 12 MLS/HR Amoxicillin/ Clavulanate Potassium (Augmentin Tab) 500 mg BIDM PO 10/23/17 16:45 10/26/17 16:45 10/24/17 08:43 500 MG Lab Results: Last 24 Hours Test 10/23/17 14:06 10/23/17 18:08 10/24/17 00:26 10/24/17 05:14 Troponin I 0.354 ng/ml Activated Partial Thromboplast Time 75.3 SECONDS 64.4 SECONDS 66.1 SECONDS Partial Thromboplastin Ratio 2.9 2.5 2.5 White Blood Count 7.48 K/uL Red Blood Count 3.74 M/uL Hemoglobin 11.8 g/dL Hematocrit 34.4 % Mean Corpuscular Volume 92.0 fL Mean Corpuscular Hemoglobin 31.6 pg Mean Corpuscular Hemoglobin Concent 34.3 g/dl Platelet Count 168 K/uL Mean Platelet Volume 9.7 fL Neutrophils (%) (Auto) 69.9 % Lymphocytes (%) (Auto) 11.2 % Monocytes (%) (Auto) 9.0 % Eosinophils (%) (Auto) 0.8 % Basophils (%) (Auto) 0.5 % Neutrophils # (Auto) 5.23 K/uL Lymphocytes # (Auto) 0.84 K/uL Monocytes # (Auto) 0.67 K/uL Eosinophils # (Auto) 0.06 K/uL Basophils # (Auto) 0.04 K/uL RDW Standard Deviation 52.5 fL RDW Coefficient of Variation 15.7 % Immature Granulocyte % (Auto) 8.6 % Immature Granulocyte # (Auto) 0.64 K/uL Echinocytes 1+ Sodium Level 132 mmol/L Potassium Level 3.8 mmol/L Chloride Level 99 mmol/L Carbon Dioxide Level 22 mmol/L Anion Gap 11.0 mmol/L Blood Urea Nitrogen 31 mg/dl Creatinine 1.68 mg/dl Est Creatinine Clear Calc Drug Dose 18.7 ml/min Estimated GFR () 31.3 Estimated GFR (Non- 27.0 BUN/Creatinine Ratio 18.7 Random Glucose 82 mg/dl Calcium Level 8.1 mg/dl Magnesium Level 2.1 mg/dl
--- NOTE | 2017-10-24 16:50 | Progress Note ---
Medicine Progress Note Date & Time of Visit: Oct 24, 2017 at 16:42. Subjective Pt was seen and examined Lying in bed with no distress Pt said that she feels fine She asked for help to used the bedpan She had a run of Afib early this morning Denies any chest pain, palpitation and SOB Objective Last 8 Hrs Date Time Temp Pulse Resp B/P (MAP) Pulse Ox O2 Delivery O2 Flow Rate FiO2 10/24/17 15:09 36.7 68 20 149/60 (89) 96 Room Air 10/24/17 12:15 36.4 62 16 164/90 (114) 93 Room Air 10/24/17 12:00 Room Air Physical Exam: General- No acute distress Head- atraumatic Eyes- PERRL, EOMI ENT- oropharynx clear Neck- supple, no JVD Lungs- Poor air entry Heart- irregular rhythm, +murmur Abdomen- normal bowel sounds, soft Extremities- no calf tenderness Neuro- alert, oriented x 3; PERRL Skin- warm & dry Laboratory Results: Last 24 Hours Test 10/23/17 18:08 10/24/17 00:26 10/24/17 05:14 Activated Partial Thromboplast Time 75.3 SECONDS 64.4 SECONDS 66.1 SECONDS Partial Thromboplastin Ratio 2.9 2.5 2.5 White Blood Count 7.48 K/uL Red Blood Count 3.74 M/uL Hemoglobin 11.8 g/dL Hematocrit 34.4 % Mean Corpuscular Volume 92.0 fL Mean Corpuscular Hemoglobin 31.6 pg Mean Corpuscular Hemoglobin Concent 34.3 g/dl Platelet Count 168 K/uL Mean Platelet Volume 9.7 fL Neutrophils (%) (Auto) 69.9 % Lymphocytes (%) (Auto) 11.2 % Monocytes (%) (Auto) 9.0 % Eosinophils (%) (Auto) 0.8 % Basophils (%) (Auto) 0.5 % Neutrophils # (Auto) 5.23 K/uL Lymphocytes # (Auto) 0.84 K/uL Monocytes # (Auto) 0.67 K/uL Eosinophils # (Auto) 0.06 K/uL Basophils # (Auto) 0.04 K/uL RDW Standard Deviation 52.5 fL RDW Coefficient of Variation 15.7 % Immature Granulocyte % (Auto) 8.6 % Immature Granulocyte # (Auto) 0.64 K/uL Echinocytes 1+ Sodium Level 132 mmol/L Potassium Level 3.8 mmol/L Chloride Level 99 mmol/L Carbon Dioxide Level 22 mmol/L Anion Gap 11.0 mmol/L Blood Urea Nitrogen 31 mg/dl Creatinine 1.68 mg/dl Est Creatinine Clear Calc Drug Dose 18.7 ml/min Estimated GFR () 31.3 Estimated GFR (Non- 27.0 BUN/Creatinine Ratio 18.7 Random Glucose 82 mg/dl Calcium Level 8.1 mg/dl Magnesium Level 2.1 mg/dl Assessment & Plan AFIB WITH RVR Hx of paroxysmal afib Possible due to anxiety to go home because BP was low, unable to start on cardizem or lopressor Starting on Amiodarone drip/bolus After about 30 minutes, pt was converted back to sinus rhythm with rate control Will run the amiodarone for now and stopped it when receiving her metoprolol [id number] - score about 5 (Age,sex,CVA, HTN) Since pt converted back in less than 30 minutes, not a long-term candidate of anticoagulant due to unsteady gait Will hold on anticoagulant. If converts back to Afib will start on heparin drip Cardiology consult Check Echo Check TSH, Mg Troponin and Potassium Continue monitor in tele 3/ Paroxysmal afib Had a ran of Afib early this morning with HR in 120 Convert back to NSR Rate is control Amiodarone drip was d/c las night Amiodarone increased to 400 mg TID by cardiology No a good candidate of long-term anticoagulant Continue low dose of heparin drip while in the hospital due [id number] - score greater than 5 (Age,sex,CVA, HTN) Continue monitor in tele cardio on board PNEUMONIA CXR on admission showed left lower lobe infiltrate. Elevated WBC Blood cultures no growth Received intravenous piperacillin/tazobactam and Vanco in the ED Continue IV Zosyn Monitor CBC Clinically improved Abx changed to amoxicillin UTI Urine cx growth gram negative bacilli Growth E-coli and Klebsiella On IV Zosyn Abx change to amoxicillin . DIARRHEA No more episode of diarrhea Stool for C-diff negative Daughter said pt has diarrhea twice a week and constipated for the other days HYPOTENSION BP was low in the ER Resolved ABNORMAL EKG / ELEVATED TROPONIN Troponin was 0.051 on admission Possible related to infection vs dehydration EKG shows inferolateral T-wave changes. Repeat trop trending down to normal denies any chest pain Continue metoprolol, aspirin and statin. HYPERTENSION BP elevated Metoprolol increased back to 50mg BID hydrochlorothiazide on hold Resume lisinopril Starting on IV hydralazine prn Continue monitor BP 3/4 BP starting to increase Lisinopril and HCTZ on hold due to elevated creatine Continue monitor BP CKD III Serum creatinine 1.59 on admission Received IV fluids. Creatine worsening today Will give [id number] IVF monitor BMP GOUT Continue allopurinol and prednisone. Stable RESUSCITATION STATUS FULL CODE VTE PROPHYLAXIS Nonambulatory. heparin drip DISPOSITION Will discharge once medically stable Current Inpatient Medications: Current Inpatient Medications Medications (Trade) Dose Ordered Sig/Alicia Route Start Time Stop Time Status Last Admin Dose Admin Ondansetron HCl (Zofran Inj) 4 mg Q6H PRN IV 10/19/17 16:30 11/18/17 16:29 Allopurinol (Zyloprim Tab) 100 mg QAM PO 10/20/17 09:00 11/19/17 08:59 10/24/17 08:42 100 MG Gabapentin (Neurontin Cap) 300 mg TID PO 10/19/17 21:00 11/18/17 20:59 10/24/17 13:57 300 MG Acetaminophen/ Hydrocodone Bitart ([place] 5/325 Tab) 1 tab Q6H PRN PO 10/19/17 16:30 11/02/17 16:29 10/23/17 10:54 1 TAB Pantoprazole Sodium (Protonix Tab) 40 mg QAM PO 10/20/17 09:00 11/19/17 08:59 10/24/17 08:42 40 MG Pravastatin Sodium (Pravachol Tab) 40 mg HS PO 10/19/17 21:00 11/18/17 20:59 10/23/17 21:37 40 MG Prednisone (PredniSONE TAB) 10 mg DAILY PO 10/20/17 09:00 11/19/17 08:59 10/24/17 08:43 10 MG Aspirin (Ecotrin Tab) 81 mg QAM PO 10/20/17 09:00 11/19/17 08:59 10/24/17 08:42 81 MG Hydralazine HCl (HydrALAZINE INJ) 5 mg Q4 PRN IV. 10/21/17 21:15 11/20/17 21:14 10/23/17 04:18 5 MG Tramadol HCl (Ultram Tab) 25 mg Q6H PRN PO 10/22/17 05:30 11/21/17 05:29 10/22/17 06:02 25 MG Acetaminophen (Tylenol Tab) 650 mg Q6H PRN PO 10/22/17 05:30 11/21/17 05:29 10/24/17 15:04 650 MG Lisinopril (Zestril Tab) 20 mg QAM PO 10/23/17 09:00 11/21/17 08:59 10/24/17 08:42 20 MG Metoprolol Tartrate (Lopressor Tab) 50 mg BID PO 10/22/17 21:00 11/21/17 08:59 Future hold 10/24/17 08:42 50 MG Amiodarone HCl (Cordarone Tab) 400 mg TIDM PO 10/23/17 11:30 11/22/17 11:29 10/24/17 12:07 400 MG Heparin Sodium/ Dextrose 500 ml @ 11 mls/hr Q24H PRN IV 10/23/17 11:00 11/22/17 10:59 10/23/17 12:04 12 MLS/HR Amoxicillin/ Clavulanate Potassium (Augmentin Tab) 500 mg BIDM PO 10/23/17 16:45 10/26/17 16:45 10/24/17 08:43 500 MG
[2017-10-24] MEDS ORDERED: DOCUSATE SODIUM 100 MG CAP PO PRN (19:00)
[2017-10-24] MEDS ORDERED: SODIUM CHLORIDE 0.9% 500ML 500 ML IV SCH (19:00)
[2017-10-24] MEDS ORDERED: SODIUM CHLORIDE 0.9% 1000ML 1,000 ML IV STA (20:05)
[2017-10-24 20:25] LABS: HEMATOCRIT 31.5 % (37-47); HEMOGLOBIN 10.6 g/dL (12.0-16.0); MEAN CELL VOLUME 92.6 fL (80-100); MEAN CORPUSCULAR HEMOGLOBIN 31.2 pg (25-34); MEAN CORPUSCULAR HGB CONC 33.7 g/dl (32-36); MEAN PLATELET VOLUME 9.5 fL (7.4-10.4); PLATELET COUNT 165 K/uL (130-400); RED CELL DISTRIBUTION WIDTH CV 15.4 % (11.5-14.5); RED CELL DISTRIBUTION WIDTH SD 52.2 fL (36.4-46.3); WHITE BLOOD COUNT 6.46 K/uL (4.8-10.8)
[2017-10-24] MEDS ORDERED: ALBUMIN HUMAN 25% 12.5 GM/50 ML VIAL IV ONE (20:30)
--- NOTE | 2017-10-24 20:33 | DIAGNOSTIC IMAGING REPORT ---
SINGLE VIEW CHEST CLINICAL HISTORY: Cough and wheezing. FINDINGS: An AP, portable, semierect chest radiograph is compared to study dated 10/19/2017. The examination is significantly degraded by portable technique and patient rotation. The heart is enlarged and there is atherosclerotic calcification of the thoracic aorta. The pulmonary vasculature is noncongested. Chronic interstitial thickening is similar to previous. Left basilar consolidation persists. No large pleural effusion or pneumothorax is seen. The skeletal structures are osteopenic. Degenerative change is noted in the shoulders and thoracic spine. IMPRESSION: 1. Cardiomegaly without radiographic evidence of congestive failure. 2. Left basilar consolidation persists. Correlate clinically for evidence of pneumonia. Electronically signed by: Hector Thakkar M.D. 10/24/2017 8:32 PM Dictated Date/Time: 10/24/2017 8:29 PM
[2017-10-24 21:13] LABS: CALCIUM 7.2 mg/dl (8.5-10.1); CREATININE 1.93 mg/dl (0.60-1.20); POTASSIUM 4.4 mmol/L (3.5-5.1)
--- NOTE | 2017-10-24 21:26 | Progress Note ---
Internal Med Progress Note Date of Service: Oct 24, 2017. Provider Documentation: SUBJECTIVE: 10/24/17 Made aware by RN around 7:50 PM of hypotension. SBP 40-60s SBP 100s after 1 L NSS given OBJECTIVE: Vital Signs-as noted below Exam: General-frail, disoriented, occ coughing, no resp distress HEENT -pale palp conjunctivae, dry buccal mucosa Neck-supple, short Lungs-occ wheeze Heart- RRR Abdomen-distension, NT Extremities-min LE edema, no tenderness NE disoriented crea 1.93 from 1.68 lactic acid 2.1 CXR L consolidation present 10/19 AP Hypotension secondary to hypovolemia, ARF on CRI Prompt BP response to IVF bolus Baseline UA monitor creatinine response to IVF Hold antihypertensives for now. 10/25/17 245AM Made aware by RN of SBP 40s, O2 sats 80s moist cough as per RN decreased patient responsiveness Occasional coughing with meals at home as per daughter. lactic acid normal abnormal procalcitonin CXR same L pneumonia AP Recurrent hypotension Possible adrenal insufficiency, hx chronic steroid Rx ro cardiac dysfunction Hypoxemic respiratory failure 2 to possible recurrent aspiration, possible sepsis Encephalopathy secondary to illness, narcotics/neuro psychotropics contributory Supplemental O2 Baseline ABG IVF bolus Decadron trial Nebs CS, IV Zosyn, Vancomycin; stop Augmentin Aspiration precautions, swallow eval Hold Vicodin, Gabapentin; Narcan trial TTE RE hyportension SBPs 100 at 345 AM. 4-6 AM SBP 60-100s from O2 sats 88RA, 90s 2L Patient requiring suctioning of respiratory secretions multiple times as per RN. . 6 AM ICU transfer as per Telemetry staff request IV Hydrocortisone [id number] for now, DC prednisone Case d/w Dr. 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 Patient's daughter, Miss Brook Davis, updated of developments over the phone. Will relay overnight events to AM provider. . Vital Signs: Date Time Temp Pulse Resp B/P (MAP) Pulse Ox O2 Delivery O2 Flow Rate FiO2 10/25/17 08:03 77 16 97 Nasal Cannula 2.0 10/25/17 05:31 85 27 109/46 (67) 96 10/25/17 05:28 79 23 108/44 (65) 97 10/25/17 05:26 86 27 112/47 (68) 96 10/25/17 05:16 83 16 69/58 (62) 92 10/25/17 05:11 81 20 99/47 (64) 94 10/25/17 05:06 81 21 93/45 (61) 96 10/25/17 04:56 75 20 82/45 (57) 93 10/25/17 04:55 75 19 88/41 (57) 93 10/25/17 04:51 75 20 77/39 (52) 92 10/25/17 04:46 73 21 79/39 (52) 88 10/25/17 04:41 75 20 78/37 (51) 86 10/25/17 04:41 75 20 78/37 (51) 86 10/25/17 04:38 75 23 79/53 (62) 91 10/25/17 04:36 80 21 81/43 (56) 93 10/25/17 04:31 88 23 94/44 (61) 94 10/25/17 04:26 90 19 100/45 (63) 98 10/25/17 04:21 86 22 96/46 (63) 96 10/25/17 04:16 88 32 93/46 (62) 98 10/25/17 04:11 77 21 80/46 (57) 92 10/25/17 04:10 76 20 80/38 (52) 94 10/25/17 04:06 78 23 84/41 (55) 92 10/25/17 04:01 85 26 77/56 (63) 95 10/25/17 04:00 98 Nasal Cannula 2.0 10/25/17 03:56 87 21 84/44 (57) 96 10/25/17 03:51 86 25 90/44 (59) 91 10/25/17 03:46 88 23 101/44 (63) 96 10/25/17 03:41 89 26 86/49 (61) 92 10/25/17 03:38 88 16 87/42 (57) 93 10/25/17 03:36 88 25 87/44 (58) 93 10/25/17 03:31 88 25 92/58 (69) 93 10/25/17 03:29 36.7 85 26 10/25/17 00:39 37.0 92 26 122/63 (82) 91 Room Air 10/25/17 00:00 95 Room Air 10/24/17 21:31 69 36 122/58 (79) 10/24/17 21:12 77 31 152/89 (110) 10/24/17 21:06 77 35 168/92 (117) 10/24/17 20:57 76 33 75/39 (51) 10/24/17 20:53 72 32 102/64 (77) 10/24/17 20:46 67 35 131/78 (95) 10/24/17 20:41 62 29 104/51 (68) 10/24/17 20:36 59 34 95/43 (60) 10/24/17 20:31 61 28 86/40 (55) 10/24/17 20:26 62 23 92/43 (59) 10/24/17 20:21 66 26 92/44 (60) 10/24/17 20:02 36.3 62 25 72/35 (47) 10/24/17 20:01 63 26 68/35 (46) 10/24/17 20:00 Room Air 10/24/17 19:52 62 35 61/37 (45) 10/24/17 19:49 62 31 58/32 (41) 10/24/17 19:47 60 29 49/30 (36) 10/24/17 19:42 60 35 49/31 (37) 10/24/17 19:39 59 28 66/32 (43) 10/24/17 16:00 Room Air 10/24/17 15:09 36.7 68 20 149/60 (89) 96 Room Air 10/24/17 12:15 36.4 62 16 164/90 (114) 93 Room Air 10/24/17 12:00 Room Air Lab Results: Results Past 24 Hours Test 10/24/17 20:12 10/25/17 00:27 10/25/17 03:24 10/25/17 04:55 Range/Units White Blood Count 6.46 17.69 4.8-10.8 K/uL Red Blood Count 3.40 2.99 4.2-5.4 M/uL Hemoglobin 10.6 9.3 12.0-16.0 g/dL Hematocrit 31.5 27.5 37-47 % Mean Corpuscular Volume 92.6 92.0 80-100 fL Mean Corpuscular Hemoglobin 31.2 31.1 25-34 pg Mean Corpuscular Hemoglobin Concent 33.7 33.8 32-36 g/dl Platelet Count 165 133 130-400 K/uL Mean Platelet Volume 9.5 9.1 7.4-10.4 fL RDW Standard Deviation 52.2 51.9 36.4-46.3 fL RDW Coefficient of Variation 15.4 15.4 11.5-14.5 % Neutrophils % (Manual) 85.0 96.4 % Lymphocytes % (Manual) 5.0 0.9 % Monocytes % (Manual) 2.0 1.8 % Eosinophils % (Manual) 1.0 % Metamyelocytes % 5.0 0.9 % Myelocytes % 2.0 % Neutrophils # (Manual) 5.49 17.05 1.4-6.5 K/uL Total Absolute Neutrophils 5.49 17.05 1.4-6.5 K/uL Lymphocytes # (Manual) 0.32 0.16 1.2-3.4 K/uL Total Absolute Lymphocytes 0.32 0.16 1.2-3.4 K/uL Monocytes # (Manual) 0.13 0.32 0.11-0.59 K/uL Eosinophils # (Manual) 0.06 0-0.5 K/uL Metamyelocytes # 0.32 0.16 0-0 K/uL Myelocytes # 0.13 0-0 K/uL Echinocytes 1+ 1+ Sodium Level 131 131 136-145 mmol/L Potassium Level 4.4 3.5 3.5-5.1 mmol/L Chloride Level 102 104 98-107 mmol/L Carbon Dioxide Level 17 14 21-32 mmol/L Anion Gap 12.0 13.0 3-11 mmol/L Blood Urea Nitrogen 35 34 7-18 mg/dl Creatinine 1.93 1.77 0.60-1.20 mg/dl Est Creatinine Clear Calc Drug Dose 16.2 17.7 ml/min Estimated GFR () 26.5 29.4 Estimated GFR (Non- 22.9 25.4 BUN/Creatinine Ratio 18.1 19.4 10-20 Random Glucose 126 85 70-99 mg/dl Lactic Acid Level 2.1 1.0 1.0 0.4-2.0 mmol/L Calcium Level 7.2 6.8 8.5-10.1 mg/dl Magnesium Level 1.9 1.5 1.8-2.4 mg/dl Hyposegmented Neutrophils 1+ Toxic Vacuolation 3+ Activated Partial Thromboplast Time 53.7 21.0-31.0 SECONDS Partial Thromboplastin Ratio 2.1 Arterial Blood pH 7.37 7.35-7.45 Arterial Blood Partial Pressure CO2 27 35-46 mmHg Arterial Blood Partial Pressure O2 70 80-95 mm/Hg Arterial Blood HCO3 15 19-24 mmol/L Arterial Blood Oxygen Saturation 91.1 90-95 % Arterial Blood Base Excess -8.8 -9-1.8 mEq/L Arterial Blood Gas Delivery 2 L Joseph Test POS POS Total Bilirubin 0.3 0.2-1 mg/dl Direct Bilirubin 0.1 0-0.2 mg/dl Aspartate Amino Transf (AST/SGOT) 15 15-37 U/L Alanine Aminotransferase (ALT/SGPT) 14 12-78 U/L Alkaline Phosphatase 44 45-117 U/L Total Protein 4.7 6.4-8.2 gm/dl Albumin 2.4 3.4-5.0 gm/dl Procalcitonin 41.78 0-0.5 ng/ml Test 10/25/17 08:09 10/25/17 09:50 Range/Units Troponin I 0.140 0-0.045 ng/ml Urine Color YELLOW Urine Appearance CLOUDY CLEAR Urine pH 5.0 4.5-7.5 Urine Specific [place] 1.013 1.000-1.030 Urine Protein NEG NEG Urine Glucose (UA) NEG NEG Urine Ketones NEG NEG Urine Occult Blood NEG NEG Urine Nitrite NEG NEG Urine Bilirubin NEG NEG Urine Urobilinogen NEG NEG Urine Leukocyte Esterase NEG NEG Urine WBC (Auto) 1-5 0-5 /hpf Urine RBC (Auto) 5-10 0-4 /hpf Urine Hyaline Casts (Auto) 1-5 0-5 /lpf Urine Epithelial Cells (Auto) 5-10 0-5 /lpf Urine Bacteria (Auto) NEG NEG Urine Random Creatinine 41.0 mg/dl Urine Random Sodium 19 mEq/L Microbiology Results 10/24/17 Blood Culture, Received Pending 10/24/17 Blood Culture, Received Pending 10/25/17 MRSA DNA Surveillance Screen - Final, Complete Specimen Negative for MRSA by DNA Probe 10/24/17 C.difficile Toxin B Gene (PCR) - Final, Complete No C. difficile toxin B gene detected 10/24/17 WBC Smear - Final, Resulted 10/24/17 Shiga Toxin Test, Resulted Pending 10/24/17 Stool Culture, Resulted Pending 10/25/17 Gram Stain, Daniela Batch Pending 10/25/17 Sputum Culture, Daniela Batch Pending 10/25/17 Urine Culture, Daniela Batch Pending
--- NOTE | 2017-10-24 22:35 | DIAGNOSTIC IMAGING REPORT ---
CT SCAN OF THE BRAIN WITHOUT IV CONTRAST CLINICAL HISTORY: Change in mental status. COMPARISON STUDY: CT of the brain dated 04/16/2017. TECHNIQUE: Unenhanced axial CT scan of the brain is performed from the vertex to the skull base. A dose lowering technique was utilized adhering to the principles of ALARA. CT DOSE: 651.12 mGy.cm FINDINGS: Brain parenchyma: There are age-related involutional changes noting mild subcortical and periventricular microangiopathic change. There is no hemorrhage, mass effect, or evidence of acute territorial ischemia by CT criteria. Chang-white matter is preserved. No extra-axial fluid collection is seen. Ventricles, sulci, cisterns: Prominent secondary to involutional change. Intracranial vasculature: There is atherosclerotic calcification of the cavernous carotid and vertebral arteries. Calvarium: Unremarkable. Sinuses and mastoids: The visualized paranasal sinuses are clear. The mastoid air cells are well pneumatized. Orbits: The bony orbits are grossly intact. There is a left ocular lens implant. IMPRESSION: There is no hemorrhage, mass effect, or evidence of acute territorial ischemia by CT criteria. Electronically signed by: Hector Thakkar M.D. 10/24/2017 10:33 PM Dictated Date/Time: 10/24/2017 10:31 PM
[2017-10-24] MEDS ORDERED: SODIUM CHLORIDE 0.9% 1000ML 1,000 ML IV SCH (23:00)
[2017-10-24] MEDS: HYDROCODONE/ACETAMIN 5/325MG TAB PO PRN (23:17)
[2017-10-24] MEDS: PRAVASTATIN SOD 40 MG TAB PO SCH (23:17)
[2017-10-25] VITALS (68 sets, daily range): BP systolic 69–129; BP diastolic 37–74; PULSE 68–92; TEMP 36.5–37; O2SAT 86–100
[2017-10-25] MEDS ORDERED: SODIUM CHLORIDE 0.9% 500ML 500 ML IV ONE (01:15)
[2017-10-25] MEDS ORDERED: LEVALBUTEROL/IPRATROPIUM NEB INH STA ×2 (02:45→06:14)
[2017-10-25] MEDS ORDERED: ALBUMIN HUMAN 25% 12.5 GM/50 ML VIAL IV ONE (02:45)
[2017-10-25] MEDS ORDERED: LEVALBUTEROL/IPRATROPIUM NEB INH PRN (02:45)
[2017-10-25] MEDS ORDERED: DEXAMETHASONE INJ 4 MG in SYRINGE 0 ML IV ONE ×2 (03:00→04:45)
[2017-10-25] MEDS ORDERED: SODIUM CHLORIDE 0.9% 1000ML 1,000 ML IV STA ×2 (03:03→04:43)
[2017-10-25] MEDS ORDERED: LEVALBUTEROL 1.25MG/0.5ML NEB INH STA ×2 (03:14→06:56)
[2017-10-25] MEDS ORDERED: IPRATROPIUM BROMIDE NEB SOLN 0.02% 2.5 ML VIAL INH STA ×2 (03:14→06:56)
[2017-10-25] MEDS ORDERED: IPRATROPIUM BROMIDE NEB SOLN 0.02% 2.5 ML VIAL INH PRN (03:15)
[2017-10-25] MEDS ORDERED: LEVALBUTEROL 1.25MG/0.5ML NEB INH PRN (03:15)
[2017-10-25] MEDS ORDERED: MAGNESIUM SULFATE 1GM / D5W 1 GM in PREMIXED IN D5W 100 ML IV ONE ×2 (03:45→04:15)
[2017-10-25 03:52] LABS: HEMATOCRIT 27.5 % (37-47); HEMOGLOBIN 9.3 g/dL (12.0-16.0); MEAN CORPUSCULAR HEMOGLOBIN 31.1 pg (25-34); MEAN CORPUSCULAR HGB CONC 33.8 g/dl (32-36); MEAN PLATELET VOLUME 9.1 fL (7.4-10.4); PLATELET COUNT 133 K/uL (130-400); RED CELL DISTRIBUTION WIDTH CV 15.4 % (11.5-14.5); RED CELL DISTRIBUTION WIDTH SD 51.9 fL (36.4-46.3); WHITE BLOOD COUNT 17.69 K/uL (4.8-10.8)
[2017-10-25 03:56] LABS: PTT PATIENT 53.7 SECONDS (21.0-31.0)
[2017-10-25 03:59] LABS: CALCIUM 6.8 mg/dl (8.5-10.1); CREATININE 1.77 mg/dl (0.60-1.20); POTASSIUM 3.5 mmol/L (3.5-5.1)
[2017-10-25] MEDS ORDERED: NSS + 20MEQ KCL 1000ML 1,000 ML IV ONE (04:30)
[2017-10-25 04:37] LABS: ALBUMIN 2.4 gm/dl (3.4-5.0); TOTAL PROTEIN 4.7 gm/dl (6.4-8.2)
[2017-10-25] MEDS ORDERED: PIPERACILLIN/TAZOBACTAM 4.5 GM/100ML D5W IV STA (04:45)
[2017-10-25] MEDS ORDERED: CALCIUM GLUCONATE 10% 2,000 MG in SODIUM CHLORIDE 0.9% 50ML 50 ML IV STA (04:47)
[2017-10-25] MEDS ORDERED: NALOXONE HCL 0.4 MG/1 ML VIAL/CARP IV STA (04:52)
[2017-10-25] MEDS ORDERED: PROCHLORPERAZINE INJ 5 MG in SYRINGE 4 ML IV PRN (06:15)
[2017-10-25] MEDS ORDERED: ACETAMINOPHEN 325 MG TAB PO PRN (06:15)
[2017-10-25] MEDS ORDERED: ICU PROTOCOL FOR HYPERGLYCEMIA PRN (06:15)
--- NOTE | 2017-10-25 06:44 | DIAGNOSTIC IMAGING REPORT ---
CHEST ONE VIEW PORTABLE HISTORY: 87 years-old Female resp distress acute respiratory distress with sepsis COMPARISON: Chest radiograph 10/24/2017 TECHNIQUE: Portable AP view of the chest FINDINGS: Cardiac silhouette is again enlarged, unchanged. Atherosclerosis of the aorta. No pneumothorax, pleural effusion or overt pulmonary edema. Mild right hemidiaphragmatic elevation. There is improved aeration of the left lung base with persistent patchy alveolar opacities noted. Bones of the chest appear grossly intact. Degenerative changes are seen within the shoulders and spine. Vascular calcifications are seen within the left upper abdomen. IMPRESSION: 1. Improved aeration of the left lung base with persistent patchy alveolar opacities suspicious for pneumonia. 2. Cardiomegaly without overt pulmonary edema. Software. It may contain grammatical, syntax or spelling errors. Electronically signed by: Joe Soriano M.D. 10/25/2017 6:42 AM Dictated Date/Time: 10/25/2017 6:41 AM
[2017-10-25] MEDS ORDERED: NSS + 20MEQ KCL 1000ML 1,000 ML IV SCH (07:00)
[2017-10-25] MEDS ORDERED: VANCOMYCIN CONSULT ACTIVE PRN (07:00)
[2017-10-25] MEDS: AMIODARONE 200 MG TAB PO SCH ×4 (07:15→16:46)
[2017-10-25] MEDS ORDERED: VANCOMYCIN IV 1,250 MG in SODIUM CHLORIDE 0.9% 250ML 250 ML IV ONE (07:30)
--- NOTE | 2017-10-25 07:39 | DIAGNOSTIC IMAGING REPORT ---
CHEST ONE VIEW PORTABLE CLINICAL HISTORY: 87 years-old Female presenting with gurgling resp. TECHNIQUE: Portable semiupright AP view of the chest was obtained. COMPARISON: 10/25/2017 at 2:53 AM. FINDINGS: Atherosclerosis of aortic arch. Cardiac silhouette mildly enlarged. Pulmonary vascular prominence and hazy perihilar opacities. Mildly low lung volumes with hypoventilatory changes. Right basilar focal nodular opacity. Trace pleural effusions may be present. No pneumothorax. Osteopenia suspected. Splenic arterial calcification. IMPRESSION: 1. Mild cardiomegaly with increased volume overload and possible developing/early pulmonary edema trace bilateral pleural effusions. 2. Focal nodular opacity at the right lung base. This may represent a focal consolidation, diaphragm eventration or costochondral calcification. Further evaluation with dedicated PA and lateral radiographs recommended versus chest CT. The report will be called/faxed according to standard departmental protocol. Electronically signed by: Vel Gallardo M.D. 10/25/2017 7:37 AM Dictated Date/Time: 10/25/2017 7:35 AM
[2017-10-25] MEDS: LEVALBUTEROL 1.25MG/0.5ML NEB INH SCH ×3 (08:02→20:52)
[2017-10-25] MEDS: IPRATROPIUM BROMIDE NEB SOLN 0.02% 2.5 ML VIAL INH SCH ×3 (08:02→20:52)
[2017-10-25] MEDS ORDERED: METOPROLOL TARTRATE 50 MG TAB PO SCH (09:00)
[2017-10-25] MEDS ORDERED: PIPERACILL/TAZOBAC CONSULT ACTIVE PRN (09:00)
[2017-10-25] MEDS: HYDROCORTISONE IV 50 MG in SYRINGE 0 ML IV SCH ×3 (09:14→19:40)
[2017-10-25] MEDS: ASPIRIN 81 MG ECTAB PO SCH (09:16)
[2017-10-25] MEDS: PANTOprazole SOD 40 MG TAB PO SCH (09:16)
[2017-10-25] MEDS: ALLOPURINOL 100 MG TAB PO SCH (09:17)
--- NOTE | 2017-10-25 10:27 | Pharmacy Progress Note ---
Pharmacy Abx Initial Consult Date of Service Oct 25, 2017. Pharmacy Dosing Scope Date of Consult: 10/25/17 Consultation requested by: Dr. Cedeno Pharmacy is consulted to initiate VANCOMYCIN and ZOSYN IV therapy, order appropriate labs and adjust drug dose/frequency. Subjective The patient is a 87 year old female admitted on Oct 19, 2017 at 16:24. Objective Height (Feet): 5 Height (Inches): 2.00 Weight (Kilograms): 53.100 Vital Signs (Past 12Hrs) Vital Signs Past 12 Hours Date Time Temp Pulse Resp B/P (MAP) Pulse Ox O2 Delivery O2 Flow Rate FiO2 10/25/17 08:03 77 16 97 Nasal Cannula 2.0 10/25/17 05:31 85 27 109/46 (67) 96 10/25/17 05:28 79 23 108/44 (65) 97 10/25/17 05:26 86 27 112/47 (68) 96 10/25/17 05:16 83 16 69/58 (62) 92 10/25/17 05:11 81 20 99/47 (64) 94 10/25/17 05:06 81 21 93/45 (61) 96 10/25/17 04:56 75 20 82/45 (57) 93 10/25/17 04:55 75 19 88/41 (57) 93 10/25/17 04:51 75 20 77/39 (52) 92 10/25/17 04:46 73 21 79/39 (52) 88 10/25/17 04:41 75 20 78/37 (51) 86 10/25/17 04:41 75 20 78/37 (51) 86 10/25/17 04:38 75 23 79/53 (62) 91 10/25/17 04:36 80 21 81/43 (56) 93 10/25/17 04:31 88 23 94/44 (61) 94 10/25/17 04:26 90 19 100/45 (63) 98 10/25/17 04:21 86 22 96/46 (63) 96 10/25/17 04:16 88 32 93/46 (62) 98 10/25/17 04:11 77 21 80/46 (57) 92 10/25/17 04:10 76 20 80/38 (52) 94 10/25/17 04:06 78 23 84/41 (55) 92 10/25/17 04:01 85 26 77/56 (63) 95 10/25/17 04:00 98 Nasal Cannula 2.0 10/25/17 03:56 87 21 84/44 (57) 96 10/25/17 03:51 86 25 90/44 (59) 91 10/25/17 03:46 88 23 101/44 (63) 96 10/25/17 03:41 89 26 86/49 (61) 92 10/25/17 03:38 88 16 87/42 (57) 93 10/25/17 03:36 88 25 87/44 (58) 93 10/25/17 03:31 88 25 92/58 (69) 93 10/25/17 03:29 36.7 85 26 10/25/17 00:39 37.0 92 26 122/63 (82) 91 Room Air 10/25/17 00:00 95 Room Air Lab Results (24Hrs) Laboratory Tests (24 Hours) Test 10/25/17 03:24 10/25/17 04:55 Lactic Acid Level 1.0 mmol/L (0.4-2.0) White Blood Count 17.69 K/uL (4.8-10.8) #H Red Blood Count 2.99 M/uL (4.2-5.4) L Hemoglobin 9.3 g/dL (12.0-16.0) L Hematocrit 27.5 % (37-47) L Mean Corpuscular Volume 92.0 fL (80-100) Mean Corpuscular Hemoglobin 31.1 pg (25-34) Mean Corpuscular Hemoglobin Concent 33.8 g/dl (32-36) Platelet Count 133 K/uL (130-400) Mean Platelet Volume 9.1 fL (7.4-10.4) Procalcitonin 41.78 ng/ml (0-0.5) H Micro Results Date/Time Source Procedure Growth Status 10/24/17 21:18 Blood Blood Culture Pending Received 10/24/17 21:07 Blood Blood Culture Pending Received 10/19/17 12:41 Blood Blood Culture - Final NO GROWTH Complete 10/19/17 12:27 Blood Blood Culture - Final NO GROWTH Complete 10/25/17 07:45 Nasal MRSA DNA Surveillance Screen Pending Received 10/19/17 16:52 Nasal MRSA DNA Surveillance Screen - Final Specimen Negative for MRSA by DNA Probe Complete 10/24/17 22:15 Stool C.difficile Toxin B Gene (PCR) - Final No C. difficile toxin B gene detected Complete 10/24/17 22:15 Stool WBC Smear - Final Resulted 10/24/17 22:15 Stool Shiga Toxin Test Pending Resulted 10/24/17 22:15 Stool Stool Culture Pending Resulted 10/25/17 06:14 Sputum Expectorated Sputum Gram Stain Pending Daniela Batch 10/25/17 06:14 Sputum Expectorated Sputum Sputum Culture Pending Daniela Batch 10/19/17 15:21 Urine,Catheterized Urine Culture - Final Escherichia Coli Klebsiella Pneumoniae Complete Risk Factors for Resistance * Hospitalization for 48 hours or more within the past 90 days * Current hospitalization > 5 days * Antimicrobial use within the last 90 days (received Zosyn + Vancomycin earlier this admission) Assessment & Plan Assessment * 87 year old female transferred to ICU for hypotension, hypoxemia, and productive cough * IV fluid resuscitation initiated, IV steroids also added in stress dose * Vancomycin + Zosyn IV started empirically. * Of note, this patient received Zosyn IV 10/19 thru 10/23 and was then transitioned to Augmentin PO 10/23 thru 10/24 * Procal 41.78, WBC increased to 17.7, still afebrile, RR 16 - 27 * Patient received ~3 L fluid overnight + Albumin, U.O. decreased despite resuscitation * New BLCX's, sputum cx and nasal swab ordered Plan Vancomycin IV * Loading dose: 1250 mg (~23.5 mg/kg) * Maintenance dose: will defer from ordering a maintenance dose as estimated half-life > 24 hours. Dosing will be based on random levels * Goal trough level for sepsis/pulm infxn : 15 to 20 mcg/mL * Random level ordered for 10/26/17 AM * Plan is to redose when level between 15-20mcg/mL * P'kinetic estimates: Vd 0.7L/kg; half-life ~36 hours Piperacillin/tazobactam * 4.5 g bolus administered over 30 minutes, then 3.375 g IV extended infusion every 12 hours for CrCl 20 mL/min or less and dialysis. * BMI 21.4 Pharmacy will continue to follow and will adjust dose/frequency as necessary. Thank you.
[2017-10-25] MEDS: PIPERACILL/TAZOBAC IV 3.375 GM in DEXTROSE 5% 100ML IV SCH (11:43)
[2017-10-25] MEDS: HEPARIN 25,000 UNIT/500ML D5W 500 ML IV PRN (11:45)
[2017-10-25] MEDS ORDERED: LEVALBUTEROL/IPRATROPIUM NEB INH SCH (12:00)
--- NOTE | 2017-10-25 12:37 | Critical Care Consultation ---
Critical Care Consultation Date of Consultation: Oct 25, 2017. Attending Physician: Mikala Grubbs M.D. Reason for Consultation: Severe sepsis History of Present Illness This is a 87 year old female with h/o paroxysmal a-fib, CVA, poor functional status (bed/chair bound), admitted on 10/19/17 for pneumonia, was also treated for UTI, was transferred to ICU overnight for drop in BP, lethargy. She received approximately 3000 ml of crystalloid bolus, also received naloxone. Started back on Zosyn and Vancomycin. Patient is more awake now, normotensive. States that she feels fine this AM. Family History Diabetes mellitus Hypertension Kidney disease Kidney stones Social History Smoking Status: Never Smoker Alcohol Use: none Drug Use: none Marital Status: Housing Status: lives with family Occupation Status: retired Allergies Coded Allergies: Horse-derived Products (Verified Allergy, Unknown, Tetanus - with horse serum (equine), 10/19/17) NO KNOWN DRUG ALLERGIES (Verified Allergy, Unknown, ., 10/19/17) Home Medications Scheduled Allopurinol (Zyloprim), 100 MG PO QAM Calcium Carbonate-Cholecalcife (Caltrate 600+D), 1 TAB PO BID Ferrous Sulfate (Iron), 325 MG PO BID Gabapentin (Neurontin), 300 MG PO TID Hctz/Lisinopril (Lisinopril/Hctz 20/25 Mg), 1 TAB PO QAM Metoprolol Tartrate (Metoprolol Tartrate), 50 MG PO BID Pantoprazole (Protonix), 40 MG PO QAM Pravastatin Sod (Pravastatin Sodium), 40 MG PO DAILY Prednisone (Prednisone), 10 MG PO DAILY Scheduled PRN Acetaminophen (Tylenol), 500 MG PO Q8 PRN for Pain Hydrocodone/Acetaminophen 5MG/325MG ([place] 5MG/325MG), 1 TABLET PO Q6H PRN for Pain Polyethylene Glycol-Propylene (Systane), 1 DROPS OPB DAILY PRN for DRYNESS Current Inpatient Medications Current Inpatient Medications Medications (Trade) Dose Ordered Sig/Alicia Route Start Time Stop Time Status Last Admin Dose Admin Ondansetron HCl (Zofran Inj) 4 mg Q6H PRN IV 10/19/17 16:30 11/18/17 16:29 Allopurinol (Zyloprim Tab) 100 mg QAM PO 10/20/17 09:00 11/19/17 08:59 10/25/17 09:17 100 MG Pantoprazole Sodium (Protonix Tab) 40 mg QAM PO 10/20/17 09:00 11/19/17 08:59 10/25/17 09:16 40 MG Pravastatin Sodium (Pravachol Tab) 40 mg HS PO 10/19/17 21:00 11/18/17 20:59 10/24/17 23:17 40 MG Aspirin (Ecotrin Tab) 81 mg QAM PO 10/20/17 09:00 11/19/17 08:59 10/25/17 09:16 81 MG Tramadol HCl (Ultram Tab) 25 mg Q6H PRN PO 10/22/17 05:30 11/21/17 05:29 10/22/17 06:02 25 MG Amiodarone HCl (Cordarone Tab) 400 mg TIDM PO 10/23/17 11:30 11/22/17 11:29 10/25/17 09:15 400 MG Heparin Sodium/ Dextrose 500 ml @ 11 mls/hr Q24H PRN IV 10/23/17 11:00 11/22/17 10:59 Future hold 10/23/17 12:04 12 MLS/HR Docusate Sodium (coLACE CAP) 100 mg BID PRN PO 10/24/17 19:00 11/23/17 18:59 Ipratropium [place] (Atrovent 0.02% 0.5MG/2.5ML Neb) 0.5 mg Q4H PRN INH 10/25/17 03:15 11/24/17 03:14 Levalbuterol (Xopenex 1.25MG/ 0.5ML Neb) 1.25 mg Q4H PRN INH 10/25/17 03:15 11/24/17 03:14 Miscellaneous Information (Consult) 1 ea UD PRN N/A 10/25/17 09:00 11/24/17 08:59 Piperacillin Sod/ Tazobactam Sod 3.375 gm/Dextrose 115 ml @ 28.75 mls/ hr Q12H IV 10/25/17 12:00 11/01/17 11:59 Acetaminophen (Tylenol Tab) 650 mg Q4H PRN PO 10/25/17 06:15 11/24/17 06:14 Miscellaneous Information (Icu Protocol For Hyperglycemia) 1 ea PRN PRN N/A 10/25/17 06:15 10/27/17 06:14 Prochlorperazine Edisylate 5 mg/ Syringe 5 ml @ 5 mls/min Q6H PRN IV 10/25/17 06:15 11/24/17 06:14 Hydrocortisone Sodium Succinate 50 mg/Syringe 1 ml @ 4 mls/min Q6H IV 10/25/17 07:00 11/24/17 06:59 10/25/17 09:14 4 MLS/MIN Ipratropium [place] (Atrovent 0.02% 0.5MG/2.5ML Neb) 0.5 mg Q6R INH 10/25/17 09:00 11/24/17 08:59 10/25/17 08:02 0.5 MG Levalbuterol (Xopenex 1.25MG/ 0.5ML Neb) 1.25 mg Q6R INH 10/25/17 09:00 11/24/17 08:59 10/25/17 08:02 1.25 MG Miscellaneous Information (Consult) 1 ea UD PRN N/A 10/25/17 07:00 11/24/17 06:59 Review of Systems Difficult to obtain from the patient Physical Exam Date Time Temp Pulse Resp B/P (MAP) Pulse Ox O2 Delivery O2 Flow Rate FiO2 10/25/17 08:03 77 16 97 Nasal Cannula 2.0 10/25/17 05:31 85 27 109/46 (67) 96 10/25/17 05:28 79 23 108/44 (65) 97 10/25/17 05:26 86 27 112/47 (68) 96 10/25/17 05:16 83 16 69/58 (62) 92 10/25/17 05:11 81 20 99/47 (64) 94 10/25/17 05:06 81 21 93/45 (61) 96 10/25/17 04:56 75 20 82/45 (57) 93 10/25/17 04:55 75 19 88/41 (57) 93 10/25/17 04:51 75 20 77/39 (52) 92 10/25/17 04:46 73 21 79/39 (52) 88 10/25/17 04:41 75 20 78/37 (51) 86 10/25/17 04:41 75 20 78/37 (51) 86 10/25/17 04:38 75 23 79/53 (62) 91 10/25/17 04:36 80 21 81/43 (56) 93 10/25/17 04:31 88 23 94/44 (61) 94 10/25/17 04:26 90 19 100/45 (63) 98 10/25/17 04:21 86 22 96/46 (63) 96 10/25/17 04:16 88 32 93/46 (62) 98 10/25/17 04:11 77 21 80/46 (57) 92 10/25/17 04:10 76 20 80/38 (52) 94 10/25/17 04:06 78 23 84/41 (55) 92 10/25/17 04:01 85 26 77/56 (63) 95 10/25/17 04:00 98 Nasal Cannula 2.0 10/25/17 03:56 87 21 84/44 (57) 96 10/25/17 03:51 86 25 90/44 (59) 91 10/25/17 03:46 88 23 101/44 (63) 96 10/25/17 03:41 89 26 86/49 (61) 92 10/25/17 03:38 88 16 87/42 (57) 93 10/25/17 03:36 88 25 87/44 (58) 93 10/25/17 03:31 88 25 92/58 (69) 93 10/25/17 03:29 36.7 85 26 10/25/17 00:39 37.0 92 26 122/63 (82) 91 Room Air 10/25/17 00:00 95 Room Air 10/24/17 21:31 69 36 122/58 (79) 10/24/17 21:12 77 31 152/89 (110) 10/24/17 21:06 77 35 168/92 (117) 10/24/17 20:57 76 33 75/39 (51) 10/24/17 20:53 72 32 102/64 (77) 10/24/17 20:46 67 35 131/78 (95) 10/24/17 20:41 62 29 104/51 (68) 10/24/17 20:36 59 34 95/43 (60) 10/24/17 20:31 61 28 86/40 (55) 10/24/17 20:26 62 23 92/43 (59) 10/24/17 20:21 66 26 92/44 (60) 10/24/17 20:02 36.3 62 25 72/35 (47) 10/24/17 20:01 63 26 68/35 (46) 10/24/17 20:00 Room Air 10/24/17 19:52 62 35 61/37 (45) 10/24/17 19:49 62 31 58/32 (41) 10/24/17 19:47 60 29 49/30 (36) 10/24/17 19:42 60 35 49/31 (37) 10/24/17 19:39 59 28 66/32 (43) 10/24/17 16:00 Room Air 10/24/17 15:09 36.7 68 20 149/60 (89) 96 Room Air 10/24/17 12:15 36.4 62 16 164/90 (114) 93 Room Air 10/24/17 12:00 Room Air General: Elderly female, mildly lethargic, in no distress Heent: NC/AT Lungs: Bibasilar crackles, scattered rhonchi CVS:S1S2 regular Abdomen: Soft Ext: contracted upper and lower extremities. D[employer]: Now AAO x3, generalized contractures Laboratory Results Last 24 Hours Test 10/24/17 20:12 10/25/17 00:27 10/25/17 03:24 10/25/17 04:55 White Blood Count 6.46 K/uL 17.69 K/uL Red Blood Count 3.40 M/uL 2.99 M/uL Hemoglobin 10.6 g/dL 9.3 g/dL Hematocrit 31.5 % 27.5 % Mean Corpuscular Volume 92.6 fL 92.0 fL Mean Corpuscular Hemoglobin 31.2 pg 31.1 pg Mean Corpuscular Hemoglobin Concent 33.7 g/dl 33.8 g/dl Platelet Count 165 K/uL 133 K/uL Mean Platelet Volume 9.5 fL 9.1 fL RDW Standard Deviation 52.2 fL 51.9 fL RDW Coefficient of Variation 15.4 % 15.4 % Neutrophils % (Manual) 85.0 % 96.4 % Lymphocytes % (Manual) 5.0 % 0.9 % Monocytes % (Manual) 2.0 % 1.8 % Eosinophils % (Manual) 1.0 % Metamyelocytes % 5.0 % 0.9 % Myelocytes % 2.0 % Neutrophils # (Manual) 5.49 K/uL 17.05 K/uL Total Absolute Neutrophils 5.49 K/uL 17.05 K/uL Lymphocytes # (Manual) 0.32 K/uL 0.16 K/uL Total Absolute Lymphocytes 0.32 K/uL 0.16 K/uL Monocytes # (Manual) 0.13 K/uL 0.32 K/uL Eosinophils # (Manual) 0.06 K/uL Metamyelocytes # 0.32 K/uL 0.16 K/uL Myelocytes # 0.13 K/uL Echinocytes 1+ 1+ Sodium Level 131 mmol/L 131 mmol/L Potassium Level 4.4 mmol/L 3.5 mmol/L Chloride Level 102 mmol/L 104 mmol/L Carbon Dioxide Level 17 mmol/L 14 mmol/L Anion Gap 12.0 mmol/L 13.0 mmol/L Blood Urea Nitrogen 35 mg/dl 34 mg/dl Creatinine 1.93 mg/dl 1.77 mg/dl Est Creatinine Clear Calc Drug Dose 16.2 ml/min 17.7 ml/min Estimated GFR () 26.5 29.4 Estimated GFR (Non- 22.9 25.4 BUN/Creatinine Ratio 18.1 19.4 Random Glucose 126 mg/dl 85 mg/dl Lactic Acid Level 2.1 mmol/L 1.0 mmol/L 1.0 mmol/L Calcium Level 7.2 mg/dl 6.8 mg/dl Magnesium Level 1.9 mg/dl 1.5 mg/dl Hyposegmented Neutrophils 1+ Toxic Vacuolation 3+ Activated Partial Thromboplast Time 53.7 SECONDS Partial Thromboplastin Ratio 2.1 Arterial Blood pH 7.37 Arterial Blood Partial Pressure CO2 27 mmHg Arterial Blood Partial Pressure O2 70 mm/Hg Arterial Blood HCO3 15 mmol/L Arterial Blood Oxygen Saturation 91.1 % Arterial Blood Base Excess -8.8 mEq/L Arterial Blood Gas Delivery 2 L [place] Test POS Total Bilirubin 0.3 mg/dl Direct Bilirubin 0.1 mg/dl Aspartate Amino Transf (AST/SGOT) 15 U/L Alanine Aminotransferase (ALT/SGPT) 14 U/L Alkaline Phosphatase 44 U/L Total Protein 4.7 gm/dl Albumin 2.4 gm/dl Procalcitonin 41.78 ng/ml Test 10/25/17 08:09 10/25/17 09:50 Troponin I 0.140 ng/ml Urine Color YELLOW Urine Appearance CLOUDY Urine pH 5.0 Urine Specific [place] 1.013 Urine Protein NEG Urine Glucose (UA) NEG Urine Ketones NEG Urine Occult Blood NEG Urine Nitrite NEG Urine Bilirubin NEG Urine Urobilinogen NEG Urine Leukocyte Esterase NEG Urine WBC (Auto) 1-5 /hpf Urine RBC (Auto) 5-10 /hpf Urine Hyaline Casts (Auto) 1-5 /lpf Urine Epithelial Cells (Auto) 5-10 /lpf Urine Bacteria (Auto) NEG Urine Random Creatinine 41.0 mg/dl Urine Random Sodium 19 mEq/L Diagnostic Results CXR today: Atherosclerosis of aortic arch. Cardiac silhouette mildly enlarged. Pulmonary vascular prominence and hazy perihilar opacities. Mildly low lung volumes with hypoventilatory changes. Right basilar focal nodular opacity. Trace pleural effusions may be present. No pneumothorax. Osteopenia suspected. Splenic arterial calcification. Assessment & Plan 87 year old female with paroxysmal a-fib, with severe sepsis Problems: Severe sepsis secondary to PNA/UTI Paroxysmal a-fib h/o CVA CKD Plan: Continue broad spectrum Abx for now. Blood cultures repeated Urine culture repeated as well Sputum culture sent Loaded with amiodarone, remains in NSR today. On PO amiodarone now Anticoagulated as well. Probably not a good intermediate card tender candidate though. Displays signs of fluid overload now. However, urine sodium 19, FeNA 0.6%, indicating pre-renal state. She is diuresing now on her own. Hold off on IV fluids for the time being and reassess. Hedrick inserted, keep it in for the time being, requires close monitoring of the urine output. On stress dose steroids now. Eventual video swallow evaluation Critical care time spent with the patient, reviewing chart, discussing with consultants, excluding procedures, greater than 35 minutes ICU monitoring indications: hemodynamic instability, close monitoring of urine output
[2017-10-25] MEDS ORDERED: NURSING VERBAL MED ORDER ONE (16:30)
--- NOTE | 2017-10-25 16:33 | Cardiology Follow-Up ---
Subjective Subjective Date of Service: Oct 25, 2017. Pt evaluation today including: physical exam, chart review, lab review, review of studies, conversation w/ creative consultant, review of inpatient medication list Additional Details: Events of last night noted. Patient was transferred to the ICU due to low blood pressure felt due to sepsis. Her rhythm has remained stable without additional atrial fibrillation. Patient is currently resting comfortably. Problem List Medical Problems: (1) Acute renal failure Status: Acute (2) Cellulitis of left foot Status: Acute (3) Dehydration Status: Acute (4) Hypotension Status: Acute (5) Sepsis Status: Acute Review of Systems Musculoskeletal: + see HPI Female : + see HPI Psychiatric: + anxiety Objective Vital Signs Last Vital Signs Documentation Date Time Temp Pulse Resp B/P (MAP) Pulse Ox O2 Delivery O2 Flow Rate FiO2 10/25/17 14:49 72 14 99 Nasal Cannula 2.0 10/25/17 14:32 73/44 (54) 10/25/17 12:00 36.6 Physical Exam: General Appearance: no apparent distress ENT: normal ENT inspection, hearing grossly normal, pharynx normal Neck: thyroid normal, no JVD Respiratory/Chest: lungs clear, no respiratory distress, no accessory muscle use Cardiovascular: regular rate, rhythm, no edema, no murmur, + tachycardia Abdomen: normal bowel sounds, non tender, soft, no organomegaly Extremities: normal inspection, no pedal edema Neurologic/Psychiatric: alert, normal mood/affect, + motor weakness Skin: normal color, warm/dry, no rash Lymphatic: no adenopathy Assessment and Plan Impression: 1. Paroxysmal atrial fibrillation 2. Dementia 3. Pneumonia, UTI, diarrhea 4. Chronic kidney disease 5. History of previous stroke Recommendations: At this point the patient is clinically stable. I would continue to load her with amiodarone. Medications: Current Inpatient Medications Medications (Trade) Dose Ordered Sig/Alicia Route Start Time Stop Time Status Last Admin Dose Admin Ondansetron HCl (Zofran Inj) 4 mg Q6H PRN IV 10/19/17 16:30 11/18/17 16:29 Allopurinol (Zyloprim Tab) 100 mg QAM PO 10/20/17 09:00 11/19/17 08:59 10/25/17 09:17 100 MG Pantoprazole Sodium (Protonix Tab) 40 mg QAM PO 10/20/17 09:00 11/19/17 08:59 10/25/17 09:16 40 MG Pravastatin Sodium (Pravachol Tab) 40 mg HS PO 10/19/17 21:00 11/18/17 20:59 10/24/17 23:17 40 MG Aspirin (Ecotrin Tab) 81 mg QAM PO 10/20/17 09:00 11/19/17 08:59 10/25/17 09:16 81 MG Tramadol HCl (Ultram Tab) 25 mg Q6H PRN PO 10/22/17 05:30 11/21/17 05:29 10/22/17 06:02 25 MG Amiodarone HCl (Cordarone Tab) 400 mg TIDM PO 10/23/17 11:30 11/22/17 11:29 10/25/17 11:42 400 MG Heparin Sodium/ Dextrose 500 ml @ 11 mls/hr Q24H PRN IV 10/23/17 11:00 11/22/17 10:59 Future hold 10/25/17 11:45 11 MLS/HR Docusate Sodium (coLACE CAP) 100 mg BID PRN PO 10/24/17 19:00 11/23/17 18:59 Ipratropium [place] (Atrovent 0.02% 0.5MG/2.5ML Neb) 0.5 mg Q4H PRN INH 10/25/17 03:15 11/24/17 03:14 Levalbuterol (Xopenex 1.25MG/ 0.5ML Neb) 1.25 mg Q4H PRN INH 10/25/17 03:15 11/24/17 03:14 Miscellaneous Information (Consult) 1 ea UD PRN N/A 10/25/17 09:00 11/24/17 08:59 Piperacillin Sod/ Tazobactam Sod 3.375 gm/Dextrose 115 ml @ 28.75 mls/ hr Q12H IV 10/25/17 12:00 11/01/17 11:59 10/25/17 11:43 28.75 MLS/HR Acetaminophen (Tylenol Tab) 650 mg Q4H PRN PO 10/25/17 06:15 11/24/17 06:14 Miscellaneous Information (Icu Protocol For Hyperglycemia) 1 ea PRN PRN N/A 10/25/17 06:15 10/27/17 06:14 Prochlorperazine Edisylate 5 mg/ Syringe 5 ml @ 5 mls/min Q6H PRN IV 10/25/17 06:15 11/24/17 06:14 Hydrocortisone Sodium Succinate 50 mg/Syringe 1 ml @ 4 mls/min Q6H IV 10/25/17 07:00 11/24/17 06:59 10/25/17 14:34 4 MLS/MIN Ipratropium [place] (Atrovent 0.02% 0.5MG/2.5ML Neb) 0.5 mg Q6R INH 10/25/17 09:00 11/24/17 08:59 10/25/17 14:49 0.5 MG Levalbuterol (Xopenex 1.25MG/ 0.5ML Neb) 1.25 mg Q6R INH 10/25/17 09:00 11/24/17 08:59 10/25/17 14:49 1.25 MG Miscellaneous Information (Consult) 1 ea UD PRN N/A 10/25/17 07:00 11/24/17 06:59 Miscellaneous Information (Nursing Verbal Med Order) 1 ea ONE ONCE N/A 10/25/17 16:30 10/25/17 16:31 UNV Lab Results: Last 24 Hours Test 10/24/17 20:12 10/25/17 00:27 10/25/17 03:24 10/25/17 04:55 White Blood Count 6.46 K/uL 17.69 K/uL Red Blood Count 3.40 M/uL 2.99 M/uL Hemoglobin 10.6 g/dL 9.3 g/dL Hematocrit 31.5 % 27.5 % Mean Corpuscular Volume 92.6 fL 92.0 fL Mean Corpuscular Hemoglobin 31.2 pg 31.1 pg Mean Corpuscular Hemoglobin Concent 33.7 g/dl 33.8 g/dl Platelet Count 165 K/uL 133 K/uL Mean Platelet Volume 9.5 fL 9.1 fL RDW Standard Deviation 52.2 fL 51.9 fL RDW Coefficient of Variation 15.4 % 15.4 % Neutrophils % (Manual) 85.0 % 96.4 % Lymphocytes % (Manual) 5.0 % 0.9 % Monocytes % (Manual) 2.0 % 1.8 % Eosinophils % (Manual) 1.0 % Metamyelocytes % 5.0 % 0.9 % Myelocytes % 2.0 % Neutrophils # (Manual) 5.49 K/uL 17.05 K/uL Total Absolute Neutrophils 5.49 K/uL 17.05 K/uL Lymphocytes # (Manual) 0.32 K/uL 0.16 K/uL Total Absolute Lymphocytes 0.32 K/uL 0.16 K/uL Monocytes # (Manual) 0.13 K/uL 0.32 K/uL Eosinophils # (Manual) 0.06 K/uL Metamyelocytes # 0.32 K/uL 0.16 K/uL Myelocytes # 0.13 K/uL Echinocytes 1+ 1+ Sodium Level 131 mmol/L 131 mmol/L Potassium Level 4.4 mmol/L 3.5 mmol/L Chloride Level 102 mmol/L 104 mmol/L Carbon Dioxide Level 17 mmol/L 14 mmol/L Anion Gap 12.0 mmol/L 13.0 mmol/L Blood Urea Nitrogen 35 mg/dl 34 mg/dl Creatinine 1.93 mg/dl 1.77 mg/dl Est Creatinine Clear Calc Drug Dose 16.2 ml/min 17.7 ml/min Estimated GFR () 26.5 29.4 Estimated GFR (Non- 22.9 25.4 BUN/Creatinine Ratio 18.1 19.4 Random Glucose 126 mg/dl 85 mg/dl Lactic Acid Level 2.1 mmol/L 1.0 mmol/L 1.0 mmol/L Calcium Level 7.2 mg/dl 6.8 mg/dl Magnesium Level 1.9 mg/dl 1.5 mg/dl Hyposegmented Neutrophils 1+ Toxic Vacuolation 3+ Activated Partial Thromboplast Time 53.7 SECONDS Partial Thromboplastin Ratio 2.1 Arterial Blood pH 7.37 Arterial Blood Partial Pressure CO2 27 mmHg Arterial Blood Partial Pressure O2 70 mm/Hg Arterial Blood HCO3 15 mmol/L Arterial Blood Oxygen Saturation 91.1 % Arterial Blood Base Excess -8.8 mEq/L Arterial Blood Gas Delivery 2 L Joseph Test POS Total Bilirubin 0.3 mg/dl Direct Bilirubin 0.1 mg/dl Aspartate Amino Transf (AST/SGOT) 15 U/L Alanine Aminotransferase (ALT/SGPT) 14 U/L Alkaline Phosphatase 44 U/L Total Protein 4.7 gm/dl Albumin 2.4 gm/dl Procalcitonin 41.78 ng/ml Test 10/25/17 08:09 10/25/17 09:50 10/25/17 12:13 Troponin I 0.140 ng/ml Urine Color YELLOW Urine Appearance CLOUDY Urine pH 5.0 Urine Specific [place] 1.013 Urine Protein NEG Urine Glucose (UA) NEG Urine Ketones NEG Urine Occult Blood NEG Urine Nitrite NEG Urine Bilirubin NEG Urine Urobilinogen NEG Urine Leukocyte Esterase NEG Urine WBC (Auto) 1-5 /hpf Urine RBC (Auto) 5-10 /hpf Urine Hyaline Casts (Auto) 1-5 /lpf Urine Epithelial Cells (Auto) 5-10 /lpf Urine Bacteria (Auto) NEG Urine Random Creatinine 41.0 mg/dl Urine Random Sodium 19 mEq/L Bedside Glucose 122 mg/dl
[2017-10-25] MEDS: NSS + 20MEQ KCL 1000ML 1,000 ML IV SCH (17:16)
--- NOTE | 2017-10-25 19:00 | ECHOCARDIOGRAM REPORT ---
*NOTICE TO RECEIVING REPUBLICAN AGENCY This information is strictly Confidential and protected under [place] law. [place] law prohibits you from making any further disclosure of this information unless further disclosure is expressly permitted by the written consent of the person to whom it pertains or is authorized by law. A general authorization for the release of medical or other information is not sufficient for this purpose. Hospital accepts no responsibility if the information is made available to any other person, INCLUDING THE PATIENT. Interpretation Summary * Name: DUSTIN MUIR Study Date: 10/25/2017 06:48 AM BP: 109/46 mmHg * Patient Location: C.2E\S\E210\S\1 HR: 78 * : 1930 (M/d/yyyy) Gender: Female Height: 62 in * Age: 87 yrs Ethnicity: CA Weight: 117 lb * Ordering Physician: Gustavo Cedeno * Referring Physician: Self, Referred * Performed By: Ashlee Ash RCS * * Reason For Study: HYPOTENSION * BSA: 1.5 m2 * -- Conclusions -- * The left ventricle is normal in size. * There is moderate concentric left ventricular hypertrophy. * Ejection Fraction = 60-65%. * The right ventricular systolic function is normal. * The left atrium is mildly dilated. * Right atrial size is normal. * Aortic valve sclerosis moderate, without significant aortic valvular stenosis. * There is mild to moderate mitral regurgitation. Procedure Details * A complete two-dimensional transthoracic echocardiogram was performed (2D, M-mode, Doppler and color flow Doppler). Left Ventricle * The left ventricle is normal in size. * There is moderate concentric left ventricular hypertrophy. * Ejection Fraction = 60-65%. Right Ventricle * The right ventricle is normal size. * The right ventricular systolic function is normal. Atria * The left atrium is mildly dilated. * Right atrial size is normal. * Lipomatous hypertrophy of the interatrial septum is noted. Mitral Valve * The mitral valve leaflets appear thickened, but open well. * There is mild to moderate mitral regurgitation. Tricuspid Valve * The tricuspid valve is not well visualized, but is grossly normal. * There is mild tricuspid regurgitation. Aortic Valve * Aortic valve sclerosis moderate, without significant aortic valvular stenosis. * There is no significant aortic regurgitation. Great Vessels * The aortic root and proximal ascending aorta are normal sized. Pericardium/Pleural * There is no pericardial effusion. Left Ventricular Diastolic Function * Grade I diastolic dysfunction, (abnormal relaxation pattern). MMode 2D Measurements and Calculations IVSd 1.8 cm IVSs 2.0 cm LVIDd 3.1 cm LVIDs 2.4 cm LVPWd 1.5 cm LVPWs 1.5 cm IVS/LVPW 1.1 FS 22.0 % EDV(Teich) 37.8 ml ESV(Teich) 20.5 ml EF(Teich) 45.8 % EDV(cubed) 29.6 ml ESV(cubed) 14.1 ml EF(cubed) 52.5 % % IVS thick 12.6 % % LVPW thick -0.28 % LV mass(C)d 192.6 grams LV mass(C)dI 126.5 grams/m\S\2 LV mass(C)s 161.8 grams LV mass(C)sI 106.3 grams/m\S\2 SV(Teich) 17.3 ml SI(Teich) 11.3 ml/m\S\2 SV(cubed) 15.5 ml SI(cubed) 10.2 ml/m\S\2 Ao root diam 2.7 cm Ao root area 5.6 cm\S\2 ACS 1.7 cm LA dimension 4.7 cm LA/Ao 1.8 LVOT diam 2.0 cm LVOT area 3.1 cm\S\2 LVAd ap4 17.7 cm\S\2 LVLd ap4 7.3 cm EDV(MOD-sp4) 35.7 ml EDV(sp4-el) 36.4 ml LVAs ap4 12.2 cm\S\2 LVLs ap4 6.8 cm ESV(MOD-sp4) 18.1 ml ESV(sp4-el) 18.5 ml EF(MOD-sp4) 49.2 % EF(sp4-el) 49.2 % LVAd ap2 19.6 cm\S\2 LVLd ap2 7.2 cm EDV(MOD-sp2) 43.0 ml EDV(sp2-el) 45.5 ml LVAs ap2 12.0 cm\S\2 LVLs ap2 6.2 cm ESV(MOD-sp2) 20.0 ml ESV(sp2-el) 19.7 ml EF(MOD-sp2) 53.4 % EF(sp2-el) 56.7 % LVLd %diff -2.21 % EDV(MOD-bp) 38.8 ml LVLs %diff -9.61 % ESV(MOD-bp) 19.3 ml EF(MOD-bp) 50.2 % SV(MOD-sp4) 17.5 ml SI(MOD-sp4) 11.5 ml/m\S\2 SV(MOD-sp2) 22.9 ml SI(MOD-sp2) 15.1 ml/m\S\2 SV(MOD-bp) 19.5 ml SI(MOD-bp) 12.8 ml/m\S\2 SV(sp4-el) 17.9 ml SI(sp4-el) 11.8 ml/m\S\2 SV(sp2-el) 25.8 ml SI(sp2-el) 17.0 ml/m\S\2 Doppler Measurements and Calculations MV E max [place] 99.2 cm/sec MV A max [place] 127.3 cm/sec MV E/A 0.78 MV P1/2t max [place] 116.6 cm/sec MV P1/2t 97.2 msec MVA(P1/2t) 2.3 cm\S\2 MV dec slope 351.6 cm/sec\S\2 MV dec time 0.27 sec Ao V2 max 130.5 cm/sec Ao max PG 6.8 mmHg Ao max PG (full) 3.3 mmHg GAGE(V,A) 2.3 cm\S\2 GAGE(V,D) 2.3 cm\S\2 LV V1 max PG 3.6 mmHg LV V1 max 94.4 cm/sec PA V2 max 72.8 cm/sec PA max PG 2.1 mmHg TR max [place] 284.4 cm/sec
--- NOTE | 2017-10-25 19:08 | Progress Note ---
Medicine Progress Note Date & Time of Visit: Oct 25, 2017 at 08:48. Subjective Pt was seen and examined Resting comfortable in the ICU with both daughters at bedside Pt BP has been stable in the ICU Updated both daughter about their mother She does not require any pressor No complaints of chest pain Objective Last 8 Hrs Date Time Temp Pulse Resp B/P (MAP) Pulse Ox O2 Delivery O2 Flow Rate FiO2 10/25/17 17:17 69 16 115/56 (75) 100 10/25/17 17:04 72 17 113/62 (79) 100 Nasal Cannula 2.0 10/25/17 16:48 76 19 83/74 (77) 96 Nasal Cannula 2.0 10/25/17 16:33 68 15 92/51 (65) 98 Nasal Cannula 2.0 10/25/17 16:17 71 16 97/54 (68) 98 Nasal Cannula 2.0 10/25/17 16:02 36.5 70 15 87/48 (61) 97 Nasal Cannula 2.0 10/25/17 15:47 71 15 98/53 (68) 96 Nasal Cannula 2.0 10/25/17 15:32 72 15 105/55 (72) 98 Nasal Cannula 2.0 10/25/17 15:22 78 17 106/59 (75) 96 Nasal Cannula 2.0 10/25/17 14:49 72 14 99 Nasal Cannula 2.0 10/25/17 14:32 73 15 73/44 (54) 99 Nasal Cannula 2.0 10/25/17 14:00 68 13 87/43 (58) 100 Nasal Cannula 2.0 10/25/17 13:00 72 17 115/60 (78) 98 Nasal Cannula 2.0 10/25/17 12:42 98 Nasal Cannula 2.0 10/25/17 12:00 98 Nasal Cannula 2.0 10/25/17 12:00 36.6 70 16 107/54 (71) 99 Nasal Cannula 2.0 10/25/17 11:48 72 17 95/54 (68) 98 Nasal Cannula 2.0 10/25/17 11:00 70 15 84/49 (61) 100 Nasal Cannula 2.0 Physical Exam: General- No acute distress Head- atraumatic Eyes- PERRL, EOMI ENT- oropharynx clear Neck- supple, no JVD Lungs- Poor air entry Heart- irregular rhythm, +murmur Abdomen- normal bowel sounds, soft Extremities- no calf tenderness Neuro- alert, oriented x 3; PERRL Skin- warm & dry Laboratory Results: Last 24 Hours Test 10/24/17 20:12 10/25/17 00:27 10/25/17 03:24 10/25/17 04:55 White Blood Count 6.46 K/uL 17.69 K/uL Red Blood Count 3.40 M/uL 2.99 M/uL Hemoglobin 10.6 g/dL 9.3 g/dL Hematocrit 31.5 % 27.5 % Mean Corpuscular Volume 92.6 fL 92.0 fL Mean Corpuscular Hemoglobin 31.2 pg 31.1 pg Mean Corpuscular Hemoglobin Concent 33.7 g/dl 33.8 g/dl Platelet Count 165 K/uL 133 K/uL Mean Platelet Volume 9.5 fL 9.1 fL RDW Standard Deviation 52.2 fL 51.9 fL RDW Coefficient of Variation 15.4 % 15.4 % Neutrophils % (Manual) 85.0 % 96.4 % Lymphocytes % (Manual) 5.0 % 0.9 % Monocytes % (Manual) 2.0 % 1.8 % Eosinophils % (Manual) 1.0 % Metamyelocytes % 5.0 % 0.9 % Myelocytes % 2.0 % Neutrophils # (Manual) 5.49 K/uL 17.05 K/uL Total Absolute Neutrophils 5.49 K/uL 17.05 K/uL Lymphocytes # (Manual) 0.32 K/uL 0.16 K/uL Total Absolute Lymphocytes 0.32 K/uL 0.16 K/uL Monocytes # (Manual) 0.13 K/uL 0.32 K/uL Eosinophils # (Manual) 0.06 K/uL Metamyelocytes # 0.32 K/uL 0.16 K/uL Myelocytes # 0.13 K/uL Echinocytes 1+ 1+ Sodium Level 131 mmol/L 131 mmol/L Potassium Level 4.4 mmol/L 3.5 mmol/L Chloride Level 102 mmol/L 104 mmol/L Carbon Dioxide Level 17 mmol/L 14 mmol/L Anion Gap 12.0 mmol/L 13.0 mmol/L Blood Urea Nitrogen 35 mg/dl 34 mg/dl Creatinine 1.93 mg/dl 1.77 mg/dl Est Creatinine Clear Calc Drug Dose 16.2 ml/min 17.7 ml/min Estimated GFR () 26.5 29.4 Estimated GFR (Non- 22.9 25.4 BUN/Creatinine Ratio 18.1 19.4 Random Glucose 126 mg/dl 85 mg/dl Lactic Acid Level 2.1 mmol/L 1.0 mmol/L 1.0 mmol/L Calcium Level 7.2 mg/dl 6.8 mg/dl Magnesium Level 1.9 mg/dl 1.5 mg/dl Hyposegmented Neutrophils 1+ Toxic Vacuolation 3+ Activated Partial Thromboplast Time 53.7 SECONDS Partial Thromboplastin Ratio 2.1 Arterial Blood pH 7.37 Arterial Blood Partial Pressure CO2 27 mmHg Arterial Blood Partial Pressure O2 70 mm/Hg Arterial Blood HCO3 15 mmol/L Arterial Blood Oxygen Saturation 91.1 % Arterial Blood Base Excess -8.8 mEq/L Arterial Blood Gas Delivery 2 L Joseph Test POS Total Bilirubin 0.3 mg/dl Direct Bilirubin 0.1 mg/dl Aspartate Amino Transf (AST/SGOT) 15 U/L Alanine Aminotransferase (ALT/SGPT) 14 U/L Alkaline Phosphatase 44 U/L Total Protein 4.7 gm/dl Albumin 2.4 gm/dl Procalcitonin 41.78 ng/ml Test 10/25/17 08:09 10/25/17 09:50 10/25/17 12:13 10/25/17 16:53 Troponin I 0.140 ng/ml Urine Color YELLOW Urine Appearance CLOUDY Urine pH 5.0 Urine Specific [place] 1.013 Urine Protein NEG Urine Glucose (UA) NEG Urine Ketones NEG Urine Occult Blood NEG Urine Nitrite NEG Urine Bilirubin NEG Urine Urobilinogen NEG Urine Leukocyte Esterase NEG Urine WBC (Auto) 1-5 /hpf Urine RBC (Auto) 5-10 /hpf Urine Hyaline Casts (Auto) 1-5 /lpf Urine Epithelial Cells (Auto) 5-10 /lpf Urine Bacteria (Auto) NEG Urine Random Creatinine 41.0 mg/dl Urine Random Sodium 19 mEq/L Bedside Glucose 122 mg/dl 152 mg/dl Date/Time Source Procedure Growth Status 10/24/17 21:18 Blood Blood Culture Pending Received 10/24/17 21:07 Blood Blood Culture Pending Received 10/25/17 07:45 Nasal MRSA DNA Surveillance Screen - Final Specimen Negative for MRSA by DNA Probe Complete 10/24/17 22:15 Stool C.difficile Toxin B Gene (PCR) - Final No C. difficile toxin B gene detected Complete 10/24/17 22:15 Stool WBC Smear - Final Resulted 10/24/17 22:15 Stool Shiga Toxin Test - Preliminary No E. Coli shiga toxin 1 or shiga tox... Resulted 10/24/17 22:15 Stool Stool Culture - Preliminary NO SALMONELLA ISOLATED TO DATE,... Resulted 10/25/17 06:14 Sputum Expectorated Sputum Gram Stain Pending Daniela Batch 10/25/17 06:14 Sputum Expectorated Sputum Sputum Culture Pending Daniela Batch 10/25/17 09:50 Urine,Catheterized Urine Culture Pending Received Assessment & Plan SEPSIS Transfer to the ICU for hypotension Possible related to aspiration pneumonia CXR showed showed new focal nodular opacity at the right lung base Elevated procalcitonin Elevated WBC Starting on empirical abx with zosyn and vanco repeat Blood cx and urine cx pending continue monitor in the ICU Director Behavioral [facility] on board AFIB WITH RVR Hx of paroxysmal afib Possible due to anxiety to go home because BP was low, unable to start on cardizem or lopressor Starting on Amiodarone drip/bolus After about 30 minutes, pt was converted back to sinus rhythm with rate control Will run the amiodarone for now and stopped it when receiving her metoprolol [id number] - score about 5 (Age,sex,CVA, HTN) Since pt converted back in less than 30 minutes, not a [facility] candidate of anticoagulant due to unsteady gait Will hold on anticoagulant. If converts back to Afib will start on heparin drip Cardiology consult Check Echo Check TSH, Mg Troponin and Potassium Continue monitor in tele 10/25 Paroxysmal afib rate has been controlled Remains on NSR Continue Amiodarone 400 mg TID by cardiology Not a good candidate for [facility] anticoagulant Continue low dose of heparin drip while in the hospital due [id number] - score greater than 5 (Age,sex,CVA, HTN) Continue monitor cardio on board PNEUMONIA CXR on admission showed left lower lobe infiltrate. Repeat cxr showed Focal nodular opacity at the right lung base Elevated WBC elevated procalcitonin repeat blood cx no growth Continue intravenous piperacillin/tazobactam and Vanco UTI Urine cx growth gram negative bacilli Growth E-coli and Klebsiella On IV Zosyn Abx change to amoxicillin D/c amoxicillin since pt in on empirical abx Repeat urine cx pending . DIARRHEA No more episode of diarrhea Stool for C-diff negative Daughter said pt has diarrhea twice a week and constipated for the other days HYPOTENSION Secondary to sepsis Received 3L IVF last night BP improved No pressors required Continue monitor BP ABNORMAL EKG / ELEVATED TROPONIN Troponin was 0.051 on admission Possible related to infection vs dehydration EKG shows inferolateral T-wave changes. Repeat trop trending down to normal denies any chest pain Continue metoprolol, aspirin and statin. HYPERTENSION BP elevated Metoprolol increased back to 50mg BID hydrochlorothiazide on hold Resume lisinopril Starting on IV hydralazine prn Continue monitor BP 3/5 Hold BP med due to hypotension CKD III Serum creatinine 1.59 on admission Worsening renal function Received IV fluids. CXR showed pulmonary edema Has been diuresis on her own No additional IVF fluid Monitor BMP GOUT Continue allopurinol and prednisone. Stable RESUSCITATION STATUS FULL CODE VTE PROPHYLAXIS Nonambulatory. heparin drip DISPOSITION Monitor in the ICU Current Inpatient Medications: Current Inpatient Medications Medications (Trade) Dose Ordered Sig/Alicia Route Start Time Stop Time Status Last Admin Dose Admin Ondansetron HCl (Zofran Inj) 4 mg Q6H PRN IV 10/19/17 16:30 11/18/17 16:29 Allopurinol (Zyloprim Tab) 100 mg QAM PO 10/20/17 09:00 11/19/17 08:59 10/25/17 09:17 100 MG Pantoprazole Sodium (Protonix Tab) 40 mg QAM PO 10/20/17 09:00 11/19/17 08:59 10/25/17 09:16 40 MG Pravastatin Sodium (Pravachol Tab) 40 mg HS PO 10/19/17 21:00 11/18/17 20:59 10/24/17 23:17 40 MG Aspirin (Ecotrin Tab) 81 mg QAM PO 10/20/17 09:00 11/19/17 08:59 10/25/17 09:16 81 MG Tramadol HCl (Ultram Tab) 25 mg Q6H PRN PO 10/22/17 05:30 11/21/17 05:29 10/22/17 06:02 25 MG Amiodarone HCl (Cordarone Tab) 400 mg TIDM PO 10/23/17 11:30 11/22/17 11:29 10/25/17 16:46 400 MG Heparin Sodium/ Dextrose 500 ml @ 11 mls/hr Q24H PRN IV 10/23/17 11:00 11/22/17 10:59 Future hold 10/25/17 11:45 11 MLS/HR Docusate Sodium (coLACE CAP) 100 mg BID PRN PO 10/24/17 19:00 11/23/17 18:59 Ipratropium [place] (Atrovent 0.02% 0.5MG/2.5ML Neb) 0.5 mg Q4H PRN INH 10/25/17 03:15 11/24/17 03:14 Levalbuterol (Xopenex 1.25MG/ 0.5ML Neb) 1.25 mg Q4H PRN INH 10/25/17 03:15 11/24/17 03:14 Miscellaneous Information (Consult) 1 ea UD PRN N/A 10/25/17 09:00 11/24/17 08:59 Piperacillin Sod/ Tazobactam Sod 3.375 gm/Dextrose 115 ml @ 28.75 mls/ hr Q12H IV 10/25/17 12:00 11/01/17 11:59 10/25/17 11:43 28.75 MLS/HR Acetaminophen (Tylenol Tab) 650 mg Q4H PRN PO 10/25/17 06:15 11/24/17 06:14 Miscellaneous Information (Icu Protocol For Hyperglycemia) 1 ea PRN PRN N/A 10/25/17 06:15 10/27/17 06:14 Prochlorperazine Edisylate 5 mg/ Syringe 5 ml @ 5 mls/min Q6H PRN IV 10/25/17 06:15 11/24/17 06:14 Hydrocortisone Sodium Succinate 50 mg/Syringe 1 ml @ 4 mls/min Q6H IV 10/25/17 07:00 11/24/17 06:59 10/25/17 14:34 4 MLS/MIN Ipratropium [place] (Atrovent 0.02% 0.5MG/2.5ML Neb) 0.5 mg Q6R INH 10/25/17 09:00 11/24/17 08:59 10/25/17 14:49 0.5 MG Levalbuterol (Xopenex 1.25MG/ 0.5ML Neb) 1.25 mg Q6R INH 10/25/17 09:00 11/24/17 08:59 10/25/17 14:49 1.25 MG Miscellaneous Information (Consult) 1 ea UD PRN N/A 10/25/17 07:00 11/24/17 06:59 Potassium Chloride/Sodium Chloride 1,000 ml @ 75 mls/hr [id number] IV 10/25/17 16:45 11/24/17 16:44 10/25/17 17:16 75 MLS/HR
[2017-10-25] MEDS: PRAVASTATIN SOD 40 MG TAB PO SCH (19:40)
[2017-10-26] VITALS (19 sets, daily range): BP systolic 99–158; BP diastolic 57–98; PULSE 67–129; TEMP 36.4–36.5; O2SAT 92–100
[2017-10-26] MEDS: PIPERACILL/TAZOBAC IV 3.375 GM in DEXTROSE 5% 100ML IV SCH ×2 (00:17→11:55)
[2017-10-26] MEDS: HYDROCORTISONE IV 50 MG in SYRINGE 0 ML IV SCH ×4 (00:17→19:34)
[2017-10-26] MEDS: IPRATROPIUM BROMIDE NEB SOLN 0.02% 2.5 ML VIAL INH SCH ×4 (02:12→19:04)
[2017-10-26] MEDS: LEVALBUTEROL 1.25MG/0.5ML NEB INH SCH ×4 (02:13→19:04)
[2017-10-26 06:03] LABS: HEMATOCRIT 28.5 % (37-47); HEMOGLOBIN 9.7 g/dL (12.0-16.0); MEAN CELL VOLUME 93.8 fL (80-100); MEAN CORPUSCULAR HEMOGLOBIN 31.9 pg (25-34); MEAN PLATELET VOLUME 9.6 fL (7.4-10.4); PLATELET COUNT 139 K/uL (130-400); RED CELL DISTRIBUTION WIDTH CV 15.8 % (11.5-14.5); WHITE BLOOD COUNT 20.52 K/uL (4.8-10.8)
[2017-10-26] MEDS: NSS + 20MEQ KCL 1000ML 1,000 ML IV SCH (06:22)
[2017-10-26] MEDS: AMIODARONE 200 MG TAB PO SCH ×2 (06:22→15:36)
[2017-10-26 06:41] LABS: PTT PATIENT 64.7 SECONDS (21.0-31.0)
[2017-10-26 06:47] LABS: BASO ABS # 0.01 K/uL (0-0.2); IG# 0.31 K/uL (0.00-0.02); LYMPH ABS # 0.41 K/uL (1.2-3.4); MONO % 2.2 %; MONO ABS # 0.46 K/uL (0.11-0.59); NEUT % 94.3 %; NEUT ABS # 19.33 K/uL (1.4-6.5)
[2017-10-26 06:52] LABS: CALCIUM 7.8 mg/dl (8.5-10.1); CREATININE 1.66 mg/dl (0.60-1.20); PHOSPHORUS 4.3 mg/dl (2.5-4.9); POTASSIUM 4.1 mmol/L (3.5-5.1)
[2017-10-26] MEDS: PANTOprazole SOD 40 MG TAB PO SCH (08:08)
[2017-10-26] MEDS: ALLOPURINOL 100 MG TAB PO SCH (08:08)
[2017-10-26] MEDS: ASPIRIN 81 MG ECTAB PO SCH (08:08)
[2017-10-26] MEDS: TRAMADOL HCL 50 MG TAB PO PRN ×2 (08:11→21:00)
[2017-10-26] MEDS ORDERED: VANCOMYCIN IV 750 MG in SODIUM CHLORIDE 0.9% 250ML 250 ML IV ONE (09:30)
--- NOTE | 2017-10-26 11:31 | Pharmacy Progress Note ---
Pharmacy Abx Dose Progress Nt Date of Service Oct 26, 2017. Pharmacy Dosing Scope The patient is currently receiving the following antimicrobial agents per Pharmacy consult: * VANCOMYCIN IV * ZOSYN IV Objective Height (Feet): 5 Height (Inches): 2.00 Weight (Kilograms): 56.700 Vital Signs (Past 12Hrs) Vital Signs Past 12 Hours Date Time Temp Pulse Resp B/P (MAP) Pulse Ox O2 Delivery O2 Flow Rate FiO2 10/26/17 10:00 113 25 99/84 (89) 97 Room Air 10/26/17 08:00 36.4 129 25 110/90 (97) 95 Room Air 10/26/17 08:00 Room Air 10/26/17 07:15 79 20 95 Nasal Cannula 2.0 10/26/17 06:00 67 19 154/73 (100) 95 Nasal Cannula 2.0 10/26/17 04:00 36.5 73 15 122/57 (78) 97 Nasal Cannula 2.0 10/26/17 04:00 96 Nasal Cannula 2.0 10/26/17 04:00 73 15 122/57 (78) 97 10/26/17 02:32 84 23 109/72 (84) 100 Nasal Cannula 2.0 10/26/17 02:32 84 23 109/72 (84) 100 10/26/17 02:32 84 23 109/72 (84) 100 10/26/17 02:13 77 14 95 Nasal Cannula 2.0 10/26/17 02:00 21 100 10/26/17 02:00 21 100 10/26/17 00:00 18 125/59 (81) 100 10/26/17 00:00 18 125/59 (81) 100 10/26/17 00:00 72 18 125/59 (81) 100 Room Air 10/25/17 23:59 93 Room Air Lab Results (24Hrs) Laboratory Tests (24 Hours) Test 10/26/17 05:42 White Blood Count 20.52 K/uL (4.8-10.8) H Red Blood Count 3.04 M/uL (4.2-5.4) L Hemoglobin 9.7 g/dL (12.0-16.0) L Hematocrit 28.5 % (37-47) L Mean Corpuscular Volume 93.8 fL (80-100) Mean Corpuscular Hemoglobin 31.9 pg (25-34) Mean Corpuscular Hemoglobin Concent 34.0 g/dl (32-36) Platelet Count 139 K/uL (130-400) Mean Platelet Volume 9.6 fL (7.4-10.4) Neutrophils (%) (Auto) 94.3 % Lymphocytes (%) (Auto) 2.0 % Monocytes (%) (Auto) 2.2 % Eosinophils (%) (Auto) 0.0 % Basophils (%) (Auto) 0.0 % Neutrophils # (Auto) 19.33 K/uL (1.4-6.5) H Lymphocytes # (Auto) 0.41 K/uL (1.2-3.4) L Monocytes # (Auto) 0.46 K/uL (0.11-0.59) Eosinophils # (Auto) 0.00 K/uL (0-0.5) Basophils # (Auto) 0.01 K/uL (0-0.2) Micro Results Date/Time Source Procedure Growth Status 10/24/17 21:18 Blood Blood Culture - Preliminary NO GROWTH TO DATE. Resulted 10/24/17 21:07 Blood Blood Culture - Preliminary NO GROWTH TO DATE. Resulted 10/19/17 12:41 Blood Blood Culture - Final NO GROWTH Complete 10/19/17 12:27 Blood Blood Culture - Final NO GROWTH Complete 10/25/17 07:45 Nasal MRSA DNA Surveillance Screen - Final Specimen Negative for MRSA by DNA Probe Complete 10/19/17 16:52 Nasal MRSA DNA Surveillance Screen - Final Specimen Negative for MRSA by DNA Probe Complete 10/24/17 22:15 Stool C.difficile Toxin B Gene (PCR) - Final No C. difficile toxin B gene detected Complete 10/24/17 22:15 Stool WBC Smear - Final Resulted 10/24/17 22:15 Stool Shiga Toxin Test - Preliminary No E. Coli shiga toxin 1 or shiga tox... Resulted 10/24/17 22:15 Stool Stool Culture - Preliminary NO SALMONELLA ISOLATED TO DATE,... Resulted 10/25/17 09:50 Urine,Catheterized Urine Culture Pending Received 10/19/17 15:21 Urine,Catheterized Urine Culture - Final Escherichia Coli Klebsiella Pneumoniae Complete Risk Factors for Resistance * Hospitalization for 48 hours or more within the past 90 days * Current hospitalization > 5 days * Antimicrobial use within the last 90 days (received Zosyn, Augmentin + Vancomycin earlier this admission) Assessment & Plan Assessment * 87 year old female transferred to ICU for hypotension, hypoxemia, and productive cough * Vancomycin + Zosyn IV started empirically on 10/25; today is Day # 2 abx therapy for possible pneumonia, possible UTI * Of note, this patient received Zosyn IV 10/19 thru 10/23 and was then transitioned to Augmentin PO 10/23 thru 10/24 * Procal 41.78 3, WBC continues to climb, pt remains afebrile however, RR 15-25 today * nasal swab negative for MRSA, sputum cx cancelled, no growth in BLCXs to date * 10/25 UA did not appear reflective of UTI (negative nitrate, negative LE, 1-5 WBC, no bacteria) * Renal fxn somewhat improved based upon SCr (1.77 -->1.66), U.O. adequate ( 1265mL yesterday) Plan Vancomycin IV * Random vancomycin level this AM = 14.1; this level was drawn ~20-21 hours after a 1250mg loading dose * Will give 750mg (13.2mg/kg) IV x 1 this AM and repeat random level w/ AM labs tomorrow * I still estimate the half-life to be > 24 hours in this patient despite slight improvement in renal fxn * Goal trough level for pulm infxn : 15 to 20 mcg/mL Piperacillin/tazobactam * Continue 3.375 g IV extended infusion every 12 hours for CrCl 20 mL/min or less and BMI 22.9 Pharmacy will continue to follow and will adjust dose/frequency as necessary. Thank you.
--- NOTE | 2017-10-26 11:33 | Cardiology Follow-Up ---
Subjective Subjective Date of Service: Oct 26, 2017. Pt evaluation today including: conversation w/ patient, conversation w/ family , physical exam, chart review, lab review, review of studies, conversation w/ proposal consultant, review of inpatient medication list Additional Details: The patient is more conversive today. She remains in rate controlled atrial fibrillation. For now while she is in the hospital she is anticoagulated with heparin however, at this time I do not believe that she is a candidate for long- term outpatient anticoagulation. Problem List Medical Problems: (1) Acute renal failure Status: Acute (2) Cellulitis of left foot Status: Acute (3) Dehydration Status: Acute (4) Hypotension Status: Acute (5) Sepsis Status: Acute Review of Systems Musculoskeletal: + see HPI Female : + see HPI Psychiatric: + anxiety Objective Vital Signs Last Vital Signs Documentation Date Time Temp Pulse Resp B/P (MAP) Pulse Ox O2 Delivery O2 Flow Rate FiO2 10/26/17 10:00 113 25 99/84 (89) 97 Room Air 10/26/17 08:00 36.4 10/26/17 07:15 2.0 Physical Exam: General Appearance: no apparent distress ENT: normal ENT inspection, hearing grossly normal, pharynx normal Neck: thyroid normal, no JVD Respiratory/Chest: lungs clear, no respiratory distress, no accessory muscle use Cardiovascular: regular rate, rhythm, no edema, no murmur, + irregularly irregular Abdomen: normal bowel sounds, non tender, soft, no organomegaly Extremities: normal inspection, no pedal edema Neurologic/Psychiatric: alert, normal mood/affect, + motor weakness Skin: normal color, warm/dry, no rash Lymphatic: no adenopathy Assessment and Plan Impression: 1. Paroxysmal atrial fibrillation 2. Dementia 3. Pneumonia, UTI, diarrhea 4. Chronic kidney disease 5. History of previous stroke Recommendations: At this point the patient is clinically stable. Continue with amiodarone. As described above I would continue anticoagulation only while the patient's in the hospital. After discharge I believe she is at risk for long- term anticoagulation. Medications: Current Inpatient Medications Medications (Trade) Dose Ordered Sig/Alicia Route Start Time Stop Time Status Last Admin Dose Admin Ondansetron HCl (Zofran Inj) 4 mg Q6H PRN IV 10/19/17 16:30 11/18/17 16:29 Allopurinol (Zyloprim Tab) 100 mg QAM PO 10/20/17 09:00 11/19/17 08:59 10/26/17 08:08 100 MG Pantoprazole Sodium (Protonix Tab) 40 mg QAM PO 10/20/17 09:00 11/19/17 08:59 10/26/17 08:08 40 MG Pravastatin Sodium (Pravachol Tab) 40 mg HS PO 10/19/17 21:00 11/18/17 20:59 10/24/17 23:17 40 MG Aspirin (Ecotrin Tab) 81 mg QAM PO 10/20/17 09:00 11/19/17 08:59 10/26/17 08:08 81 MG Tramadol HCl (Ultram Tab) 25 mg Q6H PRN PO 10/22/17 05:30 11/21/17 05:29 10/26/17 08:11 25 MG Amiodarone HCl (Cordarone Tab) 400 mg TIDM PO 10/23/17 11:30 11/22/17 11:29 10/26/17 06:22 400 MG Heparin Sodium/ Dextrose 500 ml @ 11 mls/hr Q24H PRN IV 10/23/17 11:00 11/22/17 10:59 Future hold 10/25/17 11:45 11 MLS/HR Docusate Sodium (coLACE CAP) 100 mg BID PRN PO 10/24/17 19:00 11/23/17 18:59 Ipratropium [place] (Atrovent 0.02% 0.5MG/2.5ML Neb) 0.5 mg Q4H PRN INH 10/25/17 03:15 11/24/17 03:14 Levalbuterol (Xopenex 1.25MG/ 0.5ML Neb) 1.25 mg Q4H PRN INH 10/25/17 03:15 11/24/17 03:14 Miscellaneous Information (Consult) 1 ea UD PRN N/A 10/25/17 09:00 11/24/17 08:59 Piperacillin Sod/ Tazobactam Sod 3.375 gm/Dextrose 115 ml @ 28.75 mls/ hr Q12H IV 10/25/17 12:00 11/01/17 11:59 10/26/17 00:17 28.75 MLS/HR Acetaminophen (Tylenol Tab) 650 mg Q4H PRN PO 10/25/17 06:15 11/24/17 06:14 Miscellaneous Information (Icu Protocol For Hyperglycemia) 1 ea PRN PRN N/A 10/25/17 06:15 10/27/17 06:14 Prochlorperazine Edisylate 5 mg/ Syringe 5 ml @ 5 mls/min Q6H PRN IV 10/25/17 06:15 11/24/17 06:14 Hydrocortisone Sodium Succinate 50 mg/Syringe 1 ml @ 4 mls/min Q6H IV 10/25/17 07:00 11/24/17 06:59 10/26/17 06:22 4 MLS/MIN Ipratropium [place] (Atrovent 0.02% 0.5MG/2.5ML Neb) 0.5 mg Q6R INH 10/25/17 09:00 11/24/17 08:59 10/26/17 07:15 0.5 MG Levalbuterol (Xopenex 1.25MG/ 0.5ML Neb) 1.25 mg Q6R INH 10/25/17 09:00 11/24/17 08:59 10/26/17 07:15 1.25 MG Miscellaneous Information (Consult) 1 ea UD PRN N/A 10/25/17 07:00 11/24/17 06:59 Potassium Chloride/Sodium Chloride 1,000 ml @ 75 mls/hr [id number] IV 10/25/17 16:45 11/24/17 16:44 10/26/17 06:22 75 MLS/HR Vancomycin HCl 750 mg/Sodium Chloride 265 ml @ 125 mls/hr ONE ONCE IV 10/26/17 09:30 10/26/17 11:37 10/26/17 10:23 125 MLS/HR Lab Results: Last 24 Hours Test 10/25/17 12:13 10/25/17 16:53 10/26/17 05:42 Bedside Glucose 122 mg/dl 152 mg/dl White Blood Count 20.52 K/uL Red Blood Count 3.04 M/uL Hemoglobin 9.7 g/dL Hematocrit 28.5 % Mean Corpuscular Volume 93.8 fL Mean Corpuscular Hemoglobin 31.9 pg Mean Corpuscular Hemoglobin Concent 34.0 g/dl Platelet Count 139 K/uL Mean Platelet Volume 9.6 fL Neutrophils (%) (Auto) 94.3 % Lymphocytes (%) (Auto) 2.0 % Monocytes (%) (Auto) 2.2 % Eosinophils (%) (Auto) 0.0 % Basophils (%) (Auto) 0.0 % Neutrophils # (Auto) 19.33 K/uL Lymphocytes # (Auto) 0.41 K/uL Monocytes # (Auto) 0.46 K/uL Eosinophils # (Auto) 0.00 K/uL Basophils # (Auto) 0.01 K/uL RDW Standard Deviation 54.0 fL RDW Coefficient of Variation 15.8 % Immature Granulocyte % (Auto) 1.5 % Immature Granulocyte # (Auto) 0.31 K/uL Echinocytes 1+ Activated Partial Thromboplast Time 64.7 SECONDS Partial Thromboplastin Ratio 2.5 Sodium Level 137 mmol/L Potassium Level 4.1 mmol/L Chloride Level 109 mmol/L Carbon Dioxide Level 15 mmol/L Anion Gap 13.0 mmol/L Blood Urea Nitrogen 30 mg/dl Creatinine 1.66 mg/dl Est Creatinine Clear Calc Drug Dose 18.9 ml/min Estimated GFR () 31.8 Estimated GFR (Non- 27.4 BUN/Creatinine Ratio 18.3 Random Glucose 131 mg/dl Calcium Level 7.8 mg/dl Phosphorus Level 4.3 mg/dl Magnesium Level 2.4 mg/dl Random Vancomycin Level 14.1 mcg/ml
--- NOTE | 2017-10-26 12:41 | Progress Note ---
Internal Med Progress Note Date of Service: Oct 26, 2017. Provider Documentation: SUBJECTIVE: The patient was seen and examined Feels better -asking about the heart rate Denies any symptoms OBJECTIVE: Vital Signs-as noted below Exam: General-No distress at reat Eyes-Normal ENT-normal Neck-supple Lungs-decreased breath sound bilaterally Heart-Irregular,no murmur appreciated Abdomen-Benign,no masses Extremities-Trace edema bilaterally Has chronic deformities in legs Neuro-AAOX3 Has been mobile with wheelchair Lab data as noted below. ASSESSMENT & PLAN: SEPSIS Has been in ICU for hypotension Possible related to aspiration pneumonia CXR showed showed new focal nodular opacity at the right lung base Elevated procalcitonin,Elevated WBC Started on Zosyn and vanco Blood cx and urine cx pending BP seems to be stable >100 systolic Feels better AFIB WITH RVR Hx of paroxysmal AF Started on Amiodarone drip/bolus Now on oral Amiodarone [id number] - score about 5 (Age,sex,CVA, HTN) Cardiology consult-appreciate input Check Echo::: * The left ventricle is normal in size. * There is moderate concentric left ventricular hypertrophy. * Ejection Fraction = 60-65%. * The right ventricular systolic function is normal. * The left atrium is mildly dilated. * Right atrial size is normal. * Aortic valve sclerosis moderate, without significant aortic valvular stenosis. * There is mild to moderate mitral regurgitation. PNEUMONIA CXR on admission showed left lower lobe infiltrate. Repeat cxr showed Focal nodular opacity at the right lung base Increased WCC and elevated procalcitonin Continue intravenous piperacillin/tazobactam and Vanco UTI Urine cx growth gram negative bacilli Growth E-coli and Klebsiella On IV Zosyn Abx change to amoxicillin D/c amoxicillin since pt in on empirical abx Repeat urine cx pending . DIARRHEA No more episode of diarrhea Stool for C-diff negative Daughter said pt has diarrhea twice a week and constipated for the other days HYPOTENSION Secondary to sepsis Received 3L IVF last night BP improved No pressors required Continue monitor BP-remains stable ABNORMAL EKG / ELEVATED TROPONIN Troponin was 0.051 on admission Possible related to infection vs dehydration EKG shows inferolateral T-wave changes. Repeat trop trending down to normal denies any chest pain Continue metoprolol, aspirin and statin. HYPERTENSION BP elevated on admission Metoprolol increased back to 50mg BID hydrochlorothiazide on hold Resume lisinopril Starting on IV hydralazine prn Continue monitor BP Hold BP med due to hypotension for now CKD III Serum creatinine 1.59 on admission Worsening renal function CXR showed pulmonary edema Has been diuresis on her own No additional IVF fluid Monitor BMP GOUT Continue allopurinol and prednisone. Stable RESUSCITATION STATUS FULL CODE VTE PROPHYLAXIS Nonambulatory. 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 DISPOSITION Monitor in the ICU Vital Signs: Date Time Temp Pulse Resp B/P (MAP) Pulse Ox O2 Delivery O2 Flow Rate FiO2 10/26/17 12:00 Room Air 10/26/17 12:00 36.4 100 25 115/73 (87) 96 Room Air 10/26/17 10:00 113 25 99/84 (89) 97 Room Air 10/26/17 08:00 36.4 129 25 110/90 (97) 95 Room Air 10/26/17 08:00 Room Air 10/26/17 07:15 79 20 95 Nasal Cannula 2.0 10/26/17 06:00 67 19 154/73 (100) 95 Nasal Cannula 2.0 10/26/17 04:00 36.5 73 15 122/57 (78) 97 Nasal Cannula 2.0 10/26/17 04:00 96 Nasal Cannula 2.0 10/26/17 04:00 73 15 122/57 (78) 97 10/26/17 02:32 84 23 109/72 (84) 100 Nasal Cannula 2.0 10/26/17 02:32 84 23 109/72 (84) 100 10/26/17 02:32 84 23 109/72 (84) 100 10/26/17 02:13 77 14 95 Nasal Cannula 2.0 10/26/17 02:00 21 100 10/26/17 02:00 21 100 10/26/17 00:00 18 125/59 (81) 100 10/26/17 00:00 18 125/59 (81) 100 10/26/17 00:00 72 18 125/59 (81) 100 Room Air 10/25/17 23:59 93 Room Air 10/25/17 22:00 76 13 95/45 (62) 97 Room Air 10/25/17 21:15 77 19 103/56 (72) 97 Room Air 10/25/17 20:52 76 14 96 Nasal Cannula 2.0 10/25/17 20:03 36.6 81 23 122/64 (83) 98 Room Air 10/25/17 20:00 Room Air 10/25/17 19:34 76 14 129/63 (85) 95 Nasal Cannula 2.0 10/25/17 19:02 69 16 113/60 (77) 97 Nasal Cannula 2.0 10/25/17 18:49 70 14 126/59 (81) 98 Nasal Cannula 2.0 10/25/17 18:32 70 19 120/58 (78) 97 Nasal Cannula 2.0 10/25/17 18:30 70 19 118/62 (80) 94 Nasal Cannula 2.0 10/25/17 18:02 70 14 85/49 (61) 98 Nasal Cannula 2.0 10/25/17 17:32 69 13 96/54 (68) 97 Nasal Cannula 2.0 10/25/17 17:17 69 16 115/56 (75) 100 10/25/17 17:04 72 17 113/62 (79) 100 Nasal Cannula 2.0 10/25/17 16:48 76 19 83/74 (77) 96 Nasal Cannula 2.0 10/25/17 16:33 68 15 92/51 (65) 98 Nasal Cannula 2.0 10/25/17 16:17 71 16 97/54 (68) 98 Nasal Cannula 2.0 10/25/17 16:02 36.5 70 15 87/48 (61) 97 Nasal Cannula 2.0 10/25/17 16:00 Nasal Cannula 2.0 10/25/17 15:47 71 15 98/53 (68) 96 Nasal Cannula 2.0 10/25/17 15:32 72 15 105/55 (72) 98 Nasal Cannula 2.0 10/25/17 15:22 78 17 106/59 (75) 96 Nasal Cannula 2.0 10/25/17 14:49 72 14 99 Nasal Cannula 2.0 10/25/17 14:32 73 15 73/44 (54) 99 Nasal Cannula 2.0 10/25/17 14:00 68 13 87/43 (58) 100 Nasal Cannula 2.0 10/25/17 13:00 72 17 115/60 (78) 98 Nasal Cannula 2.0 10/25/17 12:42 98 Nasal Cannula 2.0 Lab Results: Results Past 24 Hours Test 10/25/17 16:53 10/26/17 05:42 10/26/17 11:40 Range/Units Bedside Glucose 152 145 70-90 mg/dl White Blood Count 20.52 4.8-10.8 K/uL Red Blood Count 3.04 4.2-5.4 M/uL Hemoglobin 9.7 12.0-16.0 g/dL Hematocrit 28.5 37-47 % Mean Corpuscular Volume 93.8 80-100 fL Mean Corpuscular Hemoglobin 31.9 25-34 pg Mean Corpuscular Hemoglobin Concent 34.0 32-36 g/dl Platelet Count 139 130-400 K/uL Mean Platelet Volume 9.6 7.4-10.4 fL Neutrophils (%) (Auto) 94.3 % Lymphocytes (%) (Auto) 2.0 % Monocytes (%) (Auto) 2.2 % Eosinophils (%) (Auto) 0.0 % Basophils (%) (Auto) 0.0 % Neutrophils # (Auto) 19.33 1.4-6.5 K/uL Lymphocytes # (Auto) 0.41 1.2-3.4 K/uL Monocytes # (Auto) 0.46 0.11-0.59 K/uL Eosinophils # (Auto) 0.00 0-0.5 K/uL Basophils # (Auto) 0.01 0-0.2 K/uL RDW Standard Deviation 54.0 36.4-46.3 fL RDW Coefficient of Variation 15.8 11.5-14.5 % Immature Granulocyte % (Auto) 1.5 % Immature Granulocyte # (Auto) 0.31 0.00-0.02 K/uL Echinocytes 1+ Activated Partial Thromboplast Time 64.7 21.0-31.0 SECONDS Partial Thromboplastin Ratio 2.5 Sodium Level 137 136-145 mmol/L Potassium Level 4.1 3.5-5.1 mmol/L Chloride Level 109 98-107 mmol/L Carbon Dioxide Level 15 21-32 mmol/L Anion Gap 13.0 3-11 mmol/L Blood Urea Nitrogen 30 7-18 mg/dl Creatinine 1.66 0.60-1.20 mg/dl Est Creatinine Clear Calc Drug Dose 18.9 ml/min Estimated GFR () 31.8 Estimated GFR (Non- 27.4 BUN/Creatinine Ratio 18.3 10-20 Random Glucose 131 70-99 mg/dl Calcium Level 7.8 8.5-10.1 mg/dl Phosphorus Level 4.3 2.5-4.9 mg/dl Magnesium Level 2.4 1.8-2.4 mg/dl Random Vancomycin Level 14.1 mcg/ml
--- NOTE | 2017-10-26 16:20 | Critical Care Progress Note ---
Critical Care Progress Note Date of Service Oct 26, 2017. Attending Dr. Chambers Subjective Much more awake today, conversant Objective General: Mildly confused, comfortable, awake and alert Lungs: Clear to auscultation CVS:S1S2 irregular Abdomen: Soft Ext: Contracted extremities Assessment & Plan 87 year old female with paroxysmal a-fib, with severe sepsis Problems: Severe sepsis secondary to PNA/UTI Paroxysmal a-fib h/o CVA CKD Plan: Continue broad spectrum Abx for now. Blood cultures repeated, no growth so far Urine culture repeated as well, only 1000 colonies Sputum culture sent Loaded with amiodarone, remains in NSR today. On PO amiodarone now Anticoagulated as well. Probably not a good shelter candidate though. Urine output improved. Fluids were restarted yesterday afternoon On stress dose steroids now. Eventual video swallow evaluation Critical care time spent with the patient, reviewing chart, discussing with consultants, excluding procedures, greater than 25 minutes Had an extensive discussion with the patient and the daughters. They issued DNI. Not DNR for the time being at the patient's request, would give it a trial of CPR. Palliative care consultation appreciated. Hospice services to be initiated at home. May be transferred out of the ICU, will sign off for the time being Data Medications: Current Inpatient Medications Medications (Trade) Dose Ordered Sig/Alicia Route Start Time Stop Time Status Last Admin Dose Admin Ondansetron HCl (Zofran Inj) 4 mg Q6H PRN IV 10/19/17 16:30 11/18/17 16:29 Allopurinol (Zyloprim Tab) 100 mg QAM PO 10/20/17 09:00 11/19/17 08:59 10/26/17 08:08 100 MG Pantoprazole Sodium (Protonix Tab) 40 mg QAM PO 10/20/17 09:00 11/19/17 08:59 10/26/17 08:08 40 MG Pravastatin Sodium (Pravachol Tab) 40 mg HS PO 10/19/17 21:00 11/18/17 20:59 10/24/17 23:17 40 MG Aspirin (Ecotrin Tab) 81 mg QAM PO 10/20/17 09:00 11/19/17 08:59 10/26/17 08:08 81 MG Tramadol HCl (Ultram Tab) 25 mg Q6H PRN PO 10/22/17 05:30 4/1/18 05:29 10/26/17 08:11 25 MG Heparin Sodium/ Dextrose 500 ml @ 11 mls/hr Q24H PRN IV 10/23/17 11:00 11/22/17 10:59 Future hold 10/25/17 11:45 11 MLS/HR Docusate Sodium (coLACE CAP) 100 mg BID PRN PO 10/24/17 19:00 11/23/17 18:59 Ipratropium [place] (Atrovent 0.02% 0.5MG/2.5ML Neb) 0.5 mg Q4H PRN INH 10/25/17 03:15 11/24/17 03:14 Levalbuterol (Xopenex 1.25MG/ 0.5ML Neb) 1.25 mg Q4H PRN INH 10/25/17 03:15 11/24/17 03:14 Miscellaneous Information (Consult) 1 ea UD PRN N/A 10/25/17 09:00 11/24/17 08:59 Piperacillin Sod/ Tazobactam Sod 3.375 gm/Dextrose 115 ml @ 28.75 mls/ hr Q12H IV 10/25/17 12:00 11/01/17 11:59 10/26/17 11:55 28.75 MLS/HR Acetaminophen (Tylenol Tab) 650 mg Q4H PRN PO 10/25/17 06:15 11/24/17 06:14 Miscellaneous Information (Icu Protocol For Hyperglycemia) 1 ea PRN PRN N/A 10/25/17 06:15 10/27/17 06:14 Prochlorperazine Edisylate 5 mg/ Syringe 5 ml @ 5 mls/min Q6H PRN IV 10/25/17 06:15 11/24/17 06:14 Hydrocortisone Sodium Succinate 50 mg/Syringe 1 ml @ 4 mls/min Q6H IV 10/25/17 07:00 11/24/17 06:59 10/26/17 13:36 4 MLS/MIN Ipratropium [place] (Atrovent 0.02% 0.5MG/2.5ML Neb) 0.5 mg Q6R INH 10/25/17 09:00 11/24/17 08:59 10/26/17 13:59 0.5 MG Levalbuterol (Xopenex 1.25MG/ 0.5ML Neb) 1.25 mg Q6R INH 10/25/17 09:00 11/24/17 08:59 10/26/17 13:59 1.25 MG Miscellaneous Information (Consult) 1 ea UD PRN N/A 10/25/17 07:00 11/24/17 06:59 Potassium Chloride/Sodium Chloride 1,000 ml @ 75 mls/hr [id number] IV 10/25/17 16:45 11/24/17 16:44 10/26/17 06:22 75 MLS/HR Amiodarone HCl (Cordarone Tab) 400 mg BIDM PO 10/26/17 16:30 11/22/17 11:29 10/26/17 15:36 400 MG I & O: 24-Hour Column 10/27/17 08:00 Intake Total 713 ml Output Total 550 ml Balance 163 ml Vital Signs: Date Time Temp Pulse Resp B/P (MAP) Pulse Ox O2 Delivery O2 Flow Rate FiO2 10/26/17 14:00 95 20 128/83 (98) 100 Room Air 10/26/17 13:59 109 18 96 Room Air 10/26/17 12:00 Room Air 10/26/17 12:00 36.4 100 25 115/73 (87) 96 Room Air 10/26/17 10:00 113 25 99/84 (89) 97 Room Air 10/26/17 08:30 Nasal Cannula 10/26/17 08:00 36.4 129 25 110/90 (97) 95 Room Air 10/26/17 08:00 Room Air 10/26/17 07:15 79 20 95 Nasal Cannula 2.0 10/26/17 06:00 67 19 154/73 (100) 95 Nasal Cannula 2.0 10/26/17 04:00 36.5 73 15 122/57 (78) 97 Nasal Cannula 2.0 10/26/17 04:00 96 Nasal Cannula 2.0 10/26/17 04:00 73 15 122/57 (78) 97 10/26/17 02:32 84 23 109/72 (84) 100 Nasal Cannula 2.0 10/26/17 02:32 84 23 109/72 (84) 100 10/26/17 02:32 84 23 109/72 (84) 100 10/26/17 02:13 77 14 95 Nasal Cannula 2.0 10/26/17 02:00 21 100 10/26/17 02:00 21 100 10/26/17 00:00 18 125/59 (81) 100 10/26/17 00:00 18 125/59 (81) 100 10/26/17 00:00 72 18 125/59 (81) 100 Room Air 10/25/17 23:59 93 Room Air 10/25/17 22:00 76 13 95/45 (62) 97 Room Air 10/25/17 21:15 77 19 103/56 (72) 97 Room Air 10/25/17 20:52 76 14 96 Nasal Cannula 2.0 10/25/17 20:03 36.6 81 23 122/64 (83) 98 Room Air 10/25/17 20:00 Room Air 10/25/17 19:34 76 14 129/63 (85) 95 Nasal Cannula 2.0 10/25/17 19:02 69 16 113/60 (77) 97 Nasal Cannula 2.0 10/25/17 18:49 70 14 126/59 (81) 98 Nasal Cannula 2.0 10/25/17 18:32 70 19 120/58 (78) 97 Nasal Cannula 2.0 10/25/17 18:30 70 19 118/62 (80) 94 Nasal Cannula 2.0 10/25/17 18:02 70 14 85/49 (61) 98 Nasal Cannula 2.0 10/25/17 17:32 69 13 96/54 (68) 97 Nasal Cannula 2.0 10/25/17 17:17 69 16 115/56 (75) 100 10/25/17 17:04 72 17 113/62 (79) 100 Nasal Cannula 2.0 10/25/17 16:48 76 19 83/74 (77) 96 Nasal Cannula 2.0 10/25/17 16:33 68 15 92/51 (65) 98 Nasal Cannula 2.0 10/25/17 16:17 71 16 97/54 (68) 98 Nasal Cannula 2.0 10/25/17 16:02 36.5 70 15 87/48 (61) 97 Nasal Cannula 2.0 10/25/17 16:00 Nasal Cannula 2.0 Laboratory Results: Last 24 Hours Test 10/25/17 16:53 10/26/17 05:42 10/26/17 06:30 10/26/17 11:40 Bedside Glucose 152 mg/dl 129 mg/dl 145 mg/dl White Blood Count 20.52 K/uL Red Blood Count 3.04 M/uL Hemoglobin 9.7 g/dL Hematocrit 28.5 % Mean Corpuscular Volume 93.8 fL Mean Corpuscular Hemoglobin 31.9 pg Mean Corpuscular Hemoglobin Concent 34.0 g/dl Platelet Count 139 K/uL Mean Platelet Volume 9.6 fL Neutrophils (%) (Auto) 94.3 % Lymphocytes (%) (Auto) 2.0 % Monocytes (%) (Auto) 2.2 % Eosinophils (%) (Auto) 0.0 % Basophils (%) (Auto) 0.0 % Neutrophils # (Auto) 19.33 K/uL Lymphocytes # (Auto) 0.41 K/uL Monocytes # (Auto) 0.46 K/uL Eosinophils # (Auto) 0.00 K/uL Basophils # (Auto) 0.01 K/uL RDW Standard Deviation 54.0 fL RDW Coefficient of Variation 15.8 % Immature Granulocyte % (Auto) 1.5 % Immature Granulocyte # (Auto) 0.31 K/uL Echinocytes 1+ Activated Partial Thromboplast Time 64.7 SECONDS Partial Thromboplastin Ratio 2.5 Sodium Level 137 mmol/L Potassium Level 4.1 mmol/L Chloride Level 109 mmol/L Carbon Dioxide Level 15 mmol/L Anion Gap 13.0 mmol/L Blood Urea Nitrogen 30 mg/dl Creatinine 1.66 mg/dl Est Creatinine Clear Calc Drug Dose 18.9 ml/min Estimated GFR () 31.8 Estimated GFR (Non- 27.4 BUN/Creatinine Ratio 18.3 Random Glucose 131 mg/dl Calcium Level 7.8 mg/dl Phosphorus Level 4.3 mg/dl Magnesium Level 2.4 mg/dl Random Vancomycin Level 14.1 mcg/ml
--- NOTE | 2017-10-26 17:55 | Palliative Care Consultation ---
Consultation Date of Consultation: Oct 26, 2017. Requesting Physician: Dr Chambers Attending Physician: Dr Chambers Reason for Consultation: Address Code status and goals of care History of Present Illness Pt is an 87 yo female with PMH of CVA with resultant contractures, PAF, CKD , HTN and a h/o colon cancer who was admitted on 10/19 for AMS and found to have a UTI and PNA - she dropped her BP and was transferred to the ICU. She responded well to IV hydration and is awake , alert and oriented this am. Met with pt and 2 daughters to discuss code status and goals of care. Pt lives with her youngest daughter who provides her 24 hour care. discussed resuscitation and what it would mean for her as well as home hospice to help with care at home and provide support to her daughter. Pt and family stated she would not want to be intubated. They are agreeable to a Hospice referral. Past Medical/Surgical History Medical History: Late effects of CVA, PAF, CKD - stage III, HTN, macular degeneration, h/o colon cancer, h/o DVT, h/o frequent UTI's. Surgical History: exploratory lap Family History + for DM, HTN, renal disease Social History Smoking Status: Never Smoker History of Alcohol Use: Yes (couple drinks of whiskey per week) Drug Use: none Marital Status: Housing Status: lives with family (youngest daughter) Occupation Status: retired 2 daughters, middle daughter in 2007 Review of Systems Constitutional: No fever, No chills Eyes: + problem reported (poor vision due to macular degeneration) ENT: + hearing loss Respiratory: + cough Cardiac: No chest pain Abdomen: No pain Musculoskeletal: + problem reported (LE and UE contractures) Female : + problem reported (frequent UTI's) Neurologic: + weakness Allergies Coded Allergies: Horse-derived Products (Verified Allergy, Unknown, Tetanus - with horse serum (equine), 10/19/17) NO KNOWN DRUG ALLERGIES (Verified Allergy, Unknown, ., 10/19/17) Medications Current Inpatient Medications Medications (Trade) Dose Ordered Sig/Alicia Route Start Time Stop Time Status Last Admin Dose Admin Ondansetron HCl (Zofran Inj) 4 mg Q6H PRN IV 10/19/17 16:30 11/18/17 16:29 Allopurinol (Zyloprim Tab) 100 mg QAM PO 10/20/17 09:00 3/30/18 08:59 10/26/17 08:08 100 MG Pantoprazole Sodium (Protonix Tab) 40 mg QAM PO 10/20/17 09:00 11/19/17 08:59 10/26/17 08:08 40 MG Pravastatin Sodium (Pravachol Tab) 40 mg HS PO 10/19/17 21:00 11/18/17 20:59 10/24/17 23:17 40 MG Aspirin (Ecotrin Tab) 81 mg QAM PO 10/20/17 09:00 11/19/17 08:59 10/26/17 08:08 81 MG Tramadol HCl (Ultram Tab) 25 mg Q6H PRN PO 10/22/17 05:30 11/21/17 05:29 10/26/17 08:11 25 MG Heparin Sodium/ Dextrose 500 ml @ 11 mls/hr Q24H PRN IV 10/23/17 11:00 11/22/17 10:59 Future hold 10/25/17 11:45 11 MLS/HR Docusate Sodium (coLACE CAP) 100 mg BID PRN PO 10/24/17 19:00 11/23/17 18:59 Ipratropium [place] (Atrovent 0.02% 0.5MG/2.5ML Neb) 0.5 mg Q4H PRN INH 10/25/17 03:15 11/24/17 03:14 Levalbuterol (Xopenex 1.25MG/ 0.5ML Neb) 1.25 mg Q4H PRN INH 10/25/17 03:15 11/24/17 03:14 Miscellaneous Information (Consult) 1 ea UD PRN N/A 10/25/17 09:00 11/24/17 08:59 Piperacillin Sod/ Tazobactam Sod 3.375 gm/Dextrose 115 ml @ 28.75 mls/ hr Q12H IV 10/25/17 12:00 11/01/17 11:59 10/26/17 11:55 28.75 MLS/HR Acetaminophen (Tylenol Tab) 650 mg Q4H PRN PO 10/25/17 06:15 11/24/17 06:14 Miscellaneous Information (Icu Protocol For Hyperglycemia) 1 ea PRN PRN N/A 10/25/17 06:15 10/27/17 06:14 Prochlorperazine Edisylate 5 mg/ Syringe 5 ml @ 5 mls/min Q6H PRN IV 10/25/17 06:15 11/24/17 06:14 Hydrocortisone Sodium Succinate 50 mg/Syringe 1 ml @ 4 mls/min Q6H IV 10/25/17 07:00 11/24/17 06:59 10/26/17 13:36 4 MLS/MIN Ipratropium [place] (Atrovent 0.02% 0.5MG/2.5ML Neb) 0.5 mg Q6R INH 10/25/17 09:00 11/24/17 08:59 10/26/17 13:59 0.5 MG Levalbuterol (Xopenex 1.25MG/ 0.5ML [facility]) 1.25 mg Q6R INH 10/25/17 09:00 11/24/17 08:59 10/26/17 13:59 1.25 MG Miscellaneous Information (Consult) 1 ea UD PRN N/A 10/25/17 07:00 11/24/17 06:59 Amiodarone HCl (Cordarone Tab) 400 mg BIDM PO 10/26/17 16:30 11/22/17 11:29 10/26/17 15:36 400 MG Parenteral Electrolyte Solution 1,000 ml @ 75 mls/hr [id number] IV 10/26/17 17:45 11/25/17 17:44 Physical Exam Date Time Temp Pulse Resp B/P (MAP) Pulse Ox O2 Delivery O2 Flow Rate FiO2 10/26/17 17:24 36.4 116 18 121/98 (106) 98 Room Air 10/26/17 17:20 98 Room Air 10/26/17 14:00 95 20 128/83 (98) 100 Room Air 10/26/17 13:59 109 18 96 Room Air 10/26/17 12:00 Room Air 10/26/17 12:00 36.4 100 25 115/73 (87) 96 Room Air 10/26/17 10:00 113 25 99/84 (89) 97 Room Air 10/26/17 08:30 Nasal Cannula 10/26/17 08:00 36.4 129 25 110/90 (97) 95 Room Air 10/26/17 08:00 Room Air 10/26/17 07:15 79 20 95 Nasal Cannula 2.0 10/26/17 06:00 67 19 154/73 (100) 95 Nasal Cannula 2.0 10/26/17 04:00 36.5 73 15 122/57 (78) 97 Nasal Cannula 2.0 10/26/17 04:00 96 Nasal Cannula 2.0 10/26/17 04:00 73 15 122/57 (78) 97 10/26/17 02:32 84 23 109/72 (84) 100 Nasal Cannula 2.0 10/26/17 02:32 84 23 109/72 (84) 100 10/26/17 02:32 84 23 109/72 (84) 100 10/26/17 02:13 77 14 95 Nasal Cannula 2.0 10/26/17 02:00 21 100 10/26/17 02:00 21 100 10/26/17 00:00 18 125/59 (81) 100 10/26/17 00:00 18 125/59 (81) 100 10/26/17 00:00 72 18 125/59 (81) 100 Room Air 10/25/17 23:59 93 Room Air 10/25/17 22:00 76 13 95/45 (62) 97 Room Air 10/25/17 21:15 77 19 103/56 (72) 97 Room Air 10/25/17 20:52 76 14 96 Nasal Cannula 2.0 10/25/17 20:03 36.6 81 23 122/64 (83) 98 Room Air 10/25/17 20:00 Room Air 10/25/17 19:34 76 14 129/63 (85) 95 Nasal Cannula 2.0 10/25/17 19:02 69 16 113/60 (77) 97 Nasal Cannula 2.0 10/25/17 18:49 70 14 126/59 (81) 98 Nasal Cannula 2.0 10/25/17 18:32 70 19 120/58 (78) 97 Nasal Cannula 2.0 10/25/17 18:30 70 19 118/62 (80) 94 Nasal Cannula 2.0 10/25/17 18:02 70 14 85/49 (61) 98 Nasal Cannula 2.0 General Appearance: no apparent distress (on O2) Eyes: EOMI ENT: + pertinent finding (CABAZON) Neck: supple Respiratory: + pertinent finding (mild increased WOB, SOB with speech - does not distress pt) Cardiovascular: + irregularly irregular Abdomen: non tender Musculoskeletal: hypertonicity Neurologic/Psychiatric: alert Skin: warm/dry Laboratory Results Last 24 Hours Test 10/26/17 05:42 10/26/17 06:30 10/26/17 11:40 10/26/17 17:14 White Blood Count 20.52 K/uL Red Blood Count 3.04 M/uL Hemoglobin 9.7 g/dL Hematocrit 28.5 % Mean Corpuscular Volume 93.8 fL Mean Corpuscular Hemoglobin 31.9 pg Mean Corpuscular Hemoglobin Concent 34.0 g/dl Platelet Count 139 K/uL Mean Platelet Volume 9.6 fL Neutrophils (%) (Auto) 94.3 % Lymphocytes (%) (Auto) 2.0 % Monocytes (%) (Auto) 2.2 % Eosinophils (%) (Auto) 0.0 % Basophils (%) (Auto) 0.0 % Neutrophils # (Auto) 19.33 K/uL Lymphocytes # (Auto) 0.41 K/uL Monocytes # (Auto) 0.46 K/uL Eosinophils # (Auto) 0.00 K/uL Basophils # (Auto) 0.01 K/uL RDW Standard Deviation 54.0 fL RDW Coefficient of Variation 15.8 % Immature Granulocyte % (Auto) 1.5 % Immature Granulocyte # (Auto) 0.31 K/uL Echinocytes 1+ Activated Partial Thromboplast Time 64.7 SECONDS Partial Thromboplastin Ratio 2.5 Sodium Level 137 mmol/L Potassium Level 4.1 mmol/L Chloride Level 109 mmol/L Carbon Dioxide Level 15 mmol/L Anion Gap 13.0 mmol/L Blood Urea Nitrogen 30 mg/dl Creatinine 1.66 mg/dl Est Creatinine Clear Calc Drug Dose 18.9 ml/min Estimated GFR () 31.8 Estimated GFR (Non- 27.4 BUN/Creatinine Ratio 18.3 Random Glucose 131 mg/dl Calcium Level 7.8 mg/dl Phosphorus Level 4.3 mg/dl Magnesium Level 2.4 mg/dl Random Vancomycin Level 14.1 mcg/ml Bedside Glucose 129 mg/dl 145 mg/dl 186 mg/dl Assessment & Plan Palliative Performance Scale: 30 % (1) Palliative care encounter Assessment & Plan: Met with pt and daughters at bedside and outside of the room with dr Chambers - pt stated she did not want intubated, family not sure about chest compressions or shock - they wish to speak to pt more and have her voice her wishes. (2) H/O: CVA (cerebrovascular accident) Status: Chronic Assessment & Plan: No worsening deficits (3) Paroxysmal atrial fibrillation Status: Chronic Assessment & Plan: Rate controlled Family agreeable to Hospice referral. Counseling and Coordination Total time 55 in with > 50% of time spent at bedside and with family discussing code status and goals of care as well as Hospice care at home
[2017-10-26] MEDS: NORMOSOL R 1,000 ML IV SCH (19:33)
[2017-10-26] MEDS: PRAVASTATIN SOD 40 MG TAB PO SCH (21:01)
[2017-10-27] VITALS (17 sets, daily range): BP systolic 131–198; BP diastolic 69–106; PULSE 73–96; TEMP 36.4–36.9; O2SAT 82–98
[2017-10-27] MEDS: HYDROCORTISONE IV 50 MG in SYRINGE 0 ML IV SCH ×4 (00:04→19:48)
[2017-10-27] MEDS: PIPERACILL/TAZOBAC IV 3.375 GM in DEXTROSE 5% 100ML IV SCH ×2 (00:04→12:42)
[2017-10-27] MEDS: LEVALBUTEROL 1.25MG/0.5ML NEB INH SCH ×4 (02:08→20:06)
[2017-10-27] MEDS: IPRATROPIUM BROMIDE NEB SOLN 0.02% 2.5 ML VIAL INH SCH ×4 (02:08→20:06)
[2017-10-27 05:45] LABS: HEMATOCRIT 25.4 % (37-47); HEMOGLOBIN 8.8 g/dL (12.0-16.0); MEAN CELL VOLUME 91.4 fL (80-100); MEAN CORPUSCULAR HEMOGLOBIN 31.7 pg (25-34); MEAN CORPUSCULAR HGB CONC 34.6 g/dl (32-36); MEAN PLATELET VOLUME 8.7 fL (7.4-10.4); PLATELET COUNT 131 K/uL (130-400); RED CELL DISTRIBUTION WIDTH CV 15.9 % (11.5-14.5); RED CELL DISTRIBUTION WIDTH SD 53.1 fL (36.4-46.3); WHITE BLOOD COUNT 18.72 K/uL (4.8-10.8)
[2017-10-27 06:05] LABS: BASO % 0.1 %; BASO ABS # 0.01 K/uL (0-0.2); LYMPH % 1.5 %; LYMPH ABS # 0.29 K/uL (1.2-3.4); MONO ABS # 0.37 K/uL (0.11-0.59); NEUT % 95.3 %; NEUT ABS # 17.85 K/uL (1.4-6.5)
[2017-10-27] MEDS: NORMOSOL R 1,000 ML IV SCH (06:08)
[2017-10-27] MEDS: AMIODARONE 200 MG TAB PO SCH ×2 (06:09→17:13)
[2017-10-27 06:17] LABS: CALCIUM 7.5 mg/dl (8.5-10.1); CREATININE 1.6 mg/dl (0.60-1.20); POTASSIUM 3.8 mmol/L (3.5-5.1)
[2017-10-27] MEDS: TRAMADOL HCL 50 MG TAB PO PRN ×2 (06:18→17:19)
[2017-10-27 06:22] LABS: PTT PATIENT 51.4 SECONDS (21.0-31.0)
--- NOTE | 2017-10-27 09:17 | Palliative Care Progress Note ---
Palliative Care Progress Note Date of Service Oct 27, 2017. Subjective Pt evaluation today including: conversation w/ patient, conversation w/ family (daughter Juan Carlos), physical exam, chart review, conversation w/ staffing consultant, review of inpatient medication list Pain: none PO Intake: tolerating diet Voiding: severino catheter in place Patient is awake, alert and oriented this AM in ICU bed 111. Patient states her goal is to go home with hospice care. She currently has no complaints of pain, SOB or discomfort. I spoke with patient's daughter, Juan Carlos, over phone and confirmed this is the plan. Juan Carlos stated that patient would be going home with her sister, Brook , who provides 15/03 care. We talked about hospice which is what patient and family would like. Review of Systems Constitutional: + weakness (at baseline) ENT: No trouble swallowing Respiratory: No cough, No shortness of breath Cardiac: No chest pain, No edema Abdomen: + problem reported (stool incontinence), No pain, No nausea, No vomiting Female : No problem reported Psychiatric: No depression symptoms, No anxiety Objective Vital Signs Date Time Temp Pulse Resp B/P (MAP) Pulse Ox O2 Delivery O2 Flow Rate FiO2 10/27/17 07:23 83 18 96 Nasal Cannula 2.0 10/27/17 06:00 80 18 166/81 (109) 96 Nasal Cannula 2.0 10/27/17 04:00 36.4 74 14 133/71 (91) 93 Nasal Cannula 2.0 10/27/17 04:00 93 Nasal Cannula 2.0 10/27/17 02:08 75 20 95 Nasal Cannula 2.0 10/27/17 02:00 90 22 131/82 (98) 95 Nasal Cannula 2.0 10/27/17 00:01 36.5 80 24 153/69 (97) 95 Nasal Cannula 2.0 10/26/17 23:59 94 Nasal Cannula 2.0 10/26/17 22:00 87 22 157/78 (104) 92 Room Air 10/26/17 20:00 95 Room Air 10/26/17 20:00 36.5 89 24 158/79 (105) 95 Room Air 10/26/17 19:04 108 18 96 Room Air 10/26/17 18:00 108 20 146/68 (94) 95 10/26/17 17:24 36.4 116 18 121/98 (106) 98 Room Air 10/26/17 17:20 98 Room Air 10/26/17 14:00 95 20 128/83 (98) 100 Room Air 10/26/17 13:59 109 18 96 Room Air 10/26/17 12:00 Room Air 10/26/17 12:00 36.4 100 25 115/73 (87) 96 Room Air 10/26/17 10:00 113 25 99/84 (89) 97 Room Air Physical Exam General Appearance: no apparent distress, + pertinent finding (frail, elderly) ENT: hearing grossly normal Neck: supple, no JVD Respiratory/Chest: no respiratory distress, no accessory muscle use, + crackles (bilateral bases), + rhonchi (coarse throughout), + pertinent finding ( slightly tachypneic) Cardiovascular: regular rate, rhythm, no edema Abdomen: normal bowel sounds, non tender, soft Extremities: + pertinent finding (contracted) Neurologic/Psychiatric: alert, normal mood/affect, oriented x 3 Laboratory Results Last 24 Hours Test 10/26/17 11:40 10/26/17 17:14 10/26/17 21:29 10/27/17 05:38 Bedside Glucose 145 mg/dl 186 mg/dl 115 mg/dl White Blood Count 18.72 K/uL Red Blood Count 2.78 M/uL Hemoglobin 8.8 g/dL Hematocrit 25.4 % Mean Corpuscular Volume 91.4 fL Mean Corpuscular Hemoglobin 31.7 pg Mean Corpuscular Hemoglobin Concent 34.6 g/dl Platelet Count 131 K/uL Mean Platelet Volume 8.7 fL Neutrophils (%) (Auto) 95.3 % Lymphocytes (%) (Auto) 1.5 % Monocytes (%) (Auto) 2.0 % Eosinophils (%) (Auto) 0.0 % Basophils (%) (Auto) 0.1 % Neutrophils # (Auto) 17.85 K/uL Lymphocytes # (Auto) 0.29 K/uL Monocytes # (Auto) 0.37 K/uL Eosinophils # (Auto) 0.00 K/uL Basophils # (Auto) 0.01 K/uL RDW Standard Deviation 53.1 fL RDW Coefficient of Variation 15.9 % Immature Granulocyte % (Auto) 1.1 % Immature Granulocyte # (Auto) 0.20 K/uL Ovalocytes 1+ Echinocytes 1+ Activated Partial Thromboplast Time 51.4 SECONDS Partial Thromboplastin Ratio 2.0 Sodium Level 133 mmol/L Potassium Level 3.8 mmol/L Chloride Level 106 mmol/L Carbon Dioxide Level 14 mmol/L Anion Gap 13.0 mmol/L Blood Urea Nitrogen 31 mg/dl Creatinine 1.60 mg/dl Est Creatinine Clear Calc Drug Dose 19.6 ml/min Estimated GFR () 33.2 Estimated GFR (Non- 28.7 BUN/Creatinine Ratio 19.4 Random Glucose 116 mg/dl Calcium Level 7.5 mg/dl Phosphorus Level 4.0 mg/dl Magnesium Level 2.2 mg/dl Procalcitonin 39.95 ng/ml Random Vancomycin Level 18.0 mcg/ml Test 10/27/17 06:02 10/27/17 08:43 Bedside Glucose 120 mg/dl Assessment and Plan Problem list: Contracted Stool incontinence Hx CVA UTI Pneumonia Goals of care Palliative care recs: discussed with patient, daughter Juan Carlos, rehabilitation case coordinator, and Dr. Jones. -Patient states her goal is to go home with hospice care. She really does not want to come back to hospital for life-sustaining treatment. -Spoke with patient's daughter, Juan Carlos, who confirmed this is the goal. Other daughter, Brook, is who patient lives with and who will be providing 15/03 care. -information services manager spoke with patient's daughter Brook who requested referral to [facility]. Thank you again for this consult. Total time spent 30 minutes. Greater than 50% of time with the patient was spent on counseling and coordinating care. Palliative Performance Scale: 30 %
[2017-10-27] MEDS: ASPIRIN 81 MG ECTAB PO SCH (10:00)
[2017-10-27] MEDS: ALLOPURINOL 100 MG TAB PO SCH (10:00)
[2017-10-27] MEDS: PANTOprazole SOD 40 MG TAB PO SCH (10:00)
--- NOTE | 2017-10-27 11:46 | Progress Note ---
Internal Med Progress Note Date of Service: Oct 27, 2017. Provider Documentation: SUBJECTIVE: The patient was seen and examined Feels better -asking about the heart rate Remains stable Complains of some diarrhea OBJECTIVE: Vital Signs-as noted below Exam: General-No distress at rest Eyes-Normal ENT-normal Neck-supple Lungs-decreased breath sound bilaterally Occasional wheezing bilaterally Heart-Irregular,no murmur appreciated Abdomen-Benign,no masses Extremities-Trace edema bilaterally Has chronic deformities in legs Neuro-AAOX3 Has been mobile with wheelchair Lab data as noted below. ASSESSMENT & PLAN: SEPSIS Has been in ICU for hypotension Possible related to aspiration pneumonia CXR showed showed new focal nodular opacity at the right lung base Elevated procalcitonin,Elevated WBC Started on Zosyn and vanco Blood cx and urine cx -Negative .D/C Vanco and will transition to oral Augmentin on discharge BP seems to be stable >100 systolic Feels a lot better will transfer to Tele AFIB WITH RVR Hx of paroxysmal AF Started on Amiodarone drip/bolus Now on oral Amiodarone [id number] - score about 5 (Age,sex,CVA, HTN) Cardiology consult-appreciate input Check Echo::: * The left ventricle is normal in size. * There is moderate concentric left ventricular hypertrophy. * Ejection Fraction = 60-65%. * The right ventricular systolic function is normal. * The left atrium is mildly dilated. * Right atrial size is normal. * Aortic valve sclerosis moderate, without significant aortic valvular stenosis. * There is mild to moderate mitral regurgitation. Remains stable PNEUMONIA CXR on admission showed left lower lobe infiltrate. Repeat cxr showed Focal nodular opacity at the right lung base Increased WCC and elevated procalcitonin Continue intravenous piperacillin/tazobactam and Vanco:: UTI Urine cx growth gram negative bacilli Growth E-coli and Klebsiella-sensitive to Augmentin On IV Zosyn and on Vanco D/C Vanco ,will transition to oral Augmentin on discharge Repeat urine cx -negative . DIARRHEA No more episode of diarrhea Stool for C-diff negative Daughter said pt has diarrhea twice a week and constipated for the other days HYPOTENSION Secondary to sepsis Received 3L IVF last night BP improved ABNORMAL EKG / ELEVATED TROPONIN Troponin was 0.051 on admission Possible related to infection vs dehydration EKG shows inferolateral T-wave changes. Repeat trop trending down to normal denies any chest pain Continue metoprolol, aspirin and statin. HYPERTENSION BP elevated on admission Metoprolol increased back to 50mg BID hydrochlorothiazide on hold Resume lisinopril Starting on IV hydralazine prn Continue monitor BP Hold BP med due to hypotension for now CKD III Serum creatinine 1.59 on admission Worsening renal function CXR showed pulmonary edema Has been diuresis on her own No additional IVF fluid Monitor BMP GOUT Continue allopurinol and prednisone. Stable RESUSCITATION STATUS FULL CODE VTE PROPHYLAXIS Nonambulatory. heparin drip No plan for medical terminologist anticoagulation D/C Heparin drip-Hb dropping DISPOSITION Monitor in the ICU Transfer to [facility] tomorrow with Hospice Vital Signs: Date Time Temp Pulse Resp B/P (MAP) Pulse Ox O2 Delivery O2 Flow Rate FiO2 10/27/17 11:22 36.9 83 23 94 2.0 10/27/17 10:00 36.9 83 23 147/82 (103) 94 Nasal Cannula 2.0 10/27/17 08:00 36.9 73 17 167/77 (107) 91 Nasal Cannula 2.0 10/27/17 08:00 Nasal Cannula 10/27/17 08:00 Nasal Cannula 2.0 10/27/17 07:23 83 18 96 Nasal Cannula 2.0 10/27/17 06:00 80 18 166/81 (109) 96 Nasal Cannula 2.0 10/27/17 04:00 36.4 74 14 133/71 (91) 93 Nasal Cannula 2.0 10/27/17 04:00 93 Nasal Cannula 2.0 10/27/17 02:08 75 20 95 Nasal Cannula 2.0 10/27/17 02:00 90 22 131/82 (98) 95 Nasal Cannula 2.0 10/27/17 00:01 36.5 80 24 153/69 (97) 95 Nasal Cannula 2.0 10/26/17 23:59 94 Nasal Cannula 2.0 10/26/17 22:00 87 22 157/78 (104) 92 Room Air 10/26/17 20:00 95 Room Air 10/26/17 20:00 36.5 89 24 158/79 (105) 95 Room Air 10/26/17 19:04 108 18 96 Room Air 10/26/17 18:00 108 20 146/68 (94) 95 10/26/17 17:24 36.4 116 18 121/98 (106) 98 Room Air 10/26/17 17:20 98 Room Air 10/26/17 14:00 95 20 128/83 (98) 100 Room Air 10/26/17 13:59 109 18 96 Room Air 10/26/17 12:00 Room Air 10/26/17 12:00 36.4 100 25 115/73 (87) 96 Room Air Lab Results: Results Past 24 Hours Test 10/26/17 11:40 10/26/17 17:14 10/26/17 21:29 10/27/17 05:38 Range/Units Bedside Glucose 145 186 115 70-90 mg/dl White Blood Count 18.72 4.8-10.8 K/uL Red Blood Count 2.78 4.2-5.4 M/uL Hemoglobin 8.8 12.0-16.0 g/dL Hematocrit 25.4 37-47 % Mean Corpuscular Volume 91.4 80-100 fL Mean Corpuscular Hemoglobin 31.7 25-34 pg Mean Corpuscular Hemoglobin Concent 34.6 32-36 g/dl Platelet Count 131 130-400 K/uL Mean Platelet Volume 8.7 7.4-10.4 fL Neutrophils (%) (Auto) 95.3 % Lymphocytes (%) (Auto) 1.5 % Monocytes (%) (Auto) 2.0 % Eosinophils (%) (Auto) 0.0 % Basophils (%) (Auto) 0.1 % Neutrophils # (Auto) 17.85 1.4-6.5 K/uL Lymphocytes # (Auto) 0.29 1.2-3.4 K/uL Monocytes # (Auto) 0.37 0.11-0.59 K/uL Eosinophils # (Auto) 0.00 0-0.5 K/uL Basophils # (Auto) 0.01 0-0.2 K/uL RDW Standard Deviation 53.1 36.4-46.3 fL RDW Coefficient of Variation 15.9 11.5-14.5 % Immature Granulocyte % (Auto) 1.1 % Immature Granulocyte # (Auto) 0.20 0.00-0.02 K/uL Ovalocytes 1+ Echinocytes 1+ Activated Partial Thromboplast Time 51.4 21.0-31.0 SECONDS Partial Thromboplastin Ratio 2.0 Sodium Level 133 136-145 mmol/L Potassium Level 3.8 3.5-5.1 mmol/L Chloride Level 106 98-107 mmol/L Carbon Dioxide Level 14 21-32 mmol/L Anion Gap 13.0 3-11 mmol/L Blood Urea Nitrogen 31 7-18 mg/dl Creatinine 1.60 0.60-1.20 mg/dl Est Creatinine Clear Calc Drug Dose 19.6 ml/min Estimated GFR () 33.2 Estimated GFR (Non- 28.7 BUN/Creatinine Ratio 19.4 10-20 Random Glucose 116 70-99 mg/dl Calcium Level 7.5 8.5-10.1 mg/dl Phosphorus Level 4.0 2.5-4.9 mg/dl Magnesium Level 2.2 1.8-2.4 mg/dl Procalcitonin 39.95 0-0.5 ng/ml Random Vancomycin Level 18.0 mcg/ml Test 10/27/17 06:02 10/27/17 10:00 Range/Units Bedside Glucose 120 70-90 mg/dl Stool Occult Blood POSITIVE NEGATIVE
[2017-10-27] MEDS ORDERED: FUROSEMIDE INJ 20 MG in SYRINGE 0 ML IV ONE (14:15)
--- NOTE | 2017-10-27 15:13 | DIAGNOSTIC IMAGING REPORT ---
CHEST ONE VIEW PORTABLE CLINICAL HISTORY: 87 years-old Female presenting with chf. TECHNIQUE: Portable upright AP view of the chest was obtained. COMPARISON: 10/25/2017. FINDINGS: Atherosclerosis of aortic arch. Cardiac silhouette enlarged. Pulmonary vascular prominence. Interval increase in patchy right mid to upper lung opacities. Persistent vague perihilar hazy opacities. No large pleural effusion or pneumothorax. Degenerative changes of the thoracic spine. Prominent splenic arterial calcifications. IMPRESSION: 1. Cardiomegaly with volume overload and possible mild pulmonary edema area 2. Patchy right mid to upper lung opacities raises concern for superimposed infection/pneumonia. Electronically signed by: Vel aGllardo M.D. 10/27/2017 3:12 PM Dictated Date/Time: 10/27/2017 3:10 PM
[2017-10-27] MEDS ORDERED: FUROSEMIDE INJ 40 MG in SYRINGE 0 ML IV ONE (18:00)
[2017-10-27] MEDS: PRAVASTATIN SOD 40 MG TAB PO SCH (19:49)
[2017-10-28] VITALS (12 sets, daily range): BP systolic 135–192; BP diastolic 77–110; PULSE 89–131; TEMP 36.5–37.4; O2SAT 90–97
[2017-10-28] MEDS: PIPERACILL/TAZOBAC IV 3.375 GM in DEXTROSE 5% 100ML IV SCH ×3 (00:19→19:44)
[2017-10-28] MEDS: TRAMADOL HCL 50 MG TAB PO PRN ×2 (00:20→07:39)
[2017-10-28] MEDS: IPRATROPIUM BROMIDE NEB SOLN 0.02% 2.5 ML VIAL INH SCH ×4 (01:39→19:03)
[2017-10-28] MEDS: LEVALBUTEROL 1.25MG/0.5ML NEB INH SCH ×4 (01:39→19:03)
[2017-10-28] MEDS: HYDROCORTISONE IV 50 MG in SYRINGE 0 ML IV SCH ×2 (01:42→06:05)
[2017-10-28 06:53] LABS: HEMATOCRIT 30.3 % (37-47); HEMOGLOBIN 10.6 g/dL (12.0-16.0); MEAN CELL VOLUME 90.2 fL (80-100); MEAN CORPUSCULAR HEMOGLOBIN 31.5 pg (25-34); MEAN PLATELET VOLUME 9.2 fL (7.4-10.4); PLATELET COUNT 189 K/uL (130-400); RED CELL DISTRIBUTION WIDTH CV 15.9 % (11.5-14.5); RED CELL DISTRIBUTION WIDTH SD 52.3 fL (36.4-46.3)
[2017-10-28 07:03] LABS: PTT PATIENT 27.3 SECONDS (21.0-31.0)
[2017-10-28 07:32] LABS: BASO % 0.1 %; BASO ABS # 0.02 K/uL (0-0.2); IG# 0.21 K/uL (0.00-0.02); LYMPH % 0.9 %; MONO % 1.4 %; MONO ABS # 0.31 K/uL (0.11-0.59); NEUT % 96.6 %; NEUT ABS # 20.86 K/uL (1.4-6.5)
[2017-10-28 07:35] LABS: CALCIUM 8.3 mg/dl (8.5-10.1); CREATININE 1.68 mg/dl (0.60-1.20); POTASSIUM 3.4 mmol/L (3.5-5.1)
[2017-10-28] MEDS: ALLOPURINOL 100 MG TAB PO SCH (07:36)
[2017-10-28] MEDS: PANTOprazole SOD 40 MG TAB PO SCH (07:36)
[2017-10-28] MEDS: AMIODARONE 200 MG TAB PO SCH ×2 (07:36→16:44)
[2017-10-28] MEDS: ASPIRIN 81 MG ECTAB PO SCH (07:36)
[2017-10-28] MEDS ORDERED: POTASSIUM CHLORIDE 10 MEQ TABCR PO STA (08:39)
[2017-10-28] MEDS ORDERED: HYDROmorphone INJ 0.5 MG/0.5 ML SYR IV STA (08:59)
[2017-10-28] MEDS ORDERED: HYDROmorphone INJ 0.5 MG/0.5 ML SYR ONE (09:04)
[2017-10-28] MEDS: FENTANYL 12 MCG/HR TDSY TD SCH (09:26)
--- NOTE | 2017-10-28 13:03 | Progress Note ---
Internal Med Progress Note Date of Service: Oct 28, 2017. Provider Documentation: SUBJECTIVE: The patient was seen and examined Feels better -asking about the heart rate Has had SOB with Wheezing yesterday CXR showed Pul Edema Lasix given Better this AM but has increased heart rate Complains of severe pain in Legs OBJECTIVE: Vital Signs-as noted below Exam: General-Minimal distress at rest Eyes-Normal ENT-normal Neck-supple Lungs-decreased breath sound bilaterally Occasional wheezing bilaterally Heart-Irregular,no murmur appreciated Abdomen-Benign,no masses Extremities-Trace edema bilaterally Has chronic deformities in legs Neuro-AAOX3 Has been mobile with wheelchair Lab data as noted below. ASSESSMENT & PLAN: SEPSIS Has been in ICU for hypotension Possible related to aspiration pneumonia CXR showed showed new focal nodular opacity at the right lung base Elevated procalcitonin,Elevated WBC Started on Zosyn and vanco Blood cx and urine cx -Negative .D/C Vanco and will transition to oral Augmentin on discharge BP seems to be stable >100 systolic Feels a lot better will transfer to Tele Clinically better this AM -Reverted to SR AFIB WITH RVR Hx of paroxysmal AF Started on Amiodarone drip/bolus Now on oral Amiodarone [id number] - score about 5 (Age,sex,CVA, HTN) Cardiology consult-appreciate input Check Echo::: * The left ventricle is normal in size. * There is moderate concentric left ventricular hypertrophy. * Ejection Fraction = 60-65%. * The right ventricular systolic function is normal. * The left atrium is mildly dilated. * Right atrial size is normal. * Aortic valve sclerosis moderate, without significant aortic valvular stenosis. * There is mild to moderate mitral regurgitation. Went into RVR Received pain medications and reverted to SR Resting reasonably PNEUMONIA CXR on admission showed left lower lobe infiltrate. Repeat cxr showed Focal nodular opacity at the right lung base Increased WCC and elevated procalcitonin Continue intravenous piperacillin/tazobactam Will change to Augmentin UTI Urine cx growth gram negative bacilli Growth E-coli and Klebsiella-sensitive to Augmentin On IV Zosyn and on Vanco D/C Vanco ,will transition to oral Augmentin on discharge Repeat urine cx -negative . DIARRHEA No more episode of diarrhea Stool for C-diff negative Daughter said pt has diarrhea twice a week and constipated for the other days HYPOTENSION Secondary to sepsis Received 3L IVF last night BP improved ABNORMAL EKG / ELEVATED TROPONIN Troponin was 0.051 on admission Possible related to infection vs dehydration EKG shows inferolateral T-wave changes. Repeat trop trending down to normal denies any chest pain Continue metoprolol, aspirin and statin. HYPERTENSION BP elevated on admission Metoprolol increased back to 50mg BID hydrochlorothiazide on hold Resume lisinopril Starting on IV hydralazine prn Continue monitor BP Hold BP med due to hypotension for now CKD III Serum creatinine 1.59 on admission Worsening renal function CXR showed pulmonary edema Has been diuresis on her own No additional IVF fluid Monitor BMP GOUT Continue allopurinol and prednisone. Stable RESUSCITATION STATUS FULL CODE VTE PROPHYLAXIS Nonambulatory. heparin drip No plan for intermediate anticoagulation D/C Heparin drip-Hb dropping DISPOSITION Monitor in the ICU Transfer to [facility] home today with Hospice Vital Signs: Date Time Temp Pulse Resp B/P (MAP) Pulse Ox O2 Delivery O2 Flow Rate FiO2 10/28/17 12:00 92 Nasal Cannula 5.0 10/28/17 11:51 36.5 100 32 181/100 (127) 90 Diffusion Mask 10.0 10/28/17 08:00 92 Nasal Cannula 5.0 10/28/17 07:53 36.5 131 32 172/103 (126) 93 Diffusion Mask 8.0 10/28/17 04:00 Oxymask 8.0 10/28/17 03:43 36.5 125 26 135/110 (118) 94 152/104 (120) 10/28/17 00:01 36.5 89 20 172/88 (116) 97 6.0 10/27/17 23:59 Oxymask 8.0 10/27/17 20:36 36.8 94 22 178/97 (124) 94 Oxymask 10.0 10/27/17 20:06 93 18 94 Mask 10.0 10/27/17 20:00 Oxymask 10.0 10/27/17 16:07 36.8 96 24 171/106 (127) 98 Oxymask 8.0 10/27/17 16:00 92 Oxymask 8.0 10/27/17 14:10 95 95 50 10/27/17 14:02 92 18 90 Mask 11.0 10/27/17 14:00 94 25 198/98 (131) 82 Nasal Cannula 4.0 Lab Results: Results Past 24 Hours Test 10/27/17 15:50 10/28/17 06:37 Range/Units Bedside Glucose 123 70-90 mg/dl White Blood Count 21.60 4.8-10.8 K/uL Red Blood Count 3.36 4.2-5.4 M/uL Hemoglobin 10.6 12.0-16.0 g/dL Hematocrit 30.3 37-47 % Mean Corpuscular Volume 90.2 80-100 fL Mean Corpuscular Hemoglobin 31.5 25-34 pg Mean Corpuscular Hemoglobin Concent 35.0 32-36 g/dl Platelet Count 189 130-400 K/uL Mean Platelet Volume 9.2 7.4-10.4 fL Neutrophils (%) (Auto) 96.6 % Lymphocytes (%) (Auto) 0.9 % Monocytes (%) (Auto) 1.4 % Eosinophils (%) (Auto) 0.0 % Basophils (%) (Auto) 0.1 % Neutrophils # (Auto) 20.86 1.4-6.5 K/uL Lymphocytes # (Auto) 0.20 1.2-3.4 K/uL Monocytes # (Auto) 0.31 0.11-0.59 K/uL Eosinophils # (Auto) 0.00 0-0.5 K/uL Basophils # (Auto) 0.02 0-0.2 K/uL RDW Standard Deviation 52.3 36.4-46.3 fL RDW Coefficient of Variation 15.9 11.5-14.5 % Immature Granulocyte % (Auto) 1.0 % Immature Granulocyte # (Auto) 0.21 0.00-0.02 K/uL Ovalocytes 1+ Echinocytes 1+ Activated Partial Thromboplast Time 27.3 21.0-31.0 SECONDS Partial Thromboplastin Ratio 1.1 Sodium Level 135 136-145 mmol/L Potassium Level 3.4 3.5-5.1 mmol/L Chloride Level 105 98-107 mmol/L Carbon Dioxide Level 16 21-32 mmol/L Anion Gap 14.0 3-11 mmol/L Blood Urea Nitrogen 34 7-18 mg/dl Creatinine 1.68 0.60-1.20 mg/dl Est Creatinine Clear Calc Drug Dose 20.2 ml/min Estimated GFR () 31.3 Estimated GFR (Non- 27.0 BUN/Creatinine Ratio 20.4 10-20 Random Glucose 77 70-99 mg/dl Calcium Level 8.3 8.5-10.1 mg/dl
[2017-10-28] MEDS ORDERED: LORAZEPAM 2 MG/ML 1 ML VIAL ONE (14:31)
[2017-10-28] MEDS ORDERED: LORAZEPAM 2 MG/ML 1 ML VIAL IV STA (14:32)
[2017-10-28] MEDS ORDERED: HYDROmorphone INJ 0.5 MG/0.5 ML SYR IV PRN (14:45)
[2017-10-28] MEDS: CHECK FENTANYL PATCH PLACEMENT SCH (16:24)
[2017-10-28] MEDS: LORAZEPAM 0.5 MG TAB PO PRN (19:44)
[2017-10-28] MEDS: PRAVASTATIN SOD 40 MG TAB PO SCH (20:55)
[2017-10-29] VITALS (13 sets, daily range): BP systolic 94–206; BP diastolic 55–109; PULSE 94–154; TEMP 36.9–38.8; O2SAT 92–98
[2017-10-29] MEDS: LEVALBUTEROL 1.25MG/0.5ML NEB INH SCH ×4 (01:39→21:00)
[2017-10-29] MEDS: IPRATROPIUM BROMIDE NEB SOLN 0.02% 2.5 ML VIAL INH SCH ×4 (01:39→21:00)
[2017-10-29] MEDS: LORAZEPAM 0.5 MG TAB PO PRN ×2 (03:58→22:40)
[2017-10-29] MEDS: PIPERACILL/TAZOBAC IV 3.375 GM in DEXTROSE 5% 100ML IV SCH ×3 (03:59→20:35)
[2017-10-29 06:07] LABS: BASO % 0.1 %; BASO ABS # 0.01 K/uL (0-0.2); HEMATOCRIT 29.8 % (37-47); HEMOGLOBIN 10.5 g/dL (12.0-16.0); LYMPH % 1.6 %; LYMPH ABS # 0.29 K/uL (1.2-3.4); MEAN CELL VOLUME 90.6 fL (80-100); MEAN CORPUSCULAR HEMOGLOBIN 31.9 pg (25-34); MEAN CORPUSCULAR HGB CONC 35.2 g/dl (32-36); MEAN PLATELET VOLUME 9.5 fL (7.4-10.4); MONO % 1.9 %; MONO ABS # 0.33 K/uL (0.11-0.59); NEUT % 95.3 %; NEUT ABS # 16.85 K/uL (1.4-6.5); PLATELET COUNT 192 K/uL (130-400); RED CELL DISTRIBUTION WIDTH CV 15.9 % (11.5-14.5); RED CELL DISTRIBUTION WIDTH SD 52.7 fL (36.4-46.3); WHITE BLOOD COUNT 17.68 K/uL (4.8-10.8)
[2017-10-29] MEDS: MoRPHine SULFATE 5 MG/0.25 ML UDP PO PRN ×3 (06:36→11:48)
[2017-10-29 06:38] LABS: CALCIUM 8.9 mg/dl (8.5-10.1); CREATININE 1.73 mg/dl (0.60-1.20); POTASSIUM 3.4 mmol/L (3.5-5.1)
[2017-10-29] MEDS ORDERED: HydrALAZINE HCL 20 MG/ML VIAL IV. STA (06:57)
[2017-10-29] MEDS ORDERED: FUROSEMIDE 40 MG/4 ML VIAL IV STA (07:00)
[2017-10-29] MEDS ORDERED: FUROSEMIDE 40 MG/4 ML VIAL ONE (07:03)
--- NOTE | 2017-10-29 07:05 | DIAGNOSTIC IMAGING REPORT ---
CHEST ONE VIEW PORTABLE CLINICAL HISTORY: worsening tachypnea and hypoxia, now on bipap, crackles on lung dyspnea COMPARISON STUDY: 10/27/2017 FINDINGS: Findings of somewhat progressive pulmonary edematous change. Peripheral infiltrative changes throughout both hemithoraces are slightly progressive. No evidence for pneumothorax. Mild stable cardia megaly. IMPRESSION: Mildly progressive findings of pulmonary edema. The above report was generated using voice recognition software. It may contain grammatical, syntax or spelling errors. Electronically signed by: Sanjay Pugh M.D. 10/29/2017 7:03 AM Dictated Date/Time: 10/29/2017 7:03 AM
[2017-10-29] MEDS: AMIODARONE 200 MG TAB PO SCH ×3 (07:30→19:53)
[2017-10-29] MEDS ORDERED: LORAZEPAM 2 MG/ML 1 ML VIAL ONE (07:34)
[2017-10-29] MEDS ORDERED: NURSING VERBAL MED ORDER ONE (07:45)
[2017-10-29] MEDS ORDERED: DIGOXIN IV 125 MCG in SYRINGE 9.5 ML IV ONE (08:00)
[2017-10-29] MEDS ORDERED: LORAZEPAM INJ 1 MG in SYRINGE 0.5 ML IV ONE (08:00)
[2017-10-29] MEDS: CHECK FENTANYL PATCH PLACEMENT SCH ×4 (08:01→23:30)
[2017-10-29] MEDS: ALLOPURINOL 100 MG TAB PO SCH (08:37)
[2017-10-29] MEDS: ASPIRIN 81 MG ECTAB PO SCH (08:37)
[2017-10-29] MEDS: PANTOprazole SOD 40 MG TAB PO SCH (08:37)
[2017-10-29] MEDS ORDERED: MoRPHine SULFATE 2 MG/ML CARP IV STA (08:48)
[2017-10-29] MEDS ORDERED: MoRPHine SULFATE 2 MG/ML CARP ONE (08:51)
--- NOTE | 2017-10-29 09:03 | Palliative Care Progress Note ---
Palliative Care Progress Note Date of Service Oct 29, 2017. Subjective Pt evaluation today including: conversation w/ family (Queta kc), physical exam, chart review, conversation w/ senior science consultant (Dr. Jones) Voiding: severino catheter in place Patient went into flash pulmonary edema overnight/this morning. Heart rate in 140-160s. Dr. Jones was at bedside this morning and ordered IV digoxin and Lasix. Patient now on Bipap, is lethargic. Patient unable to answer questions or communicate at this time. Still receiving Ativan and Roxanol for comfort. I called patient's daughter, Queta, this morning to give her an update on patient's condition. She verbalized understanding and said she will be in to the hospital to see patient as soon as she can and make decision on whether or not to transition to comfort measures only. For now, she'd like us to continue current medical management with no escalation in care. Patient remains on bipap and on telemetry. Daughter is okay with us continuing to treat for pain and anxiety with lorazepam and morphine. Review of Systems unable to obtain due to lethargy Objective Vital Signs Date Time Temp Pulse Resp B/P (MAP) Pulse Ox O2 Delivery O2 Flow Rate FiO2 10/29/17 08:00 180 10/29/17 07:48 38.8 154 38 206/108 (140) 95 BiPAP 11.0 10/29/17 04:00 96 Oxymask 10.0 10/29/17 03:46 36.9 103 26 206/104 (138) 96 10/29/17 01:41 94 22 97 Mask 10.0 10/29/17 00:05 98 Oxymask 10.0 10/29/17 00:03 36.9 101 26 168/92 (117) 98 11.0 10/28/17 20:00 93 Oxymask 10.0 10/28/17 19:06 94 20 93 Mask 10.0 10/28/17 19:01 37.4 92 26 192/102 (132) 96 Oxymask 11.0 10/28/17 16:00 96 Oxymask 10.0 10/28/17 15:14 37.4 97 24 171/77 (108) 91 Oxymask 11.0 10/28/17 14:44 99 16 90 Mask 10.0 10/28/17 12:00 92 Nasal Cannula 5.0 10/28/17 11:51 36.5 100 32 181/100 (127) 90 Diffusion Mask 10.0 Physical Exam General Appearance: no apparent distress, + pertinent finding (frail, elderly, contracted) ENT: hearing grossly normal Neck: supple, no JVD Respiratory/Chest: + accessory muscle use (tachypneic), + crackles, + rhonchi Cardiovascular: + tachycardia, + normal peripheral pulses Abdomen: normal bowel sounds, non tender, soft Neurologic/Psychiatric: + pertinent finding (lethargic) Laboratory Results Last 24 Hours Test 10/29/17 05:46 White Blood Count 17.68 K/uL Red Blood Count 3.29 M/uL Hemoglobin 10.5 g/dL Hematocrit 29.8 % Mean Corpuscular Volume 90.6 fL Mean Corpuscular Hemoglobin 31.9 pg Mean Corpuscular Hemoglobin Concent 35.2 g/dl Platelet Count 192 K/uL Mean Platelet Volume 9.5 fL Neutrophils (%) (Auto) 95.3 % Lymphocytes (%) (Auto) 1.6 % Monocytes (%) (Auto) 1.9 % Eosinophils (%) (Auto) 0.0 % Basophils (%) (Auto) 0.1 % Neutrophils # (Auto) 16.85 K/uL Lymphocytes # (Auto) 0.29 K/uL Monocytes # (Auto) 0.33 K/uL Eosinophils # (Auto) 0.00 K/uL Basophils # (Auto) 0.01 K/uL RDW Standard Deviation 52.7 fL RDW Coefficient of Variation 15.9 % Immature Granulocyte % (Auto) 1.1 % Immature Granulocyte # (Auto) 0.20 K/uL Sodium Level 136 mmol/L Potassium Level 3.4 mmol/L Chloride Level 107 mmol/L Carbon Dioxide Level 16 mmol/L Anion Gap 13.0 mmol/L Blood Urea Nitrogen 34 mg/dl Creatinine 1.73 mg/dl Est Creatinine Clear Calc Drug Dose 18.1 ml/min Estimated GFR () 30.2 Estimated GFR (Non- 26.1 BUN/Creatinine Ratio 19.7 Random Glucose 83 mg/dl Calcium Level 8.9 mg/dl Assessment and Plan Problem list: Contracted Dyspnea Pulmonary edema Tachycardia Goals of care Palliative care recs: discussed with patient, daughter Queta, and Dr. Jones. -Patient was to go home with hospice but seems to have taken a turn for the worst. Uncertain if she will make it out of hospital at this point. -She now has pulmonary edema and tachycardia. Dr. Jones at bedside this AM and ordered IV Digoxin and Lasix. -Patient remains lethargic on bipap. Dyspneic and tachypneic. -I called patient's daughter to update her on patient condition. She verbalized understanding and is okay with us continuing to treat patient's symptoms with lorazepam and morphine. She does not want any change in patient's care until she is able to come to the hospital. She will make decision on whether or not to transition to comfort measures only once at the hospital. She is going to call other family members. Dr. Jones updated after I spoke with daughter. Total time spent 35 minutes with >50% of time spent with patient and family counseling discussing plan of care. Palliative Performance Scale: 10 %
--- NOTE | 2017-10-29 15:25 | Progress Note ---
Internal Med Progress Note Date of Service: Oct 29, 2017. Provider Documentation: SUBJECTIVE: The patient was seen and examined Feels better -asking about the heart rate Has had SOB with Wheezing yesterday CXR showed Pul Edema Condition deteriorated with very high BP,confusion and SOB Treated with IV Lasix,BIPAP,Ativan and Morphine OBJECTIVE: Vital Signs-as noted below Exam: General-severe distress at rest Eyes-Normal ENT-normal Neck-supple Lungs-decreased breath sound bilaterally Coarse crackles bilaterally Heart-Irregular,no murmur appreciated Abdomen-Benign,no masses Extremities-Trace edema bilaterally Has chronic deformities in legs Neuro-AAOX3 Has been mobile with wheelchair Lab data as noted below. ASSESSMENT & PLAN: SOB with Hypertensive urgency Multifactorial Contributed by AF with RVR Received Digoxin,Hydralazine,Lasix ,Ativan and Morphine Discussed with the family members Likely to go for Comfort care from this Evening SEPSIS Has been in ICU for hypotension Possible related to aspiration pneumonia CXR showed showed new focal nodular opacity at the right lung base Elevated procalcitonin,Elevated WBC Started on Zosyn and vanco Blood cx and urine cx -Negative .D/C Vanco and will transition to oral Augmentin on discharge BP seems to be stable >100 systolic Feels a lot better will transfer to Tele Clinically better this AM -Reverted to SR AFIB WITH RVR Hx of paroxysmal AF Started on Amiodarone drip/bolus Now on oral Amiodarone [id number] - score about 5 (Age,sex,CVA, HTN) Cardiology consult-appreciate input Check Echo::: * The left ventricle is normal in size. * There is moderate concentric left ventricular hypertrophy. * Ejection Fraction = 60-65%. * The right ventricular systolic function is normal. * The left atrium is mildly dilated. * Right atrial size is normal. * Aortic valve sclerosis moderate, without significant aortic valvular stenosis. * There is mild to moderate mitral regurgitation. Went into RVR Received pain medications and reverted to SR Resting reasonably PNEUMONIA CXR on admission showed left lower lobe infiltrate. Repeat cxr showed Focal nodular opacity at the right lung base Increased WCC and elevated procalcitonin Continue intravenous piperacillin/tazobactam Will change to Augmentin UTI Urine cx growth gram negative bacilli Growth E-coli and Klebsiella-sensitive to Augmentin On IV Zosyn and on Vanco D/C Vanco ,will transition to oral Augmentin on discharge Repeat urine cx -negative . DIARRHEA No more episode of diarrhea Stool for C-diff negative Daughter said pt has diarrhea twice a week and constipated for the other days HYPOTENSION Secondary to sepsis Received 3L IVF last night BP improved ABNORMAL EKG / ELEVATED TROPONIN Troponin was 0.051 on admission Possible related to infection vs dehydration EKG shows inferolateral T-wave changes. Repeat trop trending down to normal denies any chest pain Continue metoprolol, aspirin and statin. HYPERTENSION BP elevated on admission Metoprolol increased back to 50mg BID hydrochlorothiazide on hold Resume lisinopril Starting on IV hydralazine prn Continue monitor BP Hold BP med due to hypotension for now CKD III Serum creatinine 1.59 on admission Worsening renal function CXR showed pulmonary edema Has been diuresis on her own No additional IVF fluid Monitor BMP GOUT Continue allopurinol and prednisone. Stable RESUSCITATION STATUS FULL CODE VTE PROPHYLAXIS Nonambulatory. heparin drip No plan for shelter anticoagulation D/C Heparin drip-Hb dropping DISPOSITION Monitor in the ICU Transfer to [facility] home today with Hospice Vital Signs: Date Time Temp Pulse Resp B/P (MAP) Pulse Ox O2 Delivery O2 Flow Rate FiO2 10/29/17 12:27 37.2 105 28 94/55 (68) 97 BiPAP 11.0 10/29/17 12:00 95 BiPAP 70 10/29/17 09:00 156/109 (125) 10/29/17 08:00 95 BiPAP 70 10/29/17 08:00 180 10/29/17 07:48 38.8 154 38 206/108 (140) 95 BiPAP 11.0 10/29/17 04:00 96 Oxymask 10.0 10/29/17 03:46 36.9 103 26 206/104 (138) 96 10/29/17 01:41 94 22 97 Mask 10.0 10/29/17 00:05 98 Oxymask 10.0 10/29/17 00:03 36.9 101 26 168/92 (117) 98 11.0 10/28/17 20:00 93 Oxymask 10.0 10/28/17 19:06 94 20 93 Mask 10.0 10/28/17 19:01 37.4 92 26 192/102 (132) 96 Oxymask 11.0 10/28/17 16:00 96 Oxymask 10.0 Lab Results: Results Past 24 Hours Test 10/29/17 05:46 Range/Units White Blood Count 17.68 4.8-10.8 K/uL Red Blood Count 3.29 4.2-5.4 M/uL Hemoglobin 10.5 12.0-16.0 g/dL Hematocrit 29.8 37-47 % Mean Corpuscular Volume 90.6 80-100 fL Mean Corpuscular Hemoglobin 31.9 25-34 pg Mean Corpuscular Hemoglobin Concent 35.2 32-36 g/dl Platelet Count 192 130-400 K/uL Mean Platelet Volume 9.5 7.4-10.4 fL Neutrophils (%) (Auto) 95.3 % Lymphocytes (%) (Auto) 1.6 % Monocytes (%) (Auto) 1.9 % Eosinophils (%) (Auto) 0.0 % Basophils (%) (Auto) 0.1 % Neutrophils # (Auto) 16.85 1.4-6.5 K/uL Lymphocytes # (Auto) 0.29 1.2-3.4 K/uL Monocytes # (Auto) 0.33 0.11-0.59 K/uL Eosinophils # (Auto) 0.00 0-0.5 K/uL Basophils # (Auto) 0.01 0-0.2 K/uL RDW Standard Deviation 52.7 36.4-46.3 fL RDW Coefficient of Variation 15.9 11.5-14.5 % Immature Granulocyte % (Auto) 1.1 % Immature Granulocyte # (Auto) 0.20 0.00-0.02 K/uL Sodium Level 136 136-145 mmol/L Potassium Level 3.4 3.5-5.1 mmol/L Chloride Level 107 98-107 mmol/L Carbon Dioxide Level 16 21-32 mmol/L Anion Gap 13.0 3-11 mmol/L Blood Urea Nitrogen 34 7-18 mg/dl Creatinine 1.73 0.60-1.20 mg/dl Est Creatinine Clear Calc Drug Dose 18.1 ml/min Estimated GFR () 30.2 Estimated GFR (Non- 26.1 BUN/Creatinine Ratio 19.7 10-20 Random Glucose 83 70-99 mg/dl Calcium Level 8.9 8.5-10.1 mg/dl
[2017-10-29] MEDS: MoRPHine SULFATE 2 MG/ML CARP IV PRN ×2 (18:12→22:04)
[2017-10-29] MEDS: PRAVASTATIN SOD 40 MG TAB PO SCH (21:00)
[2017-10-29] MEDS ORDERED: SODIUM CHLORIDE 0.65% NA SOLN 45 ML (OCEAN) ONE (22:22)
[2017-10-30] VITALS (8 sets, daily range): BP systolic 122–162; BP diastolic 61–84; PULSE 73–115; TEMP 36.5–37.5; O2SAT 88–100
[2017-10-30] MEDS: MoRPHine SULFATE 5 MG/0.25 ML UDP PO PRN ×3 (00:40→18:13)
[2017-10-30] MEDS: IPRATROPIUM BROMIDE NEB SOLN 0.02% 2.5 ML VIAL INH SCH ×4 (01:51→19:37)
[2017-10-30] MEDS: LEVALBUTEROL 1.25MG/0.5ML NEB INH SCH ×4 (01:52→19:37)
[2017-10-30] MEDS ORDERED: FUROSEMIDE INJ 40 MG in SYRINGE 0 ML IV SCH (02:00)
[2017-10-30] MEDS ORDERED: DILTIAZEM HCL 5 MG/ML 5 ML VIAL IV SCH (02:00)
[2017-10-30] MEDS: PIPERACILL/TAZOBAC IV 3.375 GM in DEXTROSE 5% 100ML IV SCH ×2 (04:31→11:32)
[2017-10-30 05:56] LABS: HEMOGLOBIN 9.7 g/dL (12.0-16.0); MEAN CORPUSCULAR HEMOGLOBIN 31.2 pg (25-34); MEAN CORPUSCULAR HGB CONC 34.6 g/dl (32-36); MEAN PLATELET VOLUME 9.2 fL (7.4-10.4); PLATELET COUNT 173 K/uL (130-400); RED CELL DISTRIBUTION WIDTH CV 16.1 % (11.5-14.5); RED CELL DISTRIBUTION WIDTH SD 52.1 fL (36.4-46.3); WHITE BLOOD COUNT 14.17 K/uL (4.8-10.8)
[2017-10-30 06:31] LABS: CALCIUM 8.9 mg/dl (8.5-10.1); CREATININE 1.74 mg/dl (0.60-1.20); POTASSIUM 2.6 mmol/L (3.5-5.1)
[2017-10-30 06:36] LABS: BASO % 0.1 %; BASO ABS # 0.02 K/uL (0-0.2); EOS % 0.3 %; EOS ABS # 0.04 K/uL (0-0.5); IG# 0.27 K/uL (0.00-0.02); LYMPH % 3.2 %; LYMPH ABS # 0.46 K/uL (1.2-3.4); MONO % 1.9 %; MONO ABS # 0.27 K/uL (0.11-0.59); NEUT % 92.6 %; NEUT ABS # 13.11 K/uL (1.4-6.5)
[2017-10-30] MEDS: AMIODARONE 200 MG TAB PO SCH (07:46)
[2017-10-30] MEDS: ASPIRIN 81 MG ECTAB PO SCH (07:46)
[2017-10-30] MEDS: CHECK FENTANYL PATCH PLACEMENT SCH ×2 (07:47→15:32)
[2017-10-30] MEDS: ALLOPURINOL 100 MG TAB PO SCH (07:47)
[2017-10-30] MEDS: PANTOprazole SOD 40 MG TAB PO SCH (07:47)
[2017-10-30] MEDS: LORAZEPAM 0.5 MG TAB PO PRN (08:01)
[2017-10-30] MEDS ORDERED: POTASSIUM CHLORIDE 10 MEQ TABCR PO STA (08:22)
[2017-10-30] MEDS: MoRPHine SULFATE 2 MG/ML CARP IV PRN (09:44)
[2017-10-30] MEDS ORDERED: LORAZEPAM 2 MG/ML 1 ML VIAL IV PRN (10:00)
[2017-10-30] MEDS ORDERED: LORAZEPAM INJ 1 MG in SYRINGE 0.5 ML IV PRN (10:30)
--- NOTE | 2017-10-30 11:19 | Progress Note ---
Internal Med Progress Note Date of Service: Oct 30, 2017. Provider Documentation: SUBJECTIVE: The patient was seen and examined Feels better -asking about the heart rate Has had SOB with Wheezing yesterday CXR showed Pul Edema Condition deteriorated with very high BP,confusion and SOB Treated with IV Lasix,BIPAP,Ativan and Morphine 10/30 Has had another rough night yesterday with increased HR and SOV Received IV Diltiazem and IV Lasix Not yet any better thia AM Complains of pain in Knees Pleasantly confused this AM OBJECTIVE: Vital Signs-as noted below Exam: General-moderate distress at rest Eyes-Normal ENT-normal Neck-supple Lungs-decreased breath sound bilaterally Coarse crackles bilaterally Heart-Irregular,no murmur appreciated Abdomen-Benign,no masses Extremities-Trace edema bilaterally Has chronic deformities in legs Neuro-AAOX3 Has been mobile with wheelchair Lab data as noted below. ASSESSMENT & PLAN: SOB with Hypertensive urgency,AF with RVR Multifactorial Contributed by AF with RVR Received Digoxin,Hydralazine,Lasix ,Ativan and Morphine Discussed with the family members Has had another attack last night Seems to do better with Pain control Family members updated SEPSIS Has been in ICU for hypotension Possible related to aspiration pneumonia CXR showed showed new focal nodular opacity at the right lung base Elevated procalcitonin,Elevated WBC Started on Zosyn and vanco Blood cx and urine cx -Negative .D/C Vanco and will transition to oral Augmentin on discharge BP seems to be stable >100 systolic Feels a lot better will transfer to Tele Clinically better this AM -Reverted to SR AFIB WITH RVR Hx of paroxysmal AF Started on Amiodarone drip/bolus Now on oral Amiodarone [id number] - score about 5 (Age,sex,CVA, HTN) Cardiology consult-appreciate input Check Echo::: * The left ventricle is normal in size. * There is moderate concentric left ventricular hypertrophy. * Ejection Fraction = 60-65%. * The right ventricular systolic function is normal. * The left atrium is mildly dilated. * Right atrial size is normal. * Aortic valve sclerosis moderate, without significant aortic valvular stenosis. * There is mild to moderate mitral regurgitation. Paroxysmal course Requiring IV Digoxin,IV Cardizem and IV angiolytics to bring the rate down Clinically deteriorating Will put her for comfort care only PNEUMONIA CXR on admission showed left lower lobe infiltrate. Repeat cxr showed Focal nodular opacity at the right lung base Increased WCC and elevated procalcitonin Continue intravenous piperacillin/tazobactam Will change to Augmentin UTI Urine cx growth gram negative bacilli Growth E-coli and Klebsiella-sensitive to Augmentin On IV Zosyn and on Vanco D/C Vanco ,will transition to oral Augmentin on discharge Repeat urine cx -negative . DIARRHEA No more episode of diarrhea Stool for C-diff negative Daughter said pt has diarrhea twice a week and constipated for the other days HYPOTENSION Secondary to sepsis Received 3L IVF last night BP improved ABNORMAL EKG / ELEVATED TROPONIN Troponin was 0.051 on admission Possible related to infection vs dehydration EKG shows inferolateral T-wave changes. Repeat trop trending down to normal denies any chest pain Continue metoprolol, aspirin and statin. HYPERTENSION BP elevated on admission Metoprolol increased back to 50mg BID hydrochlorothiazide on hold Resume lisinopril Starting on IV hydralazine prn Continue monitor BP Hold BP med due to hypotension for now CKD III Serum creatinine 1.59 on admission Worsening renal function CXR showed pulmonary edema Has been diuresis on her own No additional IVF fluid Monitor BMP GOUT Continue allopurinol and prednisone. Stable RESUSCITATION STATUS FULL CODE VTE PROPHYLAXIS Nonambulatory. heparin drip No plan for intermediate anticoagulation D/C Heparin drip-Hb dropping DISPOSITION Monitor in the ICU Transfer to [facility] Will put for Comfort care and move to [place] Family members updated Vital Signs: Date Time Temp Pulse Resp B/P (MAP) Pulse Ox O2 Delivery O2 Flow Rate FiO2 10/30/17 08:00 Nasal Cannula 4.0 10/30/17 07:45 37.5 115 20 129/68 (88) 88 4.0 10/30/17 04:03 36.9 112 16 146/63 (90) 88 Nasal Cannula 5.0 10/30/17 04:00 Nasal Cannula 5.0 10/30/17 00:01 37.0 108 20 162/84 (110) 92 Nasal Cannula 4.0 10/29/17 23:59 Nasal Cannula 6.0 10/29/17 20:00 Nasal Cannula 5.0 10/29/17 19:00 37.0 114 21 129/86 (100) 92 Nasal Cannula 4.0 10/29/17 16:00 92 Nasal Cannula 4.0 10/29/17 15:32 37.3 98 24 132/63 (86) 94 Nasal Cannula 4.0 10/29/17 12:27 37.2 105 28 94/55 (68) 97 BiPAP 11.0 10/29/17 12:00 95 BiPAP 70 Lab Results: Results Past 24 Hours Test 10/30/17 05:33 Range/Units White Blood Count 14.17 4.8-10.8 K/uL Red Blood Count 3.11 4.2-5.4 M/uL Hemoglobin 9.7 12.0-16.0 g/dL Hematocrit 28.0 37-47 % Mean Corpuscular Volume 90.0 80-100 fL Mean Corpuscular Hemoglobin 31.2 25-34 pg Mean Corpuscular Hemoglobin Concent 34.6 32-36 g/dl Platelet Count 173 130-400 K/uL Mean Platelet Volume 9.2 7.4-10.4 fL Neutrophils (%) (Auto) 92.6 % Lymphocytes (%) (Auto) 3.2 % Monocytes (%) (Auto) 1.9 % Eosinophils (%) (Auto) 0.3 % Basophils (%) (Auto) 0.1 % Neutrophils # (Auto) 13.11 1.4-6.5 K/uL Lymphocytes # (Auto) 0.46 1.2-3.4 K/uL Monocytes # (Auto) 0.27 0.11-0.59 K/uL Eosinophils # (Auto) 0.04 0-0.5 K/uL Basophils # (Auto) 0.02 0-0.2 K/uL RDW Standard Deviation 52.1 36.4-46.3 fL RDW Coefficient of Variation 16.1 11.5-14.5 % Immature Granulocyte % (Auto) 1.9 % Immature Granulocyte # (Auto) 0.27 0.00-0.02 K/uL Sodium Level 138 136-145 mmol/L Potassium Level 2.6 3.5-5.1 mmol/L Chloride Level 105 98-107 mmol/L Carbon Dioxide Level 19 21-32 mmol/L Anion Gap 14.0 3-11 mmol/L Blood Urea Nitrogen 37 7-18 mg/dl Creatinine 1.74 0.60-1.20 mg/dl Est Creatinine Clear Calc Drug Dose 18.0 ml/min Estimated GFR () 30.0 Estimated GFR (Non- 25.9 BUN/Creatinine Ratio 21.1 10-20 Random Glucose 87 70-99 mg/dl Calcium Level 8.9 8.5-10.1 mg/dl
[2017-10-30] MEDS ORDERED: ATROPINE SULFATE 1% OP SOLN 5 ML BTL SL PRN (18:15)
[2017-10-30] MEDS ORDERED: DIGOXIN IV 125 MCG in SYRINGE 9.5 ML IV PRN (18:15)
[2017-10-30] MEDS: LORAZEPAM 2 MG/ML 1 ML VIAL IV PRN (20:41)
[2017-10-31] MEDS ORDERED: PIPERACILL/TAZOBAC IV 3.375 GM in DEXTROSE 5% 100ML IV SCH ×2
[2017-10-31] MEDS: CHECK FENTANYL PATCH PLACEMENT SCH ×3 (00:13→16:51)
[2017-10-31] MEDS: MoRPHine SULFATE 5 MG/0.25 ML UDP PO PRN ×5 (00:16→12:13)
[2017-10-31 01:42] VITALS: PULSE 86; O2SAT 94
[2017-10-31] MEDS: IPRATROPIUM BROMIDE NEB SOLN 0.02% 2.5 ML VIAL INH SCH ×4 (01:42→20:13)
[2017-10-31] MEDS: LEVALBUTEROL 1.25MG/0.5ML NEB INH SCH ×4 (01:42→20:13)
[2017-10-31] MEDS: LORAZEPAM INJ 1 MG in SYRINGE 0.5 ML IV PRN (02:00)
[2017-10-31 07:27] VITALS: PULSE 98; O2SAT 93
[2017-10-31] MEDS: LORAZEPAM 2 MG/ML 1 ML VIAL IV PRN ×2 (08:02→15:46)
[2017-10-31] MEDS: FENTANYL PATCH REMOVE & WASTE SCH (08:03)
[2017-10-31] MEDS: FENTANYL 12 MCG/HR TDSY TD SCH (08:03)
[2017-10-31] MEDS: MoRPHine SULFATE 2 MG/ML CARP IV PRN ×2 (13:19→19:19)
--- NOTE | 2017-10-31 14:01 | Progress Note ---
Internal Med Progress Note Date of Service: Oct 31, 2017. Provider Documentation: SUBJECTIVE: The patient was seen and examined Condition deteriorated Has had a long discussion with the Family members She was put under comfort care and moved to Medical floor Remains critical OBJECTIVE: Vital Signs-as noted below Exam: General-moderate distress at rest Confused Eyes-Normal ENT-normal Neck-supple Lungs-decreased breath sound bilaterally Coarse crackles bilaterally Heart-Irregular,no murmur appreciated Abdomen-Benign,no masses Extremities-Trace edema bilaterally Has chronic deformities in legs Neuro- Confused Lab data as noted below. ASSESSMENT & PLAN: Condition Deteriorated Going towards Multiorgan Failure Family members updated Under Comfort care now Remains free from pain and distress Below is the associated comorbidities:: SOB with Hypertensive urgency,AF with RVR Multifactorial Contributed by AF with RVR Received Digoxin,Hydralazine,Lasix ,Ativan and Morphine Discussed with the family members Has had another attack last night Seems to do better with Pain control Family members updated SEPSIS Has been in ICU for hypotension Possible related to aspiration pneumonia CXR showed showed new focal nodular opacity at the right lung base Elevated procalcitonin,Elevated WBC Started on Zosyn and vanco Blood cx and urine cx -Negative .D/C Vanco and will transition to oral Augmentin on discharge BP seems to be stable >100 systolic Feels a lot better will transfer to Tele Clinically better this AM -Reverted to SR AFIB WITH RVR Hx of paroxysmal AF Started on Amiodarone drip/bolus Now on oral Amiodarone [id number] - score about 5 (Age,sex,CVA, HTN) Cardiology consult-appreciate input Check Echo::: * The left ventricle is normal in size. * There is moderate concentric left ventricular hypertrophy. * Ejection Fraction = 60-65%. * The right ventricular systolic function is normal. * The left atrium is mildly dilated. * Right atrial size is normal. * Aortic valve sclerosis moderate, without significant aortic valvular stenosis. * There is mild to moderate mitral regurgitation. Paroxysmal course Requiring IV Digoxin,IV Cardizem and IV angiolytics to bring the rate down Clinically deteriorating Will put her for comfort care only PNEUMONIA CXR on admission showed left lower lobe infiltrate. Repeat cxr showed Focal nodular opacity at the right lung base Increased WCC and elevated procalcitonin Continue intravenous piperacillin/tazobactam Will change to Augmentin UTI Urine cx growth gram negative bacilli Growth E-coli and Klebsiella-sensitive to Augmentin On IV Zosyn and on Vanco D/C Vanco ,will transition to oral Augmentin on discharge Repeat urine cx -negative . DIARRHEA No more episode of diarrhea Stool for C-diff negative Daughter said pt has diarrhea twice a week and constipated for the other days HYPOTENSION Secondary to sepsis Received 3L IVF last night BP improved ABNORMAL EKG / ELEVATED TROPONIN Troponin was 0.051 on admission Possible related to infection vs dehydration EKG shows inferolateral T-wave changes. Repeat trop trending down to normal denies any chest pain Continue metoprolol, aspirin and statin. HYPERTENSION BP elevated on admission Metoprolol increased back to 50mg BID hydrochlorothiazide on hold Resume lisinopril Starting on IV hydralazine prn Continue monitor BP Hold BP med due to hypotension for now CKD III Serum creatinine 1.59 on admission Worsening renal function CXR showed pulmonary edema Has been diuresis on her own No additional IVF fluid Monitor BMP GOUT Continue allopurinol and prednisone. Stable RESUSCITATION STATUS FULL CODE VTE PROPHYLAXIS Nonambulatory. heparin drip No plan for jail anticoagulation D/C Heparin drip-Hb dropping DISPOSITION Monitor in the ICU Transfer to [facility] Will put for Comfort care and move to [place] Family members updated Vital Signs: Date Time Temp Pulse Resp B/P (MAP) Pulse Ox O2 Delivery O2 Flow Rate FiO2 10/31/17 08:00 Nasal Cannula 4.0 10/31/17 07:27 98 22 93 Nasal Cannula 4.0 10/31/17 01:42 86 22 94 Nasal Cannula 4.0 10/31/17 00:00 Nasal Cannula 4.0 10/30/17 19:39 78 22 93 Nasal Cannula 4.0 10/30/17 19:00 Nasal Cannula 4.0 10/30/17 17:32 73 20 122/73 (89) Nasal Cannula 4.0 10/30/17 15:20 36.5 74 17 129/61 (83) 100 Room Air 10/30/17 14:19 84 20 92 Nasal Cannula 4.0
[2017-11-01] MEDS: LORAZEPAM 2 MG/ML 1 ML VIAL IV PRN ×3 (01:31→18:43)
[2017-11-01] MEDS: IPRATROPIUM BROMIDE NEB SOLN 0.02% 2.5 ML VIAL INH SCH ×4 (02:13→19:35)
[2017-11-01] MEDS: LEVALBUTEROL 1.25MG/0.5ML NEB INH SCH ×4 (02:13→19:35)
[2017-11-01] MEDS: MoRPHine SULFATE 2 MG/ML CARP IV PRN ×3 (03:11→09:36)
[2017-11-01 07:21] VITALS: PULSE 82; O2SAT 90
[2017-11-01] MEDS: CHECK FENTANYL PATCH PLACEMENT SCH ×3 (08:04→16:05)
--- NOTE | 2017-11-01 14:49 | Progress Note ---
Internal Med Progress Note Date of Service: Nov 01, 2017. Provider Documentation: SUBJECTIVE: The patient was seen and examined Condition deteriorated Has had a long discussion with the Family members She was put under comfort care and moved to Medical floor Remains critical and unresponsive Remains free of pain OBJECTIVE: Vital Signs-as noted below Exam: General-moderate distress at rest Unresponsive Eyes-Normal ENT-normal Neck-supple Lungs-decreased breath sound bilaterally Coarse crackles bilaterally Heart-Irregular,no murmur appreciated Abdomen-Benign,no masses Extremities-Trace edema bilaterally Has chronic deformities in legs Neuro- Unresponsive Lab data as noted below. ASSESSMENT & PLAN: Condition Deteriorated Going towards Multiorgan Failure Family members updated Under Comfort care now Remains free from pain and distress Remains unresponsive but not in any distress Below is the associated comorbidities:: SOB with Hypertensive urgency,AF with RVR Multifactorial Contributed by AF with RVR Received Digoxin,Hydralazine,Lasix ,Ativan and Morphine Discussed with the family members Has had another attack last night Seems to do better with Pain control Family members updated SEPSIS Has been in ICU for hypotension Possible related to aspiration pneumonia CXR showed showed new focal nodular opacity at the right lung base Elevated procalcitonin,Elevated WBC Started on Zosyn and vanco Blood cx and urine cx -Negative .D/C Vanco and will transition to oral Augmentin on discharge BP seems to be stable >100 systolic Feels a lot better will transfer to Tele Clinically better this AM -Reverted to SR AFIB WITH RVR Hx of paroxysmal AF Started on Amiodarone drip/bolus Now on oral Amiodarone [id number] - score about 5 (Age,sex,CVA, HTN) Cardiology consult-appreciate input Check Echo::: * The left ventricle is normal in size. * There is moderate concentric left ventricular hypertrophy. * Ejection Fraction = 60-65%. * The right ventricular systolic function is normal. * The left atrium is mildly dilated. * Right atrial size is normal. * Aortic valve sclerosis moderate, without significant aortic valvular stenosis. * There is mild to moderate mitral regurgitation. Paroxysmal course Requiring IV Digoxin,IV Cardizem and IV angiolytics to bring the rate down Clinically deteriorating Will put her for comfort care only PNEUMONIA CXR on admission showed left lower lobe infiltrate. Repeat cxr showed Focal nodular opacity at the right lung base Increased WCC and elevated procalcitonin Continue intravenous piperacillin/tazobactam Will change to Augmentin UTI Urine cx growth gram negative bacilli Growth E-coli and Klebsiella-sensitive to Augmentin On IV Zosyn and on Vanco D/C Vanco ,will transition to oral Augmentin on discharge Repeat urine cx -negative . DIARRHEA No more episode of diarrhea Stool for C-diff negative Daughter said pt has diarrhea twice a week and constipated for the other days HYPOTENSION Secondary to sepsis Received 3L IVF last night BP improved ABNORMAL EKG / ELEVATED TROPONIN Troponin was 0.051 on admission Possible related to infection vs dehydration EKG shows inferolateral T-wave changes. Repeat trop trending down to normal denies any chest pain Continue metoprolol, aspirin and statin. HYPERTENSION BP elevated on admission Metoprolol increased back to 50mg BID hydrochlorothiazide on hold Resume lisinopril Starting on IV hydralazine prn Continue monitor BP Hold BP med due to hypotension for now CKD III Serum creatinine 1.59 on admission Worsening renal function CXR showed pulmonary edema Has been diuresis on her own No additional IVF fluid Monitor BMP GOUT Continue allopurinol and prednisone. Stable RESUSCITATION STATUS FULL CODE VTE PROPHYLAXIS Nonambulatory. 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
--- NOTE | 2017-11-01 15:29 | Palliative Care Progress Note ---
Palliative Care Progress Note Date of Service Nov 01, 2017. Subjective Pt evaluation today including: conversation w/ patient, conversation w/ family , physical exam, chart review, conversation w/ it security consultant Pain: no s/s of pain at this time PO Intake: none Voiding: severino catheter in place -Patient is now obtunded. Was transitioned to comfort measures only over the weekend. -Two daughters Nickie and Ros at bedside. Support given, questions answered. Review of Systems unable to obtain due to obtundation Objective Vital Signs Date Time Temp Pulse Resp B/P (MAP) Pulse Ox O2 Delivery O2 Flow Rate FiO2 11/01/17 08:00 Nasal Cannula 11/01/17 07:21 82 24 90 Nasal Cannula 0.5 11/01/17 00:00 Nasal Cannula 2.5 10/31/17 19:00 Nasal Cannula 2.5 10/31/17 16:00 Nasal Cannula 2.5 Physical Exam General Appearance: no apparent distress Neck: no JVD Respiratory/Chest: no respiratory distress, no accessory muscle use Cardiovascular: regular rate, rhythm, + pertinent finding (weak peripheral pulses) Abdomen: normal bowel sounds Neurologic/Psychiatric: + pertinent finding (obtunded) Skin: + pertinent finding (toes are cool) Assessment and Plan Problem list: Contracted Dyspnea Pulmonary edema Tachycardia Goals of care Palliative care recs: discussed with patient's daughters at bedside. -Comfort measures only. Patient is actively dying. -Continue comfort medications as ordered. -May be candidate for [facility] hospice. Will see what 24 hour comfort medication needs are. -Support and education given to patient's daughters. Total time spent 35 minutes with >50% of time spent with patient's family at bedside counseling and discussing plan of care. Palliative Performance Scale: 10 % Continued [facility] stay due to: multiple IV medications needed
[2017-11-01] MEDS ORDERED: ACETAMINOPHEN 650 MG SUPP PR ONE (19:17)
[2017-11-01] MEDS ORDERED: ACETAMINOPHEN 650 MG SUPP PR PRN (19:30)
[2017-11-02] MEDS: LORAZEPAM INJ 1 MG in SYRINGE 0.5 ML IV PRN ×3 (01:04→23:40)
[2017-11-02] MEDS: MoRPHine SULFATE 2 MG/ML CARP IV PRN ×6 (01:39→23:40)
[2017-11-02] MEDS: IPRATROPIUM BROMIDE NEB SOLN 0.02% 2.5 ML VIAL INH SCH ×4 (03:00→19:24)
[2017-11-02] MEDS: LEVALBUTEROL 1.25MG/0.5ML NEB INH SCH ×4 (03:00→19:24)
[2017-11-02] MEDS ORDERED: NURSING VERBAL MED ORDER ONE (09:15)
[2017-11-02] MEDS: CHECK FENTANYL PATCH PLACEMENT SCH ×3 (09:42→15:57)
[2017-11-02] MEDS: LORAZEPAM 2 MG/ML 1 ML VIAL IV PRN ×2 (11:03→21:38)
--- NOTE | 2017-11-02 13:17 | Palliative Care Progress Note ---
Palliative Care Progress Note Date of Service Nov 02, 2017. Subjective Pt evaluation today including: conversation w/ family, physical exam, chart review, review of inpatient medication list Patient continues to be lethargic/obtunded. Requiring PRN IV medications for comfort. Daughters at bedside this AM. See plan below. Review of Systems unable to obtain due to patient condition Objective Vital Signs Date Time Temp Pulse Resp B/P (MAP) Pulse Ox O2 Delivery O2 Flow Rate FiO2 11/02/17 09:30 Nasal Cannula 4.0 11/02/17 00:05 Room Air Physical Exam General Appearance: + pertinent finding (frail, elderly, contracted) ENT: + pertinent finding (no secretions noted) Respiratory/Chest: no accessory muscle use, + decreased breath sounds Cardiovascular: regular rate, rhythm, + normal peripheral pulses Abdomen: normal bowel sounds Neurologic/Psychiatric: + pertinent finding (obtunded) Assessment and Plan Problem list: Contracted Dyspnea Pulmonary edema Tachycardia Goals of care Palliative care recs: discussed with patient's daughters at bedside and primary RN. -Comfort measures only. Patient is actively dying. -Continue comfort medications as ordered. -Patient is requiring PRN morphine and Ativan to control symptoms. Patient has periods of restlessness, likely terminal agitation, over night which requiring increased frequency of IV Ativan today. Now ordered lorazepam 1mg Q2h PRN. -Patient requiring continued prison assessment for symptom management in a nonverbal patient. For these reasons I believe she qualifies for [facility] hospice. Will make referral to [facility], who patient's family is already involved with, for [facility] hospice. Total time spent 25 minutes with >50% of time spent with patient's family at bedside counseling and discussing plan of care. Palliative Performance Scale: 10 % Continued [facility] stay due to: multiple IV medications needed
--- NOTE | 2017-11-02 16:00 | Progress Note ---
Internal Med Progress Note Date of Service: Nov 02, 2017. Provider Documentation: SUBJECTIVE: unresponsive seems comfortable on comfort care daughter in room OBJECTIVE: Vital Signs-as noted below Exam: General-unresponsive Lungs-cta b/l no wheezing or crackles Heart-S1 and S2 heard regular rate and rhythm no murmurs Abdomen-Soft bowel sounds present no distension Extremities-no edema no erythema Neuro-drowsy Lab data as noted below. ASSESSMENT & PLAN: 87F presented with sepsis, hypotension from Pneumonia/aspiration? ,UTI, rapid afib was on amiodarone drip , received iv abx and was not improving and patient was changed to comfort care only. To continue comfort care hospital course: SOB with Hypertensive urgency,AF with RVR Received Digoxin,Hydralazine,Lasix ,Ativan and Morphine currently comfort care only SEPSIS Has been in ICU for hypotension Possible related to aspiration pneumonia CXR showed showed new focal nodular opacity at the right lung base Elevated procalcitonin,Elevated WBC was on Zosyn and vanco currently comfort care AFIB WITH RVR Hx of paroxysmal AF Was started on Amiodarone drip/bolus Requiring IV Digoxin,IV Cardizem and IV angiolytics to bring the rate down Clinically deteriorating cardiology was on board currently comfort care only PNEUMONIA CXR on admission showed left lower lobe infiltrate. Repeat cxr showed Focal nodular opacity at the right lung base received abx as above. UTI Urine cx growth gram negative bacilli Growth E-coli and Klebsiella-sensitive to Augmentin Was On IV Zosyn and on Vanco Repeat urine cx -negative . DIARRHEA Stool for C-diff negative seems pt has diarrhea twice a week and constipated for the other days as per daughter HYPOTENSION Secondary to sepsis Received 3L IVF BP improved ABNORMAL EKG / ELEVATED TROPONIN Troponin was 0.051 on admission Possible related to infection vs dehydration. demand ischemia EKG shows inferolateral T-wave changes. Repeat trop trending down to normal denies any chest pain on metoprolol, aspirin and statin. HYPERTENSION Held BP med due to hypotension currently on comfort care CKD III Serum creatinine 1.59 on admission Worsening renal function CXR showed pulmonary edema No additional IVF fluid currently comfort care only GOUT was on allopurinol and prednisone. Stable RESUSCITATION STATUS DNR VTE PROPHYLAXIS scds DISPOSITION currently comfort care only Vital Signs: Date Time Temp Pulse Resp B/P (MAP) Pulse Ox O2 Delivery O2 Flow Rate FiO2 11/02/17 09:30 Nasal Cannula 4.0 11/02/17 00:05 Room Air
[2017-11-03] VITALS: O2SAT 90
[2017-11-03] MEDS: CHECK FENTANYL PATCH PLACEMENT SCH ×3 (00:22→15:23)
[2017-11-03] MEDS: MoRPHine SULFATE 2 MG/ML CARP IV PRN ×4 (01:47→17:02)
[2017-11-03] MEDS: IPRATROPIUM BROMIDE NEB SOLN 0.02% 2.5 ML VIAL INH SCH ×2 (01:51→09:00)
[2017-11-03] MEDS: LEVALBUTEROL 1.25MG/0.5ML NEB INH SCH ×2 (01:51→09:00)
[2017-11-03] MEDS: LORAZEPAM INJ 1 MG in SYRINGE 0.5 ML IV PRN (02:15)
[2017-11-03] MEDS ORDERED: SCOPOLAMINE 1.5 MG TDSY TD PRN (03:45)
[2017-11-03] MEDS: LORAZEPAM 2 MG/ML 1 ML VIAL IV PRN ×3 (07:25→17:02)
[2017-11-03] MEDS: MoRPHine SULFATE 5 MG/0.25 ML UDP PO PRN ×3 (07:25→17:57)
[2017-11-03] MEDS: CHECK SCOPOLAMINE PATCH PLACEMENT SCH ×2 (07:26→15:23)
[2017-11-03] MEDS: FENTANYL 12 MCG/HR TDSY TD SCH (11:18)
[2017-11-03] MEDS: FENTANYL PATCH REMOVE & WASTE SCH (11:20)
[2017-11-03] MEDS ORDERED: IPRATROPIUM BROMIDE NEB SOLN 0.02% 2.5 ML VIAL INH PRN (13:15)
[2017-11-03] MEDS ORDERED: LEVALBUTEROL 1.25MG/0.5ML NEB INH PRN (13:15)
--- NOTE | 2017-11-03 14:19 | Progress Note ---
Internal Med Progress Note Date of Service: Nov 03, 2017. Provider Documentation: SUBJECTIVE: unresponsive comfortable daughter in room OBJECTIVE: Vital Signs-as noted below Exam: General-unresponsive Lungs-cta b/l no wheezing or crackles Heart-S1 and S2 heard regular rate and rhythm no murmurs Abdomen-Soft bowel sounds present no distension Extremities-no edema no erythema Neuro-drowsy Lab data as noted below. ASSESSMENT & PLAN: 87F presented with sepsis, hypotension from Pneumonia/aspiration? ,UTI, rapid afib was on amiodarone drip , received iv abx and was not improving and patient was changed to comfort care only. To continue current comfort care hospital course: SOB with Hypertensive urgency,AF with RVR Received Digoxin,Hydralazine,Lasix ,Ativan and Morphine currently comfort care only SEPSIS Has been in ICU for hypotension Possible related to aspiration pneumonia CXR showed showed new focal nodular opacity at the right lung base Elevated procalcitonin,Elevated WBC was on Zosyn and vanco currently comfort care AFIB WITH RVR Hx of paroxysmal AF Was started on Amiodarone drip/bolus Requiring IV Digoxin,IV Cardizem and IV angiolytics to bring the rate down Clinically deteriorating cardiology was on board currently comfort care only PNEUMONIA CXR on admission showed left lower lobe infiltrate. Repeat cxr showed Focal nodular opacity at the right lung base received abx as above. UTI Urine cx growth gram negative bacilli Growth E-coli and Klebsiella-sensitive to Augmentin Was On IV Zosyn and on Vanco Repeat urine cx -negative . DIARRHEA Stool for C-diff negative seems pt has diarrhea twice a week and constipated for the other days as per daughter HYPOTENSION Secondary to sepsis Received 3L IVF BP improved ABNORMAL EKG / ELEVATED TROPONIN Troponin was 0.051 on admission Possible related to infection vs dehydration. demand ischemia EKG shows inferolateral T-wave changes. Repeat trop trending down to normal denies any chest pain on metoprolol, aspirin and statin. HYPERTENSION Held BP med due to hypotension currently on comfort care CKD III Serum creatinine 1.59 on admission Worsening renal function CXR showed pulmonary edema No additional IVF fluid currently comfort care only GOUT was on allopurinol and prednisone. Stable RESUSCITATION STATUS DNR VTE PROPHYLAXIS scds DISPOSITION currently comfort care only Vital Signs: Date Time Temp Pulse Resp B/P (MAP) Pulse Ox O2 Delivery O2 Flow Rate FiO2 11/03/17 08:55 Nasal Cannula 4.0 11/03/17 00:00 90 Nasal Cannula 4.0 70 11/02/17 16:00 Nasal Cannula 4.0
[2017-11-04] MEDS: CHECK FENTANYL PATCH PLACEMENT SCH ×3 (00:15→16:55)
[2017-11-04] MEDS: CHECK SCOPOLAMINE PATCH PLACEMENT SCH ×3 (00:15→16:56)
[2017-11-04] MEDS: MoRPHine SULFATE 2 MG/ML CARP IV PRN ×6 (00:47→14:14)
[2017-11-04] MEDS: LORAZEPAM INJ 1 MG in SYRINGE 0.5 ML IV PRN (02:18)
[2017-11-04] MEDS: LORAZEPAM 2 MG/ML 1 ML VIAL IV PRN ×3 (08:52→14:14)
[2017-11-04] MEDS ORDERED: MORPHINE SULF/NSS 250MG/250ML IV PRN (13:15)
[2017-11-04] MEDS ORDERED: NURSING VERBAL MED ORDER ONE (13:15)
--- NOTE | 2017-11-04 13:53 | Palliative Care Progress Note ---
Palliative Care Progress Note Date of Service Nov 04, 2017. Subjective Pt evaluation today including: conversation w/ patient, conversation w/ family (daughter, Nickie), physical exam, chart review, conversation w/ [employer] identity management consultant (Dr. Camacho), review of inpatient medication list Pain: tachypneic Voiding: severino catheter in place Patient more tachypneic today. Requiring frequent doses of IV morphine PRN. Will start continuous morphine infusion today. Review of Systems unable to obtain due to obtundation Objective Vital Signs Date Time Temp Pulse Resp B/P (MAP) Pulse Ox O2 Delivery O2 Flow Rate FiO2 11/04/17 08:15 40 11/04/17 08:10 Nasal Cannula 2.0 11/04/17 00:05 Nasal Cannula 2.0 11/03/17 16:00 Nasal Cannula 2.0 Physical Exam General Appearance: no apparent distress ENT: hearing grossly normal Neck: supple, no JVD Respiratory/Chest: + decreased breath sounds, + pertinent finding (tachypneic, resp rate in 40s today) Cardiovascular: regular rate, rhythm, no edema Abdomen: normal bowel sounds, non tender, soft Neurologic/Psychiatric: + pertinent finding (obtunded) Assessment and Plan Problem list: Contracted Dyspnea/tachypnea Pulmonary edema Tachycardia Goals of care Palliative care recs: discussed with patient's daughters at bedside and primary RN. -Comfort measures only. Patient is actively dying. -Continue comfort medications as ordered. -Patient is requiring frequent PRN morphine today for increased tachypnea/ dyspnea. Will start continuous morphine infusion: 2mg/hr, titrate by 1mg/hr Q15min PRN pain/SOB/tachypnea. -Continue IV lorazepam 1mg IV Q2h as needed for terminal agitation/ restlessness. -Continued longterm for assessment/symptom management in a nonverbal patient is required. -For these reasons I believe she qualifies for [facility] hospice. Referral to [facility], who patient's family is already involved with, for [facility] hospice. Total time spent 25 minutes with >50% of time spent with patient's family at bedside counseling and discussing plan of care. Palliative Performance Scale: 10 % Continued [facility] stay due to: multiple IV medications needed
--- NOTE | 2017-11-04 17:55 | Progress Note ---
Internal Med Progress Note Date of Service: Nov 04, 2017. Provider Documentation: SUBJECTIVE: unresponsive comfortable daughters in room currently on morphine drip OBJECTIVE: Vital Signs-as noted below Exam: General-unresponsive Lungs-cta b/l no wheezing or crackles Heart-S1 and S2 heard regular rate and rhythm no murmurs Abdomen-Soft bowel sounds present no distension Extremities-no edema no erythema Neuro-drowsy Lab data as noted below. ASSESSMENT & PLAN: 87F presented with sepsis, hypotension from Pneumonia/aspiration? ,UTI, rapid afib was on amiodarone drip , received iv abx and was not improving and patient was changed to comfort care only. Started on morphine drip today.To continue current comfort care hospital course: SOB with Hypertensive urgency,AF with RVR Received Digoxin,Hydralazine,Lasix ,Ativan and Morphine currently comfort care only SEPSIS Has been in ICU for hypotension Possible related to aspiration pneumonia CXR showed showed new focal nodular opacity at the right lung base Elevated procalcitonin,Elevated WBC was on Zosyn and vanco currently comfort care AFIB WITH RVR Hx of paroxysmal AF Was started on Amiodarone drip/bolus Requiring IV Digoxin,IV Cardizem and IV angiolytics to bring the rate down Clinically deteriorating cardiology was on board currently comfort care only PNEUMONIA CXR on admission showed left lower lobe infiltrate. Repeat cxr showed Focal nodular opacity at the right lung base received abx as above. UTI Urine cx growth gram negative bacilli Growth E-coli and Klebsiella-sensitive to Augmentin Was On IV Zosyn and on Vanco Repeat urine cx -negative . DIARRHEA Stool for C-diff negative seems pt has diarrhea twice a week and constipated for the other days as per daughter HYPOTENSION Secondary to sepsis Received 3L IVF BP improved ABNORMAL EKG / ELEVATED TROPONIN Troponin was 0.051 on admission Possible related to infection vs dehydration. demand ischemia EKG shows inferolateral T-wave changes. Repeat trop trending down to normal denies any chest pain on metoprolol, aspirin and statin. HYPERTENSION Held BP med due to hypotension currently on comfort care CKD III Serum creatinine 1.59 on admission Worsening renal function CXR showed pulmonary edema No additional IVF fluid currently comfort care only GOUT was on allopurinol and prednisone. Stable RESUSCITATION STATUS DNR VTE PROPHYLAXIS scds DISPOSITION currently comfort care only Vital Signs: Date Time Temp Pulse Resp B/P (MAP) Pulse Ox O2 Delivery O2 Flow Rate FiO2 3/15/18 08:15 40 11/04/17 08:10 Nasal Cannula 2.0 11/04/17 00:05 Nasal Cannula 2.0
[2017-11-05] MEDS: CHECK SCOPOLAMINE PATCH PLACEMENT SCH (00:22)
[2017-11-05] MEDS: CHECK FENTANYL PATCH PLACEMENT SCH (00:23)
[2017-11-05] MEDS: FENTANYL PATCH REMOVE & WASTE SCH (02:59)
--- NOTE | 2017-11-05 19:51 | Discharge Summary ---
Discharge Summary Date of Service Nov 05, 2017. Discharge Summary Admission Date: Oct 19, 2017 at 16:24 Discharge Disposition: Home () Principal Diagnosis: SEPSIS PNEUMONIA UTI RAPID AFIB Secondary Diagnoses/Problems: (1) Arthritis Status: Chronic (2) Chronic kidney disease (CKD), stage III (moderate) Status: Chronic (3) H/O: CVA (cerebrovascular accident) Permanent Comment: With residual L sided weakness Status: Chronic (4) History of colon cancer Status: Chronic (5) History of DVT of lower extremity Status: Chronic (6) HTN (hypertension) Status: Chronic (7) Kidney disease Status: Chronic (8) Macular degeneration Status: Chronic (9) Paroxysmal atrial fibrillation Status: Chronic Procedures: CXR; 1. Cardiomegaly and mild pulmonary vascular congestion without overt pulmonary edema. 2. Subsegmental left basilar opacities favor atelectasis. CT ABD/PELVIS: 1. Extensive peribronchovascular consolidation in the left lower lobe consistent with pneumonia. 2. Fluid in the colon suggests a diarrheal state. No evidence to suggest severe colitis. No free air for bowel obstruction. 3. Osteopenia with multiple compression deformities which are fairly similar to the prior exam 2014. 4. Postsurgical changes of partial sigmoidectomy with rectal anastomosis. CT HEAD: There is no hemorrhage, mass effect, or evidence of acute territorial ischemia by CT criteria. ECHO: The left ventricle is normal in size. * There is moderate concentric left ventricular hypertrophy. * Ejection Fraction = 60-65%. * The right ventricular systolic function is normal. * The left atrium is mildly dilated. * Right atrial size is normal. * Aortic valve sclerosis moderate, without significant aortic valvular stenosis. * There is mild to moderate mitral regurgitation. Consultations: CARDIOLOGY CRITICAL CARE Admission Information HPI (per Admitting provider): 87-year-old female followed by Dr. Amezquita. History of paroxysmal atrial fibrillation, cerebrovascular disease, DVT, and other problems as noted below. She is bed-chair bound due to history of stroke and arthritis. Lives at home, cared for by her family. She has had a mild cough for about a week, but did not feel ill. This morning she experienced nausea, vomiting, diarrhea. No associated hematemesis, melena, hematochezia, abdominal pain. No fever, chills, sweats. Brought to the ED for evaluation. Found to be hypertensive and received fluid resuscitation with improvement of blood pressures. . Physical Exam (per Admitting): Constitutional- vital signs as noted above; elderly female well-developed well- nourished ; no acute distress Eyes- PERRL; sclerae anicteric; conjunctivae clear ENT -external examination of ears and nose unremarkable; hearing grossly intact ; edentulous; oropharynx clear Neck- no masses; trachea midline; no thyromegaly or thyroid masses Lungs- rales left base clear to percussion; no respiratory distress Cardiovascular- RRR; 2/6 systolic murmur at base; no gallop appreciated; no JVD ; trace pretibial edema; pedal pulses diminished Abdomen-quiet bowel sounds; nondistended; nontender; no palpable masses or hepatosplenomegaly Extremities- no cyanosis; no calf tenderness Musculoskeletal- neck supple; contractures of left hip and left knee Neuro- alert, oriented; PERRL, EOMI, no facial palsy; no dysarthria; left hemiparesis Psychiatric- normal affect Skin- warm & dry; chronic venous stasis changes left lower extremity; skin tear left upper arm . Hospital Course 87F presented with sepsis, hypotension from Pneumonia/aspiration? ,UTI, rapid afib was on amiodarone drip , received iv abx and was not improving and patient was changed to comfort care only. Started on morphine drip today.To continue current comfort care. PATIENT ON October AT 01:50AM. hospital course: SOB with Hypertensive urgency,AF with RVR Received Digoxin,Hydralazine,Lasix ,Ativan and Morphine currently comfort care only SEPSIS Has been in ICU for hypotension Possible related to aspiration pneumonia CXR showed showed new focal nodular opacity at the right lung base Elevated procalcitonin,Elevated WBC was on Zosyn and vanco currently comfort care AFIB WITH RVR Hx of paroxysmal AF Was started on Amiodarone drip/bolus Requiring IV Digoxin,IV Cardizem and IV angiolytics to bring the rate down Clinically deteriorating cardiology was on board currently comfort care only PNEUMONIA CXR on admission showed left lower lobe infiltrate. Repeat cxr showed Focal nodular opacity at the right lung base received abx as above. UTI Urine cx growth gram negative bacilli Growth E-coli and Klebsiella-sensitive to Augmentin Was On IV Zosyn and on Vanco Repeat urine cx -negative . DIARRHEA Stool for C-diff negative seems pt has diarrhea twice a week and constipated for the other days as per daughter HYPOTENSION Secondary to sepsis Received 3L IVF BP improved ABNORMAL EKG / ELEVATED TROPONIN Troponin was 0.051 on admission Possible related to infection vs dehydration. demand ischemia EKG shows inferolateral T-wave changes. Repeat trop trending down to normal denies any chest pain on metoprolol, aspirin and statin. HYPERTENSION Held BP med due to hypotension currently on comfort care CKD III Serum creatinine 1.59 on admission Worsening renal function CXR showed pulmonary edema No additional IVF fluid currently comfort care only GOUT was on allopurinol and prednisone. Stable RESUSCITATION STATUS DNR VTE PROPHYLAXIS scds DISPOSITION currently comfort care only Total time spent on discharge = 30MINUTES This includes examination of the patient, discharge planning, medication reconciliation, and communication with other providers. Discharge Instructions PATIENT
== END 2017-11-05 01:50 | disposition expired | DRG 871 ==
LOC: EDBD 11:15 → C.EDB 11:16 → C.2E 16:24 → ENRESERV 17:47 → C.MSICU 10-25 06:49 → ENRESERV 10-27 10:34 → C.2E 10-27 11:28 → ENRESERV 10-30 15:29 → CANRESERV 10-30 15:29 → ENRESERV 10-30 15:38 → C.4E 10-30 15:58
PROVIDERS: ADMIT Hospitalist; ATTEND Internal Medicine
DX: A41.51 Sepsis due to Escherichia coli [E. coli] (principal); J69.0 Pneumonitis due to inhalation of food and vomit; I69.954 Hemiplegia and hemiparesis following unspecified cerebrovascular disease affecting left non-dominant side; Z51.5 Encounter for palliative care; N39.0 Urinary tract infection, site not specified; N17.9 Acute kidney failure, unspecified; G93.41 Metabolic encephalopathy; A41.59 Other Gram-negative sepsis; I48.0 Paroxysmal atrial fibrillation; Z86.718 Personal history of other venous thrombosis and embolism; H35.30 Unspecified macular degeneration; Z83.3 Family history of diabetes mellitus; Z88.7 Allergy status to serum and vaccine; E86.0 Dehydration; Z74.09 Other reduced mobility; N18.3 Chronic kidney disease, stage 3 (moderate); Z85.038 Personal history of other malignant neoplasm of large intestine; M1A.9XX0 Chronic gout, unspecified, without tophus (tophi); I95.89 Other hypotension; I16.0 Hypertensive urgency; R09.02 Hypoxemia